=== PATIENT | female | born 1980 | race Caucasian/White ===

== ENCOUNTER → 2023-11-05 12:13 | Outpatient (REF) | payer OTHER, SELFPAY | LOC: HWRAD 12:13 | PROVIDERS: ATTENDING PHYSICIAN Nurse Practitioner Family; FAMILY PHYSICIAN Family Medicine | DX: M25.562 Pain in left knee (principal) | CPT/HCPCS: 73564 ==

== ENCOUNTER 2025-08-10 15:42 | Inpatient (IN) | payer OTHER, SELFPAY ==
[2025-08-10 13:16] VITALS: BP 129/80
[2025-08-10 13:26] VITALS: BMI 43.0
[2025-08-10 13:30] VITALS: BP 152/105
--- NOTE | 2025-08-10 13:34 | ED.GENMED ---
History of Present Illness
General
Chief Complaint: Chest Pain
Source: patient and family
Exam Limitations: none
Time Seen by Provider: 08/10/25 13:33
Nursing documentation reviewed up to this point in time: agreed with
History of Present Illness
History of Present Illness:
Note:
CHIEF COMPLAINT(S)
Chest pain.
HISTORY OF PRESENT ILLNESS
The patient is a 45-year-old female presenting with acute left-sided chest pain, which began approximately one hour prior to this evaluation. She reported that the pain began suddenly while she was taking care of her mother. Upon questioning, the
patient indicated that she has never experienced similar symptoms in the past. She currently smokes cigarettes, having recently started, and does not consume alcohol. The patient denies personal history of heart disease but mentions a family history
of cardiac problems. Upon examination and review of her symptoms, the patient was informed she is likely experiencing a myocardial infarction (heart attack). Immediate treatment in the emergency department included administration of aspirin,
heparin, and ticagrelor. Additional evaluation through cardiac catheterization is planned to assess for coronary artery blockages.
PAST MEDICAL AND SURIGICAL HISTORY
The patient has diabetes, hypertension, and hyperlipidemia.
CHRONIC MEDICAL CONDITIONS SIGNIFICANTLY AFFECTING CARE
Diabetes, hypertension, and hyperlipidemia are noted as chronic conditions.
SOCIAL HISTORY
The patient smokes cigarettes. No alcohol consumption is reported.
PHYSICAL EXAM
General: Alert, no acute distress.
Skin: Warm, dry.
Head: Normocephalic, atraumatic.
Neck: Supple, trachea midline.
Eye, Ears, Nose, Mouth, and Throat: Oral mucosa moist.
Cardiovascular: Normal peripheral perfusion, no edema. s1,s2, no murmurs
Respiratory: Respirations are non-labored. clear bilateral.
Gastrointestinal: Abdomen nondistended.
Back: Normal range of motion, normal alignment.
Musculoskeletal: Normal range of motion, normal strength.
Neurological: Alert and oriented to person, place, time, and situation, no focal neurological deficit observed.
Psychiatric: Cooperative, appropriate mood and affect.
PLAN
- Administered aspirin, heparin, and ticagrelor.
- Cardiac catheterization is planned to determine the presence of coronary artery blockages.
- Patient education on the procedure and potential findings.
DIFFERENTIAL DIAGNOSIS
The Differential Diagnosis includes, in no particular order and is not limited to:
1. Myocardial infarction
2. Angina pectoris
3. Pulmonary embolism
4. Aortic dissection
5. Pericarditis
6. Esophageal spasm
7. Gastroesophageal reflux disease
8. Panic attack
9. Costochondritis
10. Pneumothorax
EKG
My independent EKG interpretation is:
- Time of EKG: Not specified
- Rhythm: Normal sinus rhythm
- Heart Rate: 65 bpm
- [place] Interval: Not mentioned
- QRS Duration: Normal
- QT Interval: Not mentioned
- [place]: Normal
- Notable Abnormalities: ST elevation in inferior and lateral leads
- Additional Findings: ST depressions in concordant leads
Disposition:
SUMMARY OF ENCOUNTER
The patient, a 45-year-old female, presented to the emergency department with acute left-sided chest pain that began suddenly approximately one hour before evaluation. Given the presentation and risk factors, including smoking and family history of
cardiac issues, a myocardial infarction (heart attack) was suspected. Management in the emergency department included administration of aspirin and ticagrelor (Brilinta) along with ibuprofen. The patient was prepared for emergent cardiac
catheterization to assess for coronary artery blockages.
DISPOSITION
Admit to cardiac catheterization lab under Dr. Wang.
EMERGENCY TREATMENTS ADMINISTERED
Aspirin, ticagrelor (Brilinta), heparin.
MANAGEMENT OF THE PATIENTS CARE WAS DISCUSSED WITH
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 Wang.
PLAN
Emergent transfer to the cardiac catheterization lab for further evaluation and management in accordance with acute coronary syndrome protocols.
INDEPENDENT REVIEW OF LABS AND INTERPRETATION OF TESTS
My independent EKG interpretation: Normal sinus rhythm, heart rate 65 bpm, ST elevation in inferior and lateral leads, and ST depressions in concordant leads.
MEDICATION RECONCILIATION
Aspirin, ticagrelor (Brilinta), heparin administered.
MEDICAL DECISION MAKING
-Complexity of Data Reviewed: Chronic conditions affecting care include smoking. Differential diagnosis: Myocardial infarction, angina pectoris, pulmonary embolism, aortic dissection, pericarditis, esophageal spasm, gastroesophageal reflux disease,
panic attack, costochondritis, pneumothorax.
-Data:
Category 1
My independent interpretation of EKG: Normal sinus rhythm, heart rate 65 bpm, ST elevation in inferior and lateral leads, ST depressions in concordant leads.
Category 3
Discussion of management with Dr. Wang regarding emergent transfer to the cardiac catheterization lab.
DIAGNOSIS
1. Acute myocardial infarction (ME) - ICD-10: I21.9
Past History
Past History
ED Past Medical History: Other (had a 'torn achilles' same side )
ED Past Surgical History: Orthopedic
Social History
Alcohol: Occasional
Personal: Single
Living: with family
Employment: Employed
Phy Exam
Physical Exam
Physical Exam:
.
Scores
Heart Score for Chest Pain Patients
STEMI patient?: Yes
Course
Orders/Labs/Results
Orders:
Orders
08/10/25 13:15
EKG [Electrocardiogram (*1)] Urgent
Reason for Study: Chest Pain
EKG- Treatment ONCE
08/10/25 13:31
Heparin 1000 Units/500 ml [Heparin] 1,000 units in 500 ml .ROUTE .STK-MED
Heparin Sodium,Porcine/Ns/Pf [Heparin 2000 Units/1000 ml] 2,000 unit in 1,000 ml .ROUTE .STK-MED
Lidocaine HCl/Pf [Xylocaine-Mpf 1% Vial] 100 mg .ROUTE .STK-MED ONE
Nitroglycerin [Tridil] 1,500 mcg .ROUTE .STK-MED ONE
Verapamil Injectable [Isoptin/Verapamil Injection] 5 mg .ROUTE .STK-MED ONE
08/10/25 13:32
Fentanyl Citrate/Pf [Sublimaze] 100 mcg .ROUTE .STK-MED ONE
Heparin 10,000 units .ROUTE .STK-MED ONE
Midazolam HCl [Versed] 2 mg .ROUTE .STK-MED ONE
08/10/25 13:33
Cardiac Monitoring- Treatment ONCE
IV Insert/Care/Rem.- Treatment PRN
08/10/25 13:35
Complete Blood Count/With Diff Urgent
Comprehensive Metabolic Panel Urgent
PTT Urgent
Prothrombin Time Urgent
Troponin I Urgent
Vital Signs
Initial and Last Documented VS:
Initial Vital Signs
Temp Pulse Resp BP Pulse Ox
98.5 F 72 16 129/80 100
08/10/25 13:16 08/10/25 13:16 08/10/25 13:16 08/10/25 13:16 08/10/25 13:16
Last Documented Vital Signs
Temp Pulse Resp BP Pulse Ox
98.5 F 72 16 129/80 100
08/10/25 13:16 08/10/25 13:16 08/10/25 13:16 08/10/25 13:16 08/10/25 13:34
*Pulse Oximetry
SaO2: 100
Oxygen Mode of Delivery: Room air
Patient hypoxic: no
*Critical Care Note
Total Time (30-74mins, 75-104mins- exclusive of procedures): 10
comment:
critical care statement: A total of 10 minutes of critical care time was provided for this patient. This includes management of unstable vital signs, evaluation of the patient at bedside, reviewing the patient's pertinent medical records, discussion
with consultants, review of old EKGs and review of pertinent medical records. This time with separate from time utilized to perform the aforementioned documented procedures
ED Attending Note
-
Portions of this chart may have been created with voice recognition software.� Occasional wrong word or��sound alike� substitutions may have occurred due to the inherent limitations of voice recognition software.
Discharge Plan
Departure
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
Date of Disposition: 08/10/25
Time of Disposition: 13:34
Admit to: skill labor
Presentation/result/management discussed w/ accepting MD/DO: Felipe, cardiology
Patient with high blood pressure during this ER visit?: Yes
Condition: Fair
Discharge Problem:
ST elevation (STEMI) myocardial infarction
Prescriptions:
No Action
No Current Medications
0
Referrals:
[facility], [Other]
Deidre Arevalo PA-C [Family Provider, Family Practice]
Interventions
Interventions:
*Risk Screen - Suicide Last Done: 08/10/25 13:16
*Neglect/Abuse Screening Last Done: 08/10/25 13:16
Discharge Date and Time
Print Language: MOROCCAN
[2025-08-10 13:43] LABS: Hematocrit 41.8 % (37.0-47.0); Hemoglobin 14.0 g/dL (12.0-16.0); Mean Corp Hgb Conc. 33.5 g/dL (33.0-37.0); Mean Corpuscular Volume 87.4 fL (81.0-99.0); Nucleated Red Blood Cells % 0 %; Platelet Count 340 10^3/uL (130-400); Red Cell Dist. Width 12.5 % (11.5-14.5)
--- NOTE | 2025-08-10 13:43 | HPS.HSE ---
Addendum entered and electronically signed by MIRNA Aals 08/16/25 09:20:
Cardiogenic shock with acute hypotension requiring IV Levophed during the procedure
Original Note:
Family Physician
-
Family Physician: Deidre Arevalo PA-C
Chief Complaint
-
Chest pain
History of Present Illness
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 EKG on arrival with inferior MILLI. She was given Heparin, Brilinta, asa and brought urgently to [employer] [employer].
Medical History
Past Medical History
Past Medical History: Reports HTN and Hypothyroidism
Past Surgical History: Reports None
Social History
Tobacco: Smoker
Alcohol: None
Living: With Family
Family History
Family History: Not pertinent
Allergies / Home Medications
Allergies reflects when Allergies were last updated in [facility].
Home Medications with original date entered in [facility]
Allergy/Medication List:
Allergies
Allergy/AdvReac Type Severity Reaction Status Date / Time
No Known Allergies Allergy Verified 08/10/25 13:17
�Medication �Instructions �Recorded �Confirmed �Type
No Meds [No Current Medications] 08/10/25 08/10/25 History
Review of Systems
-
History Source: Patient
Cardiac: Reports Chest Pain
Physical Exam
Vital Signs
Vital Signs
Temp Pulse Resp BP Pulse Ox
98.5 F 72 16 129/80 100
08/10/25 13:16 08/10/25 13:16 08/10/25 13:16 08/10/25 13:16 08/10/25 13:34
Physical Exam
General: Pain (deferred as pt being prepped and draped for urgent procedure) and Morbidly Obese
Data Reviewed
-
Medical Tests (Nuc Med, Echo, EKG etc): Report Reviewed by me
Impression/Plan
-
PCP: Deidre Arevalo PA-C
IMPRESSION/PLAN:
#Chest pain/Acute inferior STEMI - urgent C, did receive heparin, asa, ticagrelor, on arrival to [employer] 12/05 chest pain
while getting access had VF arrest x 6 shocked and CHB, then asystole with CPR, Intubated and CT surgery at bedside to assist with ECMO as needed for support
Found to have occluded mid RCA, aspiration thrombectomy and successful PCI RCA x 1 JACQUE
She is in critical condition, and this diagnosis is a threat to life
Will admit to CVICU, serial troponin to peak, Check Echo today
DAPT ASA/Ticagrelor, CM to eval cost
Integrilin drip @18cc for 18hrs
consult Field Observer for ventilator management
Cardiac rehab c/s
#Elevated Blood pressure - was receiving pressor support during case, hold off on any BP treatment
#Elevated blood glucose - Check hbg A1c, will c/s DM if A1c elevated
#Morbid obesity - BMI 43, wt loss reinforced
Continue to monitor closely over then next 48 hours
[2025-08-10 13:52] LABS: INR 1.01; PT 13.9 Sec (11.4-14.6)
[2025-08-10 13:53] LABS: APTT 26.0 Sec (23.4-35.0)
[2025-08-10 13:56] LABS: ALT (SGPT) 14 U/L (0-35); AST (SGOT) 15 U/L (14-36); Albumin 4.2 g/dl (3.5-5.0); Alkaline Phosphatase 88 U/L (38-126); Blood Urea Nitrogen 11 mg/dl (7-17); Calcium 9.4 mg/dl (8.4-10.2); Carbon Dioxide 24 mmol/L (22-30); Chloride 102 mmol/L (98-107); Estimated Creatinine Clearance > 125 ml/min; Glucose 339 mg/dl (70-99); Potassium 4.3 mmol/L (3.5-5.1); Sodium 135 mmol/L (135-145); Total Protein 7.9 g/dl (6.3-8.2); eGFR > 60.00
[2025-08-10 14:08] LABS: Troponin I 0.018 ng/ml
[2025-08-10 14:12] LABS: Magnesium 1.8 mg/dl (1.6-2.3)
[2025-08-10 14:48] LABS: Hematocrit 35.7 % (37.0-47.0); Hemoglobin 12.2 g/dL (12.0-16.0); Mean Corp Hgb Conc. 34.2 g/dL (33.0-37.0); Mean Corpuscular Volume 85.6 fL (81.0-99.0); Platelet Count 321 10^3/uL (130-400); Red Cell Dist. Width 12.7 % (11.5-14.5)
[2025-08-10 14:52] LABS: INR 1.33; PT 17.0 Sec (11.4-14.6)
--- NOTE | 2025-08-10 15:03 | ITS.CL.ANGIO ---
Insurance Producer - Angioplasty
Angioplasty
Procedure Report:
CARDIAC CATHETERIZATION REPORT
Date of Procedure: 08/10/2025
Referring: Morgan Collins D.O.
INDICATION: Inferior ST elevation myocardial infarction.
PROCEDURE:
1. Left heart catheterization.
2. Coronary angiography.
3. ACLS with multiple points of access, multiple defibrillations and achievement of ROSC.
4. Endotracheal intubation.
5. Successful aspiration thrombectomy of the occluded mid RCA.
6. Successful PCI of the mid RCA lesion.
A total of 27 minutes of procedural/moderate sedation was utilized. An independent medical lead was present to assist with and help manage the patient's level of consciousness and physiologic status. After the patient's cardiac arrest,
anesthesia was called to the bedside and placed the patient in deep sedation with endotracheal intubation.
ACCESS:
1. 6 [place] right radial artery using a modified Seldinger technique under ultrasound guidance.
2. 6 [place]ian right common femoral vein using a modified Seldinger technique with a micropuncture kit under ultrasound guidance.
3. 6 [place] left common femoral artery using a modified Seldinger technique with a micropuncture kit under ultrasound guidance.
4. 6 [place] left common femoral vein using a modified Seldinger technique with a micropuncture kit under ultrasound guidance.
CATHETERS:
1. 5 [place] JR4.
2. 5 Gambian JL 3.5.
3. 6 [place]ian JR4 guiding catheter.
HEMODYNAMIC DATA
Weight (kg): 113.4
AO (s/d/x, mmHg): 136/86/108
LV (s/x mmHg): 136/30
AV gradient (x, mmHg): None.
LEFT VENTRICULOGRAPHY: Performed in an ROBERTS projection. Normal left ventricular size. There is akinesis of the basal to distal inferior wall with preservation of anterior, lateral and apical function. Left ventricular systolic function is
mildly reduced. LVEF estimated at 45-50%. There is no mitral valve regurgitation. There is no aortic valve insufficiency. The aortic root and visualized ascending aorta appear normal.
CORONARY ANGIOGRAPHY
Dominance: Right.
Left Main: Normal size, bifurcating vessel. There is no coronary artery disease.
LAD: Normal size vessel giving rise to 1 significant diagonal. There is an 80% lesion in the proximal LAD which is at least moderate to severely calcified. There is a 70% lesion in the mid LAD after the origin of the diagonal.
[place]: Congenitally absent.
Circumflex: Small size, nondominant vessel giving rise to 1 significant obtuse marginal. There is a 60% lesion in the midportion of the marginal.
RCA: Large size, dominant vessel with a large posterolateral arcade. The vessel is acutely occluded with a thrombotic, 100% lesion in the mid vessel.
INTERVENTION(S)
1. ACLS with multiple defibrillations.
2. Endotracheal intubation.
3. Establishment of right common femoral venous access.
4. Establishment of left common femoral venous and arterial access.
5. Successful aspiration thrombectomy of the right coronary artery, restoring ISSAC-3 flow.
6. Successful PCI of the mid RCA lesion (Xience Skypoint 3.0 x 28 JACQUE, postdilated with a 3.5 NC balloon) with reduction in stenosis to 0%, maintaining ISSAC-3 flow.
Narrative:
The decision was made to proceed with percutaneous coronary intervention. As we completed the diagnostic portion of the cardiac catheterization, the patient lapsed into ventricular fibrillation. She was defibrillated with religion of normal
sinus rhythm.
The diagnostic catheter was removed over a wire and a 6Fr JR4 guiding catheter was advanced to the aortic root and seated in the right coronary artery. Additional heparin was given and a Power Turn Flex wire was advanced into the distal RCA. Given
the high thrombus burden, the patient was started on eptifibatide with a double bolus and drip.
At this point, the patient went into ventricular fibrillation again. This ventricular fibrillation was much more refractory and required several defibrillation's as well as at least 4 minutes of high-quality CPR. The patient underwent ACLS per
protocol including initiation of amiodarone with bolus and drip. The patient was given a dose of magnesium and anesthesia was called for securing of the airway. Given the relative poor IV access, a right common femoral venous sheath was placed to
facilitate medication administration. After her fourth defibrillation, the patient was found to be in a normal sinus rhythm with complete heart block. Preparations were made for placement of a temporary pacemaker, though she ultimately regained AV
synchrony. Endotracheal intubation was performed and the patient was sedated with propofol and intermittent boluses of midazolam and fentanyl.
Given the hemodynamic instability, the CT surgery team was called to the Insurance Producer and preparation was made to place the patient on extracorporeal membranous oxygenation (ECMO). Access was established in the left common femoral artery and vein with
6 [place] sheaths. At this time, the patient had stabilized hemodynamically, though had required several more defibrillation's in the course of this preparation. The decision was made to proceed with coronary revascularization while we were making
the decision for mechanical circulatory support. Norepinephrine was started at 5 mcg/kg/min.
The decision was made to perform aspiration thrombectomy. An OSVALDO catheter was prepped and flushed on the back table then connected to a syringe which was pulled to negative. The catheter was advanced into the mid right coronary artery. The
stopcock was opened to the vacuum syringe and the catheter was passed through the thrombotic segment. The catheter was withdrawn from the guiding catheter, maintaining negative pressure. The contents were emptied into the filter basket. The
contents of the catheter included a 3 mm organized thrombus. Repeat angiography demonstrated an ulcerated lesion in the mid RCA with religion of ISSAC-3 flow.
The ulcerated, mid RCA lesion was predilated with a 2.0 x 12 semi-compliant balloon to 12 abran. The semi-compliant balloon was removed and a Xience Skypoint 3.0 x 28 drug-eluting stent was advanced. The stent was deployed at 12 atmospheres. The stent
balloon was removed. A 3.5 x 15 noncompliant balloon was advanced into the artery but would not pass into the stented segment, likely hitting the proximal stent edge. The noncompliant balloon was withdrawn and a GuideLiner was advanced over the 2.0
x 12 semicompliant balloon. The GuideLiner had difficulty crossing the stent edges well. The balloon was positioned at the proximal edge of the stent and inflated to 8 abran, biasing the GuideLiner away from the stent edge. The balloon was deflated
and the GuideLiner was advanced into sheathing motion. The semicompliant balloon was withdrawn, the 3.5 x 15 noncompliant balloon was readvanced into the stent and the stent was postdilated to 12 atmospheres in the distal margin and 15 abran in the
proximal margin. Angiography was performed in orthogonal views, confirming good stent expansion and an excellent angiographic result. The coronary wire was withdrawn and the guide was disengaged from the artery. The catheter was removed over a
standard J-wire. Norepinephrine was weaned off entirely.
Radial artery access was withdrawn and hemostasis was achieved with a radial band. The bilateral common venous access was secured and sutured in place. The left common femoral arterial access was sutured in place and connected to an arterial
monitor. The patient became progressively more restless and required increasing doses of sedative to maintain an adequate level of sedation without causing self-harm. The patient was transferred to the CVICU for further care.
Closure Device: Vascular band for the right radial artery. The right femoral venous sheath, left femoral venous sheath and left femoral arterial sheath were sutured in place for access and hemodynamic monitoring.
Radiation (mGy): 888.08
DAP (cm2.Gy): 59.6
Fluoroscopy time (minutes): 9.0
CONCLUSIONS
1. Right dominant circulation with an 80% lesion in the proximal LAD, 70% lesion in the mid LAD after the origin of the diagonal, a 60% lesion in the midportion of the obtuse marginal and a thrombotic, 100% mid RCA lesion status post successful
aspiration thrombectomy and PCI (Xience Skypoint 3.0 x 28 JACQUE, postdilated with a 3.5 NC balloon) with reduction in stenosis to 0%, restoring ISSAC-3 flow.
2. Severely elevated filling pressures (LVEDP = 30 mmHg at 113.4 kg).
3. Inferior hypokinesis with mild reduction in left ventricular systolic function (LVEF 45-50%).
4. Ventricular fibrillation arrest requiring endotracheal intubation, ACLS with multiple defibrillations.
RECOMMENDATIONS:
1. Expectant management after cardiac catheterization via right radial and femoral approach.
2. Limited weight bearing on the right wrist for one week.
3. Dual antiplatelet therapy with aspirin and ticagrelor for at least 12 months, followed by aspirin indefinitely.
4. Aggressive secondary prevention with high-dose, high potency statin.
5. OMT/GDMT as hemodynamics will tolerate.
6. Wean vent to extubate.
7. Echocardiogram pending.
8. Discussion with CT surgery regarding optimal revascularization strategy of proximal LAD including possible plaque modification and PCI versus MIDCAB.
9. Referral to cardiac rehab after complete revascularization.
Copy to: Chadwick Walker D.O.
Librado Wang DO, FACC, FACP
--- NOTE | 2025-08-10 15:06 | W.PN.ANESINT ---
Anesthesia Intubation Note
- Intubation Note
Intubation Note:
Diagnosis: VF arrest, acute respiratory failure
Blade: mac 4
Tube Size: 8.0
Depth: 22
Side Taped: right
Drugs Used: propofol 80mg, succ 100mg, phenylephrine 100mcg for intubation, followed by rocuronium 40mg and propofol 50mg
Grade View: 1
EtCO2 Present: yes
Atraumatic: yes (blood present around ora cavity prior to intubation)
Attempts: 1
Start and Stop Time: 9559-3558
SaO2 Pre: 96
SaO2 Post: 99
Glidescope Used: yes
Other Airway Adjustments:
Pre-Oxygenated: yes
Portable Chest X-Ray: pending
RSI: yes
Suctioned: no
Bilateral Breath Sounds Confirmed: yes
Vent Settings:
Settings per Attending Physician
[2025-08-10 15:17] LABS: APTT > 200 Sec (23.4-35.0)
[2025-08-10 15:18] LABS: ALT (SGPT) 53 U/L (0-35); AST (SGOT) 73 U/L (14-36); Albumin 3.4 g/dl (3.5-5.0); Alkaline Phosphatase 83 U/L (38-126); Blood Urea Nitrogen 11 mg/dl (7-17); Calcium 7.8 mg/dl (8.4-10.2); Carbon Dioxide 15 mmol/L (22-30); Chloride 105 mmol/L (98-107); Estimated Creatinine Clearance > 125 ml/min; Glucose 427 mg/dl (70-99); Potassium 3.0 mmol/L (3.5-5.1); Sodium 134 mmol/L (135-145); Total Protein 6.7 g/dl (6.3-8.2); eGFR > 60.00
[2025-08-10 15:22] LABS: Troponin I 0.490 ng/ml
[2025-08-10 15:36] LABS: Nucleated Red Blood Cells % 0 %
[2025-08-10] MEDS: SUBLIMAZE 100 MCG IV ×2 (15:46→16:39)
[2025-08-10] MEDS: SUBLIMAZE 100 IV (15:48)
--- NOTE | 2025-08-10 15:50 | ECGCV ---
Dr. Wang notified of ECG critical value identified by electronic interpretation on ECG completed on 08/10/2025, at 1540.
[2025-08-10] MEDS: NSS 1000 IV (15:52)
[2025-08-10] MEDS: INTEGRILIN 100 IV (15:53)
--- NOTE | 2025-08-10 16:00 | CON.INTV ---
Consultation
Consultation Request
Date/Time Consultation Requested: 08/10/20251458
Date/Time Consultation Performed: 08/10/2025 - 1509
Requesting Provider: MIRNA Ocampo
Performing Provider: Dr. Chacon
Reason for Consultation: Cardiac arrest
Medical History
-
Chief Complaint: Chest pain
History of Present Illness:
45-year-old morbidly obese female active tobacco smoker with a past medical history of hypertension and hypothyroidism who presents with left-sided chest pain that started within the hour prior to arrival while she was caring for her mother. She
was diaphoretic when her symptoms started so she came here to the hospital. Initial EKG showed ST elevation in the inferolateral leads with reciprocal ST depression in the zora-lateral leads. Initial pulse rate 91 + respiratory rate 20. Initial
labs showed leukocytosis to 14.1, Hb 14, glucose 239, and initial troponin 0.018 which increased about 45 minutes later to 0.49. Cardiology consulted and she was emergently brought to the [facility]. Coronary angiography showed an LAD 80% lesion
which was moderate�severely calcified as well as a 70% lesion in the mid LAD after the origin of the diagonal, with an acutely occluded, thrombotic 100 send lesion in the mid RCA. After the diagnostic portion she went into V-fib and was
defibrillated with evangelical of NSR. Patient has started on eptifibatide and then patient went into VF again which was refractory with multiple defibrillation attempts needed in addition to ACLS/CPR. Amiodarone also given during this time.
After the fourth defibrillation, patient obtained ROSC and was found to be in normal sinus rhythm with complete heart block. Preparations were being made for a temporary pacemaker but then she regained AV synchrony so TVP attempts was canceled.
Patient was then intubated and sedated by anesthesia. CT surgery team was called to consider ECMO given her hemodynamic instability. Left common femoral artery access was obtained in the event that ECMO was needed. She was started on Levophed at
5 mcg/min. Patient then underwent aspiration thrombectomy of the RCA and then a JACQUE x1 was placed. Procedure ended and then patient transferred to the CVICU for further care with performance instructor service consulted for additional
management/recommendations.
When I saw the patient, she was restless, trying to sit up out of bed, moving all 4 extremities and agitated. Intubated on AC/CMV currently at 12/550/60%/5 with PIP: 32 cmH2O, VTe 602 cc and breathing at 12 breaths/min. Currently on amiodarone 1
mg/min. Heart rate 92 and BP via A-line 160/66.
PMHx: Hypertension, hypothyroidism, tobacco use disorder
PSHx: Noncontributory
Past Medical History
Past Medical History: Other (Above as per HPI)
Past Surgical History: Other (Above as per HPI)
Social History
Tobacco: Smoker
Alcohol: None
Drug: Other (Unable to obtain given patient's acute clinical status)
Family History
Family History: Unable to Obtain (Given patient's acute clinical status)
Allergies / Home Medications
Allergies
Allergy/AdvReac Type Severity Reaction Status Date / Time
No Known Allergies Allergy Verified 08/10/25 13:17
Home Medications
�Medication �Instructions �Recorded �Confirmed �Last Taken �Type
No Meds [No Current Medications] 08/10/25 08/10/25 Unknown History
Review of Systems
-
Unable to Obtain full review of systems at this time due to: Acuity and Patient Intubation
Vitals / Labs / Diagnostic Testing
Vital Signs
Temp Pulse Resp BP Pulse Ox
98.5 F 82 20 152/105 100
08/10/25 13:16 08/10/25 16:55 08/10/25 16:55 08/10/25 13:30 08/10/25 16:15
Lab Data
08/10/25 14:15
Laboratory Results
08/10/25 08/10/25 08/10/25
13:35 14:15 15:57
PT 13.9 17.0 H
INR 1.01 1.33
APTT 26.0 > 200 H*
pH 7.26 L
pCO2 41 H
pO2 229 H
HCO3 18.4 L
O2 Delivery Level
Diagnostic Testing:
Physical Exam
-
HEENT: Normocephalic, Anicteric and Other (ETT in place)
Cardiovascular: S1/S2 and Peripheral Edema (Trace LE edema bilaterally)
Respiratory: Wheeze (negative), Rales (Bilateral), Rhonchi (negative), Non-Labored Respirations and Other (Mechanical breath sounds heard bilaterally)
GI: Soft, Non Distended, Non Tender and Normal Bowel Sounds
Neurology: Tremors (negative) and Other (Sedated although having paroxysms of agitation, moving all 4 extremities and trying to sit up)
Skin: Warm and Dry
General: Respiratory Distress (negative), Fever (negative) and Chills (negative)
Assessment
-
Assessment: 45-year-old morbidly obese female active tobacco smoker with a past medical history of hypertension and hypothyroidism who presents with left-sided chest pain that started within the hour prior to arrival while she was caring for her
mother. She was diaphoretic when her symptoms started so she came here to the hospital. Initial EKG showed ST elevation in the inferolateral leads with reciprocal ST depression in the zora-lateral leads. Initial pulse rate 91 + respiratory rate
20. Initial labs showed leukocytosis to 14.1, Hb 14, glucose 239, and initial troponin 0.018 which increased about 45 minutes later to 0.49. Cardiology consulted and she was emergently brought to the [facility]. Coronary angiography showed an LAD
80% lesion which was moderate�severely calcified as well as a 70% lesion in the mid LAD after the origin of the diagonal, with an acutely occluded, thrombotic 100 send lesion in the mid RCA. After the diagnostic portion she went into V-fib and was
defibrillated with evangelical of NSR. Patient has started on eptifibatide and then patient went into VF again which was refractory with multiple defibrillation attempts needed in addition to ACLS/CPR. Amiodarone also given during this time.
After the fourth defibrillation, patient obtained ROSC and was found to be in normal sinus rhythm with complete heart block. Preparations were being made for a temporary pacemaker but then she regained AV synchrony so TVP attempts was canceled.
Patient was then intubated and sedated by anesthesia. CT surgery team was called to consider ECMO given her hemodynamic instability. Left common femoral artery access was obtained in the event that ECMO was needed. She was started on Levophed at
5 mcg/min. Patient then underwent aspiration thrombectomy of the RCA and then a JACQUE x1 was placed. Procedure ended and then patient transferred to the CVICU for further care with performance instructor service consulted for additional
management/recommendations.
Chronic conditions GHOST WRITER: Hypertension, hypothyroidism, tobacco use disorder
Impression:
#Inferior ST elevation OK s/p LHC with suction aspiration thrombectomy of RCA + PCI of mid RCA lesion with JACQUE x 1 placed
#In-hospital cardiac arrest (VF arrest occurred during cardiac catheterization at the end of diagnostic portion and recurrent VF arrest during therapeutic portion)
#Ischemic cardiomyopathy/acute HFmrEF (EF: 45-50% on left ventriculography during LHC on 08/10/2025)
#Leukocytosis
#Hypokalemia
#Metabolic acidosis with borderline increased anion gap
#Hyperglycemia
#Transaminitis likely due to ischemia during cardiac arrest
#Elevated troponin in the setting of STEMI with troponin rising to 56.9 in setting of s/p LHC
#Tobacco use disorder
#Hypertension
#History of hypothyroidism
Plan:
- Patient is critically ill on mechanical ventilation and amiodarone drip after suffering recurrent V-fib arrest during coronary angiography
- Low suspicion for anoxic brain injury since patient lost pulse while in the [facility] with calderon initiation of ACLS/CPR and defibrillation when indicated
- Given patient's cardiac arrest, would maintain lowest level of effective sedation needed so that we can assess mental status and assess for anoxic brain injury
- Recommend that she obtain a CT head tomorrow to evaluate brain parenchyma
- Avoid fever
- Maintain MAP >65
- She will need an ICD for secondary prevention prior to discharge, depending on her recovery during her hospitalization - defer this decision to EP
- Continue amiodarone while trending LFTs
- Replete K>4, Mg>2
- Continue with mechanical ventilation with daily SAT/SBT if clinically appropriate
- Maintain plateau pressure <30 and titrate FiO2 + PEEP to keep SpO2 >90-94%
- Continue aspiration precautions; keep HOB >30-45�
- prn nebulized bronchodilators - not currently bronchospastic
- Oropharyngeal + deep ETT suctioning with subglottic as needed
- Daily CXR + blood gas
- Daily vent adjustments as needed based on blood gas and SaO2
- Low level of sedation with goal RASS as 0 to -2
- Patient has leukocytosis and CXR shows a left perihilar patchy parenchymal opacity � given her cardiac arrest, she likely aspirated. I will start her on Unasyn
- Check sputum culture if we can obtain a decent sample from ETT
- Check urine antigens for Legionella + strep pneumonia
- Trend WBC and monitor temperature curve
- Given her acute STEMI, would try to avoid a nicotine patch
- Continue DAPT with ASA + ticagrelor
- Check echo (already completed � follow-up official report)
- Cardiology on board and recommendations appreciated
- High intensity statin
- Check A1c + lipid panel
- Start beta-fely if remaining hemodynamically stable
- Continue to trend serum bicarbonate level; adjust ventilator based on blood gas and if serum bicarbonate level continues to decrease below <14 then would start bicarb drip (with sterile water)
- Maintain euglycemia with goal BG 140-180; A1C is pending; start ISS q6hr for now; may need insulin gtt
- Trend H/H and transfuse if needed to keep Hb>8g/dL; keep plt>50k (given her s/p LHC status now on DAPT)
- Start stress ulcer ppx with PPI
- DVT ppx: LMWH
Continue CVICU level of care for this critically ill patient. Needle Grinder service will continue to follow along.
Critical care statement: A total of 42 minutes of critical care time was provided for this patient today. This includes management of unstable vital signs, evaluation of the patient at bedside, reviewing the patient's pertinent medical records
including radiographs, microbiology, laboratory evaluations, and discussion with primary team, consultants, pharmacy, nutrition, physical therapy, case management, charge nurse, critical care nursing, and respiratory therapy.
[2025-08-10 16:05] LABS: B.E. -8.3 mmol/L; HCO3 18.4 mmol/L (21-28); O2 Saturation % 100.0 % (94-98); PCO2 41 mmHg (32-35); PO2 229 mmHg (83-108); Potassium 3.6 mMOL/L (3.5-5.1); Sodium 133 mMOL/L (136-145)
[2025-08-10] MEDS: VERSED 1 MG IV (16:10)
[2025-08-10 16:19] LABS: Triglycerides 83 mg/dl (10-149)
[2025-08-10] MEDS: VERSED IV (16:20)
[2025-08-10 16:31] LABS: Troponin I 56.900 ng/ml
[2025-08-10] MEDS: VERSED 2 MG IV (16:33)
[2025-08-10] MEDS: SODIUM BICARBONATE 100 MEQ IV (16:33)
[2025-08-10] MEDS: STERILE WATER FOR INJECTION 2.1 ML IM (16:37)
[2025-08-10] MEDS: ZYPREXA 10 MG IM (16:37)
[2025-08-10] MEDS: KCL 160 MEQ IV (16:40)
--- NOTE | 2025-08-10 16:59 | PTCARENOTE ---
Received pt from trestle mainternance laborer at 1540; pt intubated/agitated and sedated; NSR 1st AVB on monitor and VSS; PIV x2, LFV, LFA, and RFV all lines leveled and zeroed; Propofol, Eptifibatide, Amiodarone infusing; Fentanyl bolus and drip, see flow sheet for
details; Lungs diminished; ETT 8 22 @ lip; vent settings A/C 60%/5/550/20; suction bloody secretions; hypoactive bowel sounds; OGT 80 at lip; Noel catheter placed by RN and draining clear yellow urine; Doppler lower extremity pulses present; see
nursing documentation for further details.
See MAR for Fentanyl, Versed boluses and Zyprexa IM.
[2025-08-10 17:22] LABS: Urine Character Clear (Clear)
[2025-08-10] MEDS: DIPRIVAN 100 IV ×3 (17:22→23:09)
[2025-08-10 17:30] LABS: Urine Squamous Cell 0-2 /LPF (Few)
[2025-08-10 17:31] LABS: Urine Red Blood Cell 21-25 /HPF (0-2); Urine White Cell 0-2 /HPF (0-5)
[2025-08-10 17:48] LABS: B.E. -3.4 mmol/L; HCO3 19.7 mmol/L (21-28); O2 Saturation % 99.5 % (94-98); PCO2 29 mmHg (32-35); PO2 198 mmHg (83-108)
[2025-08-10 18:13] LABS: Glucose - Point of Care 426 mg/dl (70-99)
[2025-08-10] MEDS: PROTONIX IV 40 MG IV (18:13)
[2025-08-10] MEDS: CRESTOR 40 MG PO (18:13)
[2025-08-10] MEDS: NSS (PRESERVATIVE FREE) 10 ML IV (18:13)
[2025-08-10 18:43] LABS: Blood Urea Nitrogen 11 mg/dl (7-17); Calcium 8.2 mg/dl (8.4-10.2); Carbon Dioxide 21 mmol/L (22-30); Chloride 106 mmol/L (98-107); Estimated Creatinine Clearance > 125 ml/min; Glucose 371 mg/dl (70-99); Potassium 4.2 mmol/L (3.5-5.1); Sodium 132 mmol/L (135-145); eGFR > 60.00
[2025-08-10] MEDS: NOVOLIN R INSULIN INFUSION 100 IV (18:58)
[2025-08-10] MEDS: NOVOLIN R 8 UNITS IV (18:58)
--- NOTE | 2025-08-10 19:00 | PTCARENOTE ---
bedside report received from previous RN. pt flat in bed, intubated via ETT. sedated on Propofol gtt @ 50mcg and Fentanyl gtt @ 100mcg. vent set to AC 20/550/5/40%. POX 100%. bilateral breath sounds present. SR w 1st degree AVB on monitor, HR
60s-70s. B/L radial pulses palpable. B/L DP pulses present by doppler. RFV sheath intact and patent. LFV sheath intact and patent. LFA sheath intact w good waveform. SBP 90s-100s. heart tones clear. no edema noted. fang catheter in place, draining
CYU. hypoactive bowel sounds present. OGT in place to R lip @ 80cm. ABG drawn and sent per orders. see worklist for full assessment, VS, and interventions.
[2025-08-10] MEDS: NSS VEN SHEATH (19:18)
[2025-08-10 19:24] LABS: B.E. -4.0 mmol/L; HCO3 19.2 mmol/L (21-28); O2 Saturation % 99.4 % (94-98); PCO2 29 mmHg (32-35); PO2 153 mmHg (83-108); Potassium 3.7 mMOL/L (3.5-5.1)
[2025-08-10] MEDS: BRILINTA 90 MG PO (19:50)
[2025-08-10] MEDS: SODIUM BICARBONATE 50 MEQ IV (19:56)
[2025-08-10] MEDS: CALCIUM GLUCONATE 100 IV ×2 (19:57→22:37)
[2025-08-10] MEDS: KCL 50 IV (19:57)
[2025-08-10] MEDS: NSS 500 VEN SHEATH (20:00)
[2025-08-10 20:16] LABS: Glucose - Point of Care 279 mg/dl (70-99)
[2025-08-10 20:35] LABS: Magnesium 1.8 mg/dl (1.6-2.3)
[2025-08-10 20:58] LABS: Glucose - Point of Care 230 mg/dl (70-99)
[2025-08-10 21:04] LABS: B.E. -1.8 mmol/L; HCO3 21.7 mmol/L (21-28); O2 Saturation % 99.8 % (94-98); PCO2 32 mmHg (32-35); PO2 156 mmHg (83-108)
[2025-08-10 21:30] VITALS: BP_SYST 85
[2025-08-10] MEDS: UNASYN IV (21:41)
[2025-08-10 21:51] LABS: Hematocrit 32.9 % (37.0-47.0); Hemoglobin 11.3 g/dL (12.0-16.0); Platelet Count 286 10^3/uL (130-400)
[2025-08-10 22:01] LABS: Glucose - Point of Care 178 mg/dl (70-99)
[2025-08-10] MEDS: MAGNESIUM SULFATE 50 IV (22:04)
[2025-08-10 22:11] VITALS: BP_SYST 115
[2025-08-10] MEDS: CORDARONE 259 MG IV (22:39)
--- NOTE | 2025-08-10 23:00 | PTCARENOTE ---
pt remains intubated, vent set to AC 18/500/5/40%. PXO 100%. Propofol gtt @ 50mcg, Fentanyl gtt @ 100mcg. SR w 1st degree AVB, HR 60s-70s. B/L groin sites stable. pt now on Levo gtt @ 2mcg. SBP 90s-100s. UO WNL. OGT remains in place to LIS.
[2025-08-10 23:06] LABS: Glucose - Point of Care 167 mg/dl (70-99)
[2025-08-10 23:56] LABS: Glucose - Point of Care 175 mg/dl (70-99)
[2025-08-11] VITALS (29 sets, daily range): BP systolic 95–152; BP diastolic 69–102; BMI 43.6
[2025-08-11 00:02] LABS: B.E. -0.6 mmol/L; HCO3 23.1 mmol/L (21-28); O2 Saturation % 99.7 % (94-98); PCO2 34 mmHg (32-35); PO2 167 mmHg (83-108); Potassium 3.6 mMOL/L (3.5-5.1)
[2025-08-11] MEDS: KCL 100 IV (00:24)
[2025-08-11 00:26] LABS: Magnesium 2.3 mg/dl (1.6-2.3)
[2025-08-11] MEDS: SUBLIMAZE 100 IV ×2 (00:54→08:55)
[2025-08-11] MEDS: INTEGRILIN 100 IV ×2 (00:55→07:23)
[2025-08-11 01:00] LABS: Troponin I 93.000 ng/ml
[2025-08-11 01:55] LABS: Glucose - Point of Care 163 mg/dl (70-99)
[2025-08-11] MEDS: UNASYN IV ×3 (02:42→15:52)
[2025-08-11] MEDS: DIPRIVAN 100 IV ×2 (02:42→08:34)
--- NOTE | 2025-08-11 03:00 | PTCARENOTE ---
pt remains intubated, vent set to AC 18/500/5/40%. POX 100%. Propofol gtt @ 45mcg, Fentanyl gtt @ 100mcg. SR w 1st degree AVB, HR 60s. B/L groin sites stable. Levo gtt @ 2mcg. SBP 90s-110s. Amio gtt maintained @ 1mg. Integrilin gtt maintained @
2mcg/kg/min. CT PA aware of UO. OGT remains in place to LIS. Insulin gtt maintained per glycemic protocol.
[2025-08-11] MEDS: VERSED 2 MG IV (03:29)
--- NOTE | 2025-08-11 03:30 | PTCARENOTE ---
pt became extremely agitated and restless, biting down on ETT, hypertensive w SBP 150s; pt did not follow any commands. 2mg PRN Versed given.
[2025-08-11] MEDS: SUBLIMAZE 100 MCG IV (03:50)
[2025-08-11 04:10] LABS: Glucose - Point of Care 156 mg/dl (70-99)
--- NOTE | 2025-08-11 04:45 | ECGCV ---
Erik Rizzo PA-c notified of ECG critical value identified by electronic interpretation on ECG completed on 08/11/2025, at 0444.
[2025-08-11 05:52] LABS: B.E. -2.5 mmol/L; HCO3 22.5 mmol/L (21-28); O2 Saturation % 99.3 % (94-98); PCO2 39 mmHg (32-35); PO2 102 mmHg (83-108)
[2025-08-11 05:54] LABS: Hematocrit 33.5 % (37.0-47.0); Hemoglobin 11.3 g/dL (12.0-16.0); Mean Corp Hgb Conc. 33.7 g/dL (33.0-37.0); Mean Corpuscular Volume 86.1 fL (81.0-99.0); Nucleated Red Blood Cells % 0 %; Platelet Count 260 10^3/uL (130-400); Red Cell Dist. Width 13.1 % (11.5-14.5)
[2025-08-11 06:26] LABS: Glucose - Point of Care 174 mg/dl (70-99)
[2025-08-11 06:26] LABS: ALT (SGPT) 81 U/L (0-35); AST (SGOT) 347 U/L (14-36); Albumin 3.1 g/dl (3.5-5.0); Alkaline Phosphatase 73 U/L (38-126); Blood Urea Nitrogen 11 mg/dl (7-17); Calcium 8.6 mg/dl (8.4-10.2); Carbon Dioxide 25 mmol/L (22-30); Chloride 109 mmol/L (98-107); Estimated Creatinine Clearance > 125 ml/min; Glucose 164 mg/dl (70-99); HDL Cholesterol 29 mg/dl; LDL Cholesterol, Calculated 103 mg/dl; Magnesium 2.1 mg/dl (1.6-2.3); Potassium 4.2 mmol/L (3.5-5.1); Sodium 135 mmol/L (135-145); Total Protein 6.5 g/dl (6.3-8.2); Very Low Density Lipoprotein 30 mg/dl (0-30); eGFR > 60.00
[2025-08-11 07:21] LABS: Troponin I 75.400 ng/ml
--- NOTE | 2025-08-11 07:34 | PN.DE.MGMTRT ---
Insulin Management
- -
08/11/2025: Diabetes Management Consult
45 year old woman with PMH: HTN, HLD, hypothyroidism, Tobacco use T2DM and Morbid Obesity, presenting with left-sided chest pain that started within the hour prior to arrival while she was caring for her mother. She was noted for acute inferior
STEMI s/p PCI with JACQUE to RCA.
Patient had multiple VF arrests during the case requiring intubation.
This morning remains intubated, sedated and on pressors. unable to interview and no family at bedside. All information obtained from chart review
Was taking not taking any diabetes medications per chart review. A1C is 10.7%, Cr 0.4, eGFR >60
Glucose on admission was 239. Patient was initiated on Critical care glycemic protocol. Glucose range of 156 to 174, receiving 1.7 to 2 units of insulin/hr
Will continue glycemic protocol for now. Reassess in AM readiness to transition off insulin infusion to SQ insulin
Pt will need Basal bolus insulin at transition and at discharge for new Dx T2DM.
Will ask Diabetes Nurse Educator to see pt on Thursday for monitor and insulin instructions.
Diabetes History
- -
Type of Diabetes: 2 requiring insulin
Pre-Admission Diabetes Regimen
08/10/25 08/10/25 08/10/25
13:35 14:15 17:39
Creatinine 0.5 L 0.5 L 0.4 L
08/11/25
05:02
Creatinine 0.4 L
Insulin Pump Settings
IP Diabetes Regimen
08/10/25 08/10/25 08/10/25
13:35 14:15 17:39
Glucose 339 H 427 H 371 H
POC Glucose
08/10/25 08/10/25 08/10/25
18:11 20:15 20:57
Glucose
POC Glucose 426 H 279 H 230 H
08/10/25 08/10/25 08/10/25
21:59 23:05 23:55
Glucose
POC Glucose 178 H 167 H 175 H
08/11/25 08/11/25 08/11/25
01:54 04:09 05:02
Glucose 164 H
POC Glucose 163 H 156 H
08/11/25
06:25
Glucose
POC Glucose 174 H
Patient Education
--- NOTE | 2025-08-11 08:18 | W.PN.INTV ---
Today's Communication / Plan
Recommendations
Transferred from CVICU to ICU
Mechanical ventilation with SBT/SAT this morning
Once extubated, nursing to check bedside swallow evaluation
If extubated, can start diabetic diet if she can safely swallow; otherwise she will need an LOCAL AREA NETWORK SYSTEMS ADMINSTRATOR evaluation
Antibiotics for bibasilar pneumonia (aspiration)
Continue DAPT
Statin on hold for now given worsening transaminitis; trend LFTs
Stop amiodarone given no recurrence of VT or NSVT since patient was revascularized yesterday
Bowel regimen
Patient remains critically ill; continue with ICU level of care
Assessment
-
Assessment: 45-year-old morbidly obese female active tobacco smoker with a past medical history of hypertension and hypothyroidism who presents with left-sided chest pain that started within the hour prior to arrival while she was caring for her
mother. She was diaphoretic when her symptoms started so she came here to the hospital. Initial EKG showed ST elevation in the inferolateral leads with reciprocal ST depression in the zora-lateral leads. Initial pulse rate 91 + respiratory rate
20. Initial labs showed leukocytosis to 14.1, Hb 14, glucose 239, and initial troponin 0.018 which increased about 45 minutes later to 0.49. Cardiology consulted and she was emergently brought to the [facility]. Coronary angiography showed an LAD
80% lesion which was moderate�severely calcified as well as a 70% lesion in the mid LAD after the origin of the diagonal, with an acutely occluded, thrombotic 100 send lesion in the mid RCA. After the diagnostic portion she went into V-fib and was
defibrillated with scientology of NSR. Patient has started on eptifibatide and then patient went into VF again which was refractory with multiple defibrillation attempts needed in addition to ACLS/CPR. Amiodarone also given during this time.
After the fourth defibrillation, patient obtained ROSC and was found to be in normal sinus rhythm with complete heart block. Preparations were being made for a temporary pacemaker but then she regained AV synchrony so TVP attempts was canceled.
Patient was then intubated and sedated by anesthesia. CT surgery team was called to consider ECMO given her hemodynamic instability. Left common femoral artery access was obtained in the event that ECMO was needed. She was started on Levophed at
5 mcg/min. Patient then underwent aspiration thrombectomy of the RCA and then a JACQUE x1 was placed. Procedure ended and then patient transferred to the CVICU for further care with jack prizer service consulted for additional
management/recommendations.
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
Impression:
#Inferior ST elevation WA s/p LHC with suction aspiration thrombectomy of RCA + PCI of mid RCA lesion with JACQUE x 1 placed
#In-hospital cardiac arrest (VF arrest occurred during cardiac catheterization at the end of diagnostic portion and recurrent VF arrest during therapeutic portion)
#Ischemic cardiomyopathy/acute HFmrEF (EF: 45-50% on left ventriculography during LHC on 08/10/2025)
#Leukocytosis
#Multifocal pneumonia (CAP) likely due to aspiration during her cardiac arrest on 08/10/2025
#Hypokalemia
#Metabolic acidosis with borderline increased anion gap
#DM type II c/b hyperglycemia requiring insulin gtt
#Transaminitis likely due to ischemia during cardiac arrest
#Elevated troponin in the setting of STEMI with troponin rising to 56.9 in setting of s/p LHC
#Tobacco use disorder
#Hypertension
#History of hypothyroidism
Plan:
- Patient remains critically ill on mechanical ventilation and s/p amiodarone drip after suffering recurrent V-fib arrest during coronary angiography
- Since patient was revascularized on 08/10, she has had no recurrence of her V-fib or NSVT. Per cardiology, amiodarone stopped. Monitor on telemetry
- Replete K>4, Mg>2
- Low suspicion for anoxic brain injury since patient lost pulse while in the [facility] with calderon initiation of ACLS/CPR and defibrillation when indicated
- CT head checked this morning showing no acute intracranial O'Afsaneh. There was mild acute sinusitis
- Avoid fever
- Maintain MAP >65
- She will need an ICD for secondary prevention prior to discharge, depending on her recovery during her hospitalization - defer this decision to EP
- Continue with mechanical ventilation with daily SAT/SBT if clinically appropriate - -> plan to extubate today as long as she does well on PST on PEEP of 0
In the meantime:
- Maintain plateau pressure <30 and titrate FiO2 + PEEP to keep SpO2 >90-94%
- Continue aspiration precautions; keep HOB >30-45�
- prn nebulized bronchodilators - not currently bronchospastic
- Oropharyngeal + deep ETT suctioning with subglottic as needed
- Daily CXR + blood gas
- Daily vent adjustments as needed based on blood gas and SaO2
- Low level of sedation with goal RASS as 0 to -2
- Patient has leukocytosis and CXR shows a left perihilar patchy parenchymal opacity � given her cardiac arrest, she likely aspirated, which was confirmed on CT chest that showed bibasilar consolidative opacities (L>R) with small bilateral pleural
effusions
- Continue Unasyn
- Follow up sputum Cx (collected 08/10/2025 and shows NGTD)
- Urine antigens for Legionella + strep pneumonia both negative
- Trend WBC and monitor temperature curve
- Given her acute STEMI, would try to avoid a nicotine patch
- Continue DAPT with ASA + ticagrelor
- Echo performed on 08/10 shows mildly reduced LVEF at 45-50% with hypokinesis of the basal to apical inferior/inferoseptal valles with no significant valvular disease
- Cardiology on board and recommendations appreciated
- High intensity statin on hold given her transaminitis
- A1c: 10.7; LDL: 103
- Start beta-fely if remains hemodynamically stable
- Maintain euglycemia with goal BG 140-180; A1C 10.7; continue insulin gtt and if extubated today then will wean off insulin gtt and start lantus with ISS
- Trend H/H and transfuse if needed to keep Hb>8g/dL; keep plt>50k (given her s/p LHC status now on DAPT)
- Start stress ulcer ppx with PPI
- DVT ppx: LMWH
I updated the father, Nolberto, at bedside and answered all of his questions.
Continue ICU level of care for this critically ill patient.
Critical care statement: A total of 38 minutes of critical care time was provided for this patient today. This includes management of unstable vital signs, evaluation of the patient at bedside, reviewing the patient's pertinent medical records
including radiographs, microbiology, laboratory evaluations, and discussion with primary team, consultants, pharmacy, nutrition, physical therapy, case management, charge nurse, critical care nursing, and respiratory therapy.
Subjective Dataa
Subjective Data
Date of Service:
Date of Service: August 11, 2025
Chief Complaint: Piercing Specialist Follow Up
Subjective:
Patient seen and evaluated this AM. Current heart rate 77, SpO2 98% and she remains intubated on 18/500/40%/5, with PIP: 16 cmH2O, VTe 531 cc and breathing at 21 breaths/min. Currently on insulin drip at 1.7 units/hr and Levophed at 3 mcg/min.
Patient's father, Nolberto, is present at bedside and all questions were answered. Patient is currently sedated on propofol at 50 mcg/kg/min and fentanyl drip at 125 mcg/hr. When sedation is lowered, she is arousable and following commands and is calm.
Of note, patient was transferred from the CVICU to the ICU this morning.
Review of Systems
General: Unobtainable - Sedation (+ Intubated)
Objective Data
Data Reviewed
Vital Signs / I&O / Oxygen:
Vital Signs
Temp Pulse Resp BP Pulse Ox
99.1 F 66 18 152/105 99
08/11/25 09:00 08/11/25 09:00 08/11/25 09:00 08/10/25 13:30 08/11/25 10:13
Intake and Output
08/10/25 08/11/25 08/12/25
06:59 06:59 06:59
Intake Total 2165.7 / 2165.7 168.0 / 168.0
Output Total 1580 / 1580 60 / 60
Balance 585.7 / 585.7 108.0 / 108.0
SaO2 [A/C] 100
SaO2 99
Physical Exam
General: Respiratory Distress (negative), Chills (negative) and Sweats (negative)
HEENT: Normocephalic, Anicteric, Other (ETT in place) and Other (Thick neck)
Cardiovascular: S1-S2 and Peripheral Edema (Trace lower extremity pitting edema bilaterally)
Respiratory: Wheeze (negative), Crackles (Bibasilar), Rhonchi (negative) and Stridor (negative)
GI: Soft, Distended (Abdominal obesity), Non Tender and Normal Bowel Sounds
Neurology: Tremors (negative) and Other (Sedated although following commands when sedation decreased)
Skin: Warm, Dry, Cyanosis (negative) and Jaundice (negative)
Labs/Micro/Reports
Lab Data
08/11/25 05:02
08/11/25 05:02
Laboratory Results
08/10/25 08/10/25 08/10/25
13:35 14:15 15:57
PT 13.9 17.0 H
INR 1.01 1.33
APTT 26.0 > 200 H*
pH 7.26 L
pCO2 41 H
pO2 229 H
HCO3 18.4 L
O2 Delivery Level
08/10/25 08/10/25 08/10/25
17:39 19:16 20:53
PT
INR
APTT
pH 7.44 7.43 7.44
pCO2 29 L 29 L 32
pO2 198 H 153 H 156 H
HCO3 19.7 L 19.2 L 21.7
O2 Delivery Level
08/10/25 08/11/25
23:51 05:02
PT
INR
APTT
pH 7.44 7.37
pCO2 34 39 H
pO2 167 H 102
HCO3 23.1 22.5
O2 Delivery Level Ac 18/500/5/40%
Microbiology
08/10/25 18:31 Endotracheal Gram Stain - Preliminary
08/10/25 17:11 Urine Legionella Urinary Antigen - Final
Negative for Legionella pneumophila Serogroup 1 antigen.
A negative result does not rule out the possiblity of
Legionella infection due to other serogroups or species of
Legionella. Clinical correlation is recommended.
08/10/25 17:11 Urine Streptococcus pneumoniae Antigen (M - Final
Negative for Streptococcus pneumoniae antigen.
A negative result does not exclude infection with
Streptococcus pneumoniae. Clinical correlation is
recommended.
[2025-08-11 08:20] LABS: Glucose - Point of Care 206 mg/dl (70-99)
[2025-08-11] MEDS: NSS (PRESERVATIVE FREE) 10 ML IV (08:32)
[2025-08-11] MEDS: PROTONIX IV 40 MG IV (08:32)
[2025-08-11] MEDS: MIRALAX 17 GRAMS TUBE (08:32)
[2025-08-11] MEDS: BRILINTA 90 MG PO ×2 (08:32→20:12)
[2025-08-11] MEDS: LOW STRENGTH ASPIRIN 81 MG PO (08:32)
[2025-08-11] MEDS: NSS 500 VEN SHEATH (08:33)
--- NOTE | 2025-08-11 08:37 | W.PN.CD ---
Today's Communication / Plan
-
wean pressors and vent
CT scan
transfer to ICU
Impression / Plan
-
PCP: Deidre Arevalo PA-C
45 year old woman with hypertension, hyperlipidemia, hyperglycemia, obesity, presenting with acute inferior STEMI s/p PCI with JACQUE to RCA.
ASA/ticag loaded. Multiple VF arrests during the case and intubated. RCA was thrombotic but successfully recanalized with aspiration and stenting. Residual prox LAD disease.
This morning remains intubated and sedated on low dose norepi.
Sinus on tele, warm and well perfused.
Plan:
# inferior STEMI
- cont. DAPT, stop integrillin now
- statin + additional agents for LDL goal <55
- wean pressors for goal CI>2
- start metop once off pressors >12 hours
- echo, additional GDMT as indicated
- Discuss complete revasc of LAD once extubated and out of shock. Has both prox LAD disease as well as disease after the large diagonal. PCIx2 may offer more complete initial revascularization than BOWERS given the mid-distal lesion (hard to see on
cath films obtained but likely a ostial LAD landing zone), though given young age and (likely) diabetes would still favor BOWERS (possibly robotic assisted) pending heart team discussion and patient preference.
# VFib
- none since revasc
- stop amio and monitor tele
# Respiratory failure
- transfer to ICU for vent management
- component of agitation preventing vent wean
- CT head and chest pending
# HTN
- currently on pressors
# Elevated glucose
# Obesity
- A1c pending
- favor GLP1ra as part of roasterman DM regimen
Physical Exam
Vital Signs/Labs
Vital Signs
Temp Pulse Resp BP Pulse Ox
37.4 C 80 14 152/105 99
08/11/25 06:00 08/11/25 06:00 08/11/25 06:00 08/10/25 13:30 08/11/25 06:00
08/10/25 08/11/25 08/12/25
06:59 06:59 06:59
Actual Weight 115 kg
08/11/25 05:02
08/11/25 05:02
PT 17.0 Sec (11.4-14.6) H 08/10/25 14:15
INR 1.33 08/10/25 14:15
APTT > 200 Sec (23.4-35.0) H* 08/10/25 14:15
Magnesium 2.1 mg/dl (1.6-2.3) 08/11/25 05:02
Triglycerides 151 mg/dl (10-149) H 08/11/25 05:02
LDL Cholesterol, Calc 103 mg/dl 08/11/25 05:02
VLDL Cholesterol, Calc 30 mg/dl (0-30) 08/11/25 05:02
HDL Cholesterol 29 mg/dl 08/11/25 05:02
08/10/25
15:57
Kdy-C-Mndhkunglqs Pept 28.3
LAB Results
08/10/25 08/10/25 08/10/25
13:35 14:15 15:57
Troponin I 0.018 0.490 H* D 56.900 H* D
08/10/25 08/11/25
23:51 06:21
Troponin I 93.000 H* D 75.400 H*
Physical Exam
Constitutional: Other (intubated and sedated)
Cardiovascular: Rhythm & rate is regular
warm and well perfused, cath site cdi
Data Reviewed
-
Date of Service: August 11, 2025
Medical Decision Making: Reviewed Test Results
EKG: Tracing Personally Visualized and interpreted
Medical Tests (PFT, Pathology etc): Image Personally Visualized and interpreted
Labs: Labs Reviewed by me
[2025-08-11 09:20] LABS: Glycohemoglobin (HgbA1c) 10.7 % (4.0-5.9)
--- NOTE | 2025-08-11 10:17 | PTCARENOTE ---
assumed care of pt from previous shift RN, sinus rhythm on tele, VSS, + doppler peripheral pulses, +1 edema to bilateral lower extremities. Left femoral isaias leveled and zeroed, bp 90/60's. Lungs diminished, #8 ETT/35cm at left lip, VENT SETTINGS:
A/C 35/500/18/+5, pox 100%. Hypoactive BS, OBT draining brown color. Noel draining concentrated appearing, yellow urine. Right femoral and left femoral venous sheaths maintained, PIV x2 flush easily. Dr. Little at bedside, placed order for pt to
move to medical ICU. Integrilin discontinued as ordered. PO meds administered via OGT. CT head and chest completed. Bedside report given to MEDICAL RECORD CLERKKeila.
[2025-08-11 10:39] LABS: Glucose - Point of Care 204 mg/dl (70-99)
--- NOTE | 2025-08-11 10:46 | CM ---
Reviewed chart. Telephone call to her insurance to check on co-pay for Brilinta, Generic Ticagrelor, Farxiga and Entresto. Brilinta co-pay would be $138.80 a month, the Ticagrelor (generic Brilinta is $50.00 for 90 days and $25.00 a month at [facility]. Farxiga co-pay is $204.55 for 30 days at [facility] and $182.81 at [facility]. Entresto co-pay is $593.03 a month.
--- NOTE | 2025-08-11 11:00 | PTCARENOTE ---
Rec'd pt from CVICU s/p CT of the Head and Chest. Rec'd pt via bed sedated on Diprivan at 45 mcg and Fentanyl at 125 mcg. Both infusing via RAC IV site. RASS is a -[address] Chacon is to wean Propophol and currently dose decreased
to 35 mcg. On arrival pt not opening eyes to verbal or tactile stimuli but did raise her arm up toward ETT. Pupils are sluggish at 2 mm. SALAS. + cough and gag. Skin is pale wm and dry. Respirs are intact on the vent. #8 ETT at the 25 cm karen L side
of the mouth. Pt with an oral airway in place as per report from CVICU pt had been biting on ETT. Vent settings AC 18, tv 500, peep 5. Fio2 40%. Currently not adding rate or volume. BS are sl decreased throughout. Suctioned for small amt of tannish
secretions. Monitor SR. + pulses. PT and DP pulses with the doppler. +1 LE edema. VS as documented. Rec'd pt on Levophed at 2 mcg via R fem venous sheath. Increased to 3 mcg as Bp's were running in the 80'/50s and barely MAP of 65. Will titrate as
needed per protocol. Pt had been on IV AMiodarone but dc'd on arrival to ICU per MD order- was infusing via L femoral venous sheath- IV KVO NSS now infusing at 30 ml/hr. Pt also with L femoral Arterial sheath. Zeroed and recalibrated. Waveform as
documented. Currently congruent with cuff BP. Sites wnl. Abd is round/obese with hypoactive BS. Orogastric salem in place at the 70 cm karen. Clamped as meds recently given via tube. Thermistor fang intact for cloudy yellow bloody tinged urine. Pt
on the Glycemic protocol - Insulin gtt infusing via RAC IV site. Pt turned and repositioned. Complete CHG bath given. Oral care given. Does have bloody secretions orally. Pts father in and updated. Bilat soft wrist restraints in place for pt safety.
[2025-08-11 11:43] LABS: Glucose - Point of Care 151 mg/dl (70-99)
--- NOTE | 2025-08-11 11:52 | PTCARENOTE ---
Propophol currently at 25 mcg. Pt opening eyes to verbal and tactile stimuli but just moving restlessly not following commands currently but SALAS. Levophed decreased to 2 mcg as MAP is 90. No other changes
[2025-08-11 12:42] LABS: Glucose - Point of Care 182 mg/dl (70-99)
[2025-08-11] MEDS: LASIX 20 MG IV (13:00)
--- NOTE | 2025-08-11 13:00 | PTCARENOTE ---
Placed on CPAP 5/PS 5 wean at 1250 and so far tolerating well. Drowsy but easily arousable and nodding and gesturing appropriately. Denies feeling short of breath. RR 18-20 amd TV 400-500. Sats 99%. Currently Propophol off since 1250 and Fentanyl at
75 mcg. Levophed at 1 mcg. Turned and repositioned at noon. NG clamped for now
--- NOTE | 2025-08-11 13:05 | PTCARENOTE ---
Lasix 20 mg IV given as ordered
[2025-08-11 13:50] LABS: Glucose - Point of Care 192 mg/dl (70-99)
--- NOTE | 2025-08-11 13:50 | PTCARENOTE ---
Fentanyl turned off as weaning continues. Dr. Chacon in and adjusted Vent settings at 1330 to Fio2 40%, PSV 5 cm on those settings sats are 98%. RR 18-20 TV 400's. ABG sent per protocol via L fem arterial sheath. Pt is wakeful and nodding and
gesturing appropriately.
[2025-08-11 14:00] LABS: B.E. -2.6 mmol/L; HCO3 21.7 mmol/L (21-28); O2 Saturation % 99.1 % (94-98); PCO2 35 mmHg (32-35); PO2 93 mmHg (83-108)
--- NOTE | 2025-08-11 14:20 | PTCARENOTE ---
Pt extubated to 6L nc-sats 92%. OG tube removed with extubation. Pt able to speak and is oriented and cooperative.
--- NOTE | 2025-08-11 14:28 | W.PN.UPDATE ---
Update Note
Progress Note Update
Patient doing well since morning rounds, tolerating SAT and now on a PST on CPAP 5/5. I then placed PEEP to 0 given concern for mild acute pulmonary edema with small pleural effusions seen. She still did well with VBTe in 650-700cc range, and
breathing at 14-18 range. Blood gas looks good with no e/o hypercapnia. Pt remains awake, alert, able to lift head off pillow and is in NAD. Decision made to extubate to nasal cannula, which happened successfully without incident. Nursing to do
bedside swallow, and if any issues then will consult TANKAGE GRINDER. Will also remove her bilateral femoral venous sheaths and left femoral arterial catheter. Continue ICU level of care.
[2025-08-11 14:58] LABS: Glucose - Point of Care 173 mg/dl (70-99)
--- NOTE | 2025-08-11 15:15 | PTCARENOTE ---
O2 at 4L nc with sats of 95%. Dr. Palacios updated and oK given to remove all femoral sheaths. Field Representative notified. No other changes. Pt states she is comfortable
[2025-08-11 16:02] LABS: Glucose - Point of Care 193 mg/dl (70-99)
[2025-08-11 16:13] LABS: ACT-LR - POC 110 Seconds (116-155)
[2025-08-11] MEDS: LANTUS 0.2 UNITS SC (16:41)
--- NOTE | 2025-08-11 16:46 | PTCARENOTE ---
16:30femoral lines RT and Left removed by wetlands conservation laborer nursing staff at 16:30. Patient should remain flat x 4 hours ; from 16:30 to 20:30
--- NOTE | 2025-08-11 16:50 | PTCARENOTE ---
Called to pull arterial and venous sheaths. ACT 110. RFV sheath pulled without difficulty. LFA & LFV sheath pulled without difficulty. Innoseal homeostasis pad used on LFA. Pressure held per protocol. Site WNL. Pt with positive doppler signal
B/L DP. See sheath removal intervention. B/L groin sites checked with pt's RN and doppler pulses confirmed prior to departure.
[2025-08-11 17:06] LABS: Glucose - Point of Care 201 mg/dl (70-99)
--- NOTE | 2025-08-11 17:11 | PTCARENOTE ---
- 15:00 assumed care. patient off Amiodarone, off Levophed; Extubated, currently on 5L of oxygen via nasal canula. Currently on Insulin drip per critical hyperglycemic protocol. 16:35 Lantus 20 unit administered. pt will remain on Insulin drip x 2
hours. AT 18:35 Will turn Insulin qtt off.
-Patient Awake and oriented x 3 . Pupils reactive to light, center. able to move b/l UE and LE
-Normal Sinus Rhythm 73 . BP: 114/74 MAP 87 via Right Forearm; Femoral A-line removed; pt off Amiodarone; off Levophed; pt denies chest pain
-SpO2 5L via nasal canula. lung diminished through. Denies SOB
-Abdomen soft non-tender; normal bowel sounds present x 4 quadrants
-Indwelling Noel draining cloudy yellow urine Monitoring I and O
-Peripheral Lines : RT and Left; Femoral lines RT and Left removed (see note); Areas covered by 4 x4 with Tegaderm. No sigh of bleeding, areas soft to touch
-pt remains call pelayo within reach
[2025-08-11] MEDS: LOVENOX 40 MG SC (17:30)
[2025-08-11] MEDS: TYLENOL 650 MG PO (17:34)
--- NOTE | 2025-08-11 17:46 | PTCARENOTE ---
Addendum entered by Luz Villatoro RN 08/11/25 18:48:
Insulin qtt off at 18:45
Original Note:
insulin qtt off
[2025-08-11 18:10] LABS: Glucose - Point of Care 160 mg/dl (70-99)
[2025-08-11] MEDS: NOVOLOG FLEXPEN-MODERATE RESISTANCE 1 UNITS SC (18:47)
[2025-08-11 18:54] LABS: Glucose - Point of Care 152 mg/dl (70-99)
[2025-08-11] MEDS: AUGMENTIN 875 MG/125 MG 1 TABLET PO (20:12)
--- NOTE | 2025-08-11 20:41 | PTCARENOTE ---
Handoff report received from off going RN. Dual RN bilateral pulse check completed. Pt's feet are cool to the touch. Palpable DP to the left leg and doppler pulse is present to the right DP. Patient is AAOx3 and able to make her needs known. Denies
CP, sob at this time. Plan of care for the shift reviewed with the patient.Sinus tachy on the monitor with HR 103. SpO2 at 96% on 3L/O2 nc. Temp 101.2 via temp sensing fang. Ice packs provided. ENTRY ENGINEER made aware. Plan for Ofirmev when Tylenol is due
again. Last PO Tylenol administered at 17:34. Room temperature adjusted. Diminished breath sounds. + BS. Abdomen is obese. Fang catheter is draining claire urine with sediments. PIV. Pt encouraged to lay flat until 2029. All needs are met at this
time. Call pelayo is within reach.
[2025-08-11] MEDS: OFIRMEV 100 IV (22:06)
[2025-08-11] MEDS: NOVOLOG FLEXPEN-MODERATE RESISTANCE 3 UNITS SC (23:34)
[2025-08-11 23:46] LABS: Glucose - Point of Care 228 mg/dl (70-99)
[2025-08-12] VITALS (26 sets, daily range): BP systolic 102–140; BP diastolic 62–98; BMI 43.9
--- NOTE | 2025-08-12 01:20 | PTCARENOTE ---
Patient reassessed. No verbalization of pain. Cooling blanket off. Pt's temp is now 99.9 F. Sinus tach. All needs remain within reach.
[2025-08-12 04:03] LABS: Hematocrit 36.8 % (37.0-47.0); Hemoglobin 11.7 g/dL (12.0-16.0); Mean Corp Hgb Conc. 31.8 g/dL (33.0-37.0); Mean Corpuscular Volume 89.5 fL (81.0-99.0); Nucleated Red Blood Cells % 0 %; Platelet Count 248 10^3/uL (130-400); Red Cell Dist. Width 13.1 % (11.5-14.5)
[2025-08-12] MEDS: NSS VEN SHEATH ×2 (04:11→09:38)
--- NOTE | 2025-08-12 04:12 | PTCARENOTE ---
Patient reassessed. VSS. NO changes from the previous assessment. Labs drawn and sent.
[2025-08-12 04:27] LABS: ALT (SGPT) 71 U/L (0-35); AST (SGOT) 176 U/L (14-36); Albumin 3.3 g/dl (3.5-5.0); Alkaline Phosphatase 85 U/L (38-126); Blood Urea Nitrogen 9 mg/dl (7-17); Calcium 8.4 mg/dl (8.4-10.2); Carbon Dioxide 24 mmol/L (22-30); Chloride 108 mmol/L (98-107); Estimated Creatinine Clearance > 125 ml/min; Glucose 174 mg/dl (70-99); Magnesium 2.0 mg/dl (1.6-2.3); Potassium 3.9 mmol/L (3.5-5.1); Sodium 137 mmol/L (135-145); Total Protein 6.7 g/dl (6.3-8.2); eGFR > 60.00
[2025-08-12] MEDS: NOVOLOG FLEXPEN-MODERATE RESISTANCE 3 UNITS SC ×2 (06:02→13:04)
[2025-08-12 06:15] LABS: Glucose - Point of Care 203 mg/dl (70-99)
--- NOTE | 2025-08-12 08:05 | W.PN.INTV ---
Today's Communication / Plan
Recommendations
Extubated yesterday and is breathing comfortably on room air
Keep SpO2 >94%
Diabetic diet
Antibiotics for bibasilar pneumonia (aspiration) x 5 days assuming she continues to clinically improve and remains afebrile for 48 hours prior to stopping antibiotics
Continue DAPT
Statin on hold for now given worsening transaminitis; trend LFTs
Amiodarone stopped given no recurrence of VT or NSVT since patient was revascularized
Bowel regimen
GDMT per cardiology
Patient is stable for downgrade out of ICU to IVU. This was discussed with Mandarin Speaking Nanny, Dr. Campos and Charge Preparation Technician, Dr. Wang, and both in agreement. No additional recommendations at this time. Quality Officer/Pulmonary service
will now sign off. Please reconsult if there are any additional questions/concerns, or if patient's respiratory status deteriorates.
Assessment
-
Assessment: 45-year-old morbidly obese female active tobacco smoker with a past medical history of hypertension and hypothyroidism who presents with left-sided chest pain that started within the hour prior to arrival while she was caring for her
mother. She was diaphoretic when her symptoms started so she came here to the hospital. Initial EKG showed ST elevation in the inferolateral leads with reciprocal ST depression in the zora-lateral leads. Initial pulse rate 91 + respiratory rate
20. Initial labs showed leukocytosis to 14.1, Hb 14, glucose 239, and initial troponin 0.018 which increased about 45 minutes later to 0.49. Cardiology consulted and she was emergently brought to the [facility]. Coronary angiography showed an LAD
80% lesion which was moderate�severely calcified as well as a 70% lesion in the mid LAD after the origin of the diagonal, with an acutely occluded, thrombotic 100 send lesion in the mid RCA. After the diagnostic portion she went into V-fib and was
defibrillated with methodist of NSR. Patient has started on eptifibatide and then patient went into VF again which was refractory with multiple defibrillation attempts needed in addition to ACLS/CPR. Amiodarone also given during this time.
After the fourth defibrillation, patient obtained ROSC and was found to be in normal sinus rhythm with complete heart block. Preparations were being made for a temporary pacemaker but then she regained AV synchrony so TVP attempts was canceled.
Patient was then intubated and sedated by anesthesia. CT surgery team was called to consider ECMO given her hemodynamic instability. Left common femoral artery access was obtained in the event that ECMO was needed. She was started on Levophed at
5 mcg/min. Patient then underwent aspiration thrombectomy of the RCA and then a JACQUE x1 was placed. Procedure ended and then patient transferred to the CVICU for further care with horse wrangler service consulted for additional
management/recommendations.
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
Impression:
#Inferior ST elevation [place] s/p LHC with suction aspiration thrombectomy of RCA + PCI of mid RCA lesion with JACQUE x 1 placed
#In-hospital cardiac arrest (VF arrest occurred during cardiac catheterization at the end of diagnostic portion and recurrent VF arrest during therapeutic portion)
#Ischemic cardiomyopathy/acute HFmrEF (EF: 45-50% on left ventriculography during LHC on 08/10/2025)
#Leukocytosis
#Multifocal pneumonia (CAP) likely due to aspiration during her cardiac arrest on 08/10/2025
#Hypokalemia - [K] levels now normalized
#Metabolic acidosis with borderline increased anion gap - acidosis now resolved
#DM type II c/b hyperglycemia requiring insulin gtt
#Transaminitis likely due to ischemia during cardiac arrest - LFTs improving
#Elevated troponin in the setting of STEMI with troponin rising to 56.9 in setting of s/p LHC
#Tobacco use disorder (carries an approximate 88-yijz-kywn history, currently smoking 2 PPD; started smoking as a teenager with average use of 1 PPD; quit for 9 years at one point)
#Hypertension
#History of hypothyroidism
Plan:
- Patient was extubated yesterday and has been breathing comfortably on room air, currently saturating 94% and denies SOB or chest pain
- She is s/p amiodarone drip after suffering recurrent V-fib arrest during coronary angiography
- Since patient was revascularized on 08/10, she has had no recurrence of her V-fib or NSVT. Per cardiology, amiodarone stopped. Monitor on telemetry
- Replete K>4, Mg>2
- Patient has no evidence for anoxic brain injury
- CT head checked yesterday morning which showed no acute intracranial abnormality. There was mild acute sinusitis
- Avoid fever, treating with tylenol as needed
- Maintain MAP >65
- She will need an ICD for secondary prevention prior to discharge, depending on her recovery during her hospitalization - defer this decision to EP
- Keep SpO2 >94%, using supplemental O2 as needed
- Continue aspiration precautions; keep HOB >30-45�
- prn nebulized bronchodilators - not currently bronchospastic
- Patient has leukocytosis and CXR shows a left perihilar patchy parenchymal opacity � given her cardiac arrest, she likely aspirated, which was confirmed on CT chest that showed bibasilar consolidative opacities (L>R) with small bilateral pleural
effusions
- Continue Unasyn for total of 5 days, assuming she continues to clinically improve and remains afebrile for 48 hours prior to stopping antibiotics
- Follow up sputum Cx (collected 08/10/2025 and shows NGTD)
- Urine antigens for Legionella + strep pneumonia both negative
- Trend WBC and monitor temperature curve
- Given her acute STEMI, would try to avoid a nicotine patch
- Continue DAPT with ASA + ticagrelor
- Echo performed on 08/10 shows mildly reduced LVEF at 45-50% with hypokinesis of the basal to apical inferior/inferoseptal valles with no significant valvular disease
- Cardiology on board and recommendations appreciated
- High intensity statin on hold given her transaminitis
- A1c: 10.7; LDL: 103
- Patient now started on Toprol-XL + Aldactone per cardiology
- Maintain euglycemia with goal BG 140-180; A1C 10.7; now weaned off insulin gtt as of yesterday; continue basal-bolus SQ insulin with lantus with ISS
- Trend H/H and transfuse if needed to keep Hb>8g/dL; keep plt>50k (given her s/p LHC status now on DAPT)
- No longer need stress ulcer ppx given she was extubated
- DVT ppx: LMWH
I updated the father, Nolberto, at bedside and answered all of his questions.
Patient is stable for downgrade out of ICU to IVU. This was discussed with Mandarin Speaking Nanny, Dr. Campos and Charge Preparation Technician, Dr. Wang, and both in agreement. No additional recommendations at this time. Quality Officer/Pulmonary service
will now sign off. Thank you for allowing us to be involved in the care of this patient. Please reconsult if there are any additional questions/concerns, or if patient's respiratory status deteriorates.
Total time spent today was 58 minutes for this encounter. Time includes reviewing laboratory test/imaging results, reviewing pertinent medical records, obtaining and reviewing medical history, performing an appropriate exam, ordering medications,
tests and procedures. Time also includes documentation of this encounter, coordinating patient care and communicating with other healthcare professionals. Total time does not include separately billed tests performed on this date of service.
Subjective Dataa
Subjective Data
Date of Service:
Date of Service: August 12, 2025
Chief Complaint: Quality Officer Follow Up
Subjective:
Patient was seen this morning. Extubated yesterday and is now on room air breathing comfortably. She was resting in chair no acute distress. Heart rate currently 103, BP 120/91 and she is saturating 94% on room air. She feels well, denies
shortness of breath with laying flat, denying chest pain and denies fevers or chills. She was febrile overnight with a Tmax of 101.2 �F.
Review of Systems
General: Other (Negative unless mentioned above)
Objective Data
Data Reviewed
Vital Signs / I&O / Oxygen:
Vital Signs
Temp Pulse Resp BP Pulse Ox
98.5 F 92 21 131/88 97
08/12/25 07:37 08/12/25 10:30 08/12/25 10:30 08/12/25 10:00 08/12/25 10:30
Intake and Output
08/11/25 08/12/25 08/13/25
06:59 06:59 06:59
Intake Total 2165.7 / 2165.7 1116.1 / 1116.1 240 / 240
Output Total 1580 / 1580 1140 / 1140 240 / 240
Balance 585.7 / 585.7 -23.9 / -23.9 0 / 0
SaO2 [CPAP/PSV] 98
SaO2 [A/C] 99
SaO2 97
Nasal Cannula flow liters per 2
minute
Physical Exam
General: Respiratory Distress (negative), Comfortable, Chills (negative) and Sweats (negative)
HEENT: Normocephalic, Anicteric and Other (Thick neck)
Cardiovascular: S1-S2 and Peripheral Edema (Trace lower extremity pitting edema bilaterally)
Respiratory: Wheeze (negative), Crackles (Bibasilar), Rhonchi (negative), Non-Labored Respirations and Stridor (negative)
GI: Soft, Distended (Abdominal obesity), Non Tender and Normal Bowel Sounds
Neurology: Awake, Alert, Oriented and Tremors (negative)
Skin: Warm, Dry, Cyanosis (negative) and Jaundice (negative)
Labs/Micro/Reports
Lab Data
08/12/25 03:51
08/12/25 03:51
Laboratory Results
08/11/25
13:48
pH 7.40
pCO2 35
pO2 93
HCO3 21.7
O2 Delivery Level
Microbiology
08/10/25 18:31 Endotracheal Respiratory Culture - Preliminary
Usual Respiratory Pauly
08/10/25 18:31 Endotracheal Gram Stain - Preliminary
08/10/25 17:11 Urine Legionella Urinary Antigen - Final
Negative for Legionella pneumophila Serogroup 1 antigen.
A negative result does not rule out the possiblity of
Legionella infection due to other serogroups or species of
Legionella. Clinical correlation is recommended.
08/10/25 17:11 Urine Streptococcus pneumoniae Antigen (M - Final
Negative for Streptococcus pneumoniae antigen.
A negative result does not exclude infection with
Streptococcus pneumoniae. Clinical correlation is
recommended.
[2025-08-12] MEDS: BRILINTA 90 MG PO ×2 (09:37→19:26)
[2025-08-12] MEDS: LOW STRENGTH ASPIRIN 81 MG PO (09:37)
[2025-08-12] MEDS: AUGMENTIN 875 MG/125 MG 1 TABLET PO ×2 (09:37→19:26)
[2025-08-12] MEDS: LANTUS 0.1 UNITS SC (09:37)
[2025-08-12] MEDS: MIRALAX TUBE (09:38)
[2025-08-12] MEDS: NOVOLOG FLEXPEN-MODERATE RESISTANCE 1 UNITS SC ×2 (09:39→17:56)
[2025-08-12 09:51] LABS: Glucose - Point of Care 174 mg/dl (70-99)
--- NOTE | 2025-08-12 10:04 | PTCARENOTE ---
.> [id number] assumed care; pt in bed . 2L via nasal cannula; denies chest pain, SOB
> Accu check before breakfast 172: Lantus 20 units and 1 Unit Novolog per moderate Sliding scale
> Transfer to chair with supervision
> OOB chair, call pelaoy within reach
--- NOTE | 2025-08-12 11:46 | W.PN.CD ---
Today's Communication / Plan
-
Continue DAPT and statin
Start GDMT
Impression / Plan
-
PCP: Deidre Arevalo PA-C
45 year old woman with hypertension, hyperlipidemia, hyperglycemia, obesity, presenting with acute inferior STEMI s/p PCI with JACQUE to RCA.
ASA/ticag loaded. Multiple VF arrests during the case and intubated. RCA was thrombotic but successfully recanalized with aspiration and stenting. Residual prox LAD disease. Now successfully extubated and off pressors.
Plan:
Inferior STEMI
- [place] 08/10/2025: 80% proximal LAD, 70% mid LAD, 60% mid OM, 100% mid RCA s/p PCI with JACQUE
- cont. DAPT with aspirin and ticagrelor
- statin + additional agents for LDL goal <55
- start metoprolol succinate 50 mg daily
- CTS/interventional cardiology to decide on PCI versus CABG for residual LAD disease
Ischemic cardiomyopathy
- TTE 08/10/2025: LVEF 45-50%, hypokinesis of the inferior/inferoseptal valles, no VHD
- GDMT:
- BB: Start metoprolol succinate 50 mg daily as above
- PAUL/ARB/ARNI: Case management to sanchez Entresto
- SGLT2 inhibitor: Case management to sanchez
- MRA: Start spironolactone 25 mg daily tomorrow if she tolerates metoprolol
- Appears euvolemic. No role for diuresis.
# VFib
- none since revasc
- Continue to hold amio and monitor tele
# Respiratory failure, resolved
- Extubated to nasal cannula on 08/11/2025
- ICU team following. Appreciate recommendations.
# HTN
- Start GDMT as above
# Diabetes
- A1c 10.7 on admission
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
- Diabetic team following. Appreciate recommendations.
Subjective: No chest pain, shortness of breath, or orthopnea.
Physical Exam
Vital Signs/Labs
Vital Signs
Temp Pulse Resp BP Pulse Ox
98.8 F 92 21 131/88 97
08/12/25 11:22 08/12/25 10:30 08/12/25 10:30 08/12/25 10:00 08/12/25 10:30
08/11/25 08/12/25 08/13/25
06:59 06:59 06:59
Actual Weight 253 lb 8.505 oz 255 lb 11.779 oz
08/12/25 03:51
08/12/25 03:51
PT 17.0 Sec (11.4-14.6) H 08/10/25 14:15
INR 1.33 08/10/25 14:15
APTT > 200 Sec (23.4-35.0) H* 08/10/25 14:15
Magnesium 2.0 mg/dl (1.6-2.3) 08/12/25 03:51
Triglycerides 151 mg/dl (10-149) H 08/11/25 05:02
LDL Cholesterol, Calc 103 mg/dl 08/11/25 05:02
VLDL Cholesterol, Calc 30 mg/dl (0-30) 08/11/25 05:02
HDL Cholesterol 29 mg/dl 08/11/25 05:02
08/10/25
15:57
Ymn-L-Fdesyuylojx Pept 28.3
LAB Results
08/10/25 08/10/25 08/10/25
13:35 14:15 15:57
Troponin I 0.018 0.490 H* D 56.900 H* D
08/10/25 08/11/25
23:51 06:21
Troponin I 93.000 H* D 75.400 H*
Physical Exam
Constitutional: No acute distress and Comfortable
Cardiovascular: Rhythm & rate is regular and Pedal edema present (Trace, bilateral)
Respiratory: Respiratory effort normal and Crackles Present (bilateral bases)
Neuro/Psych: AO x 3
Other: Cath Site (Cath site soft without erythema or induration)
Data Reviewed
-
Date of Service: August 12, 2025
Medical Decision Making: Reviewed Test Results, Test Interpretation and Review of Case with other Provider
EKG: Tracing Personally Visualized and interpreted
Echo: Report Reviewed by me
X-Ray/CT/US/MRI/NUC/PET: Image Personally Visualized and interpreted
Labs: Labs Reviewed by me
[2025-08-12 12:39] LABS: Glucose - Point of Care 231 mg/dl (70-99)
[2025-08-12] MEDS: TOPROL XL 50 MG PO (13:08)
[2025-08-12 14:10] LABS: Glycohemoglobin (HgbA1c) 10.6 % (4.0-5.9)
--- NOTE | 2025-08-12 16:29 | CONSULT.CT ---
Consultation
-
Date/Time Consultation Requested: 08/12/25 1600
Date/Time Consultation Performed: 08/12/25 1700
Requesting Provider: Dr. Carlton Campos
Performing Provider: MIRNA Borges for Dr. Celestine Park
Reason for Consultation: CABG Evaluation
Patient History
Physicians
Family Physician: Deidre Arevalo PA-C
Outpatient Informaticist: None
Inpatient Informaticist: [facility]
History of Present Illness
Ms. Afshan Del Cid is a 45-year-old female with a known PMHx of hypertension, hypothyroidism, and tobacco misuse who presented to [facility] on 08/10/25 with complaints of left-sided chest pain for 1 hour and diaphoresis. At the time onset of symptoms, she
reported she was caring for her mother by providing wound care and assisting with ADLs. Upon arrival she ruled in with an acute inferior STEMI with ST elevation in inferior lateral leads with reciprocal ST depression in the anterior lateral leads.
Cardiology was consulted and she was taken for emergent left heart cath. Left heart cath revealed 80% proximal LAD, 70% mid LAD, 60% mid OM, and 100% mid RCA disease status post PCI with JACQUE. During initial diagnostics, patient had a V-fib arrest
and was defibrillated with ROSC. She was administered Integrilin and then went into V-fib which was refractory to multiple defibrillation attempts needing further ACLS/CPR. Following fourth defibrillation she obtained ROSC and was found to be in
sinus rhythm with complete heart block. A transvenous pacemaker was considered until she regained consistent intrinsic rhythm. She was intubated and sedated at that time. Cardiothoracic surgery was present for considerations of ECMO due to
hemodynamic instability but was unwarranted.
Patient has been medically managed within the intensive care unit. On 08/12/2025, patient was extubated and initiated on antibiotics for concern of bibasilar aspiration pneumonia. She was initiated on DAPT (Brillinta & ASA) for her JACQUE to RCA and
further GDMT per the cardiology team. Most recent TTE on 08/10/2025 reported LVEF of 45 to 50%, hypokinesis of inferior/inferior septal valles with no valvular heart disease leading to new diagnosis of ICM. Diabetic nurse practitioner was consulted
for recommendations due to new diagnoses of diabetes with hemoglobin A1c of 10.7% on admission.
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 She denies any prior cardiopulmonary symptoms while she was exerting herself. She reports
a family history significant of CAD in which her father has had multiple cardiac stents since the age of 40, he is still living. She is completely independent with her ADLs and does have a primary care provider that she sees but is retiring soon.
She reports of history of tobacco misuse starting as a teenager. She refrained from smoking for 5 years but has been smoking 2 packs/day over the last 2 years.
Past Medical History
Past Medical History: HTN
Past Surgical History
Past Surgical History: Other
L knee Arthroscopy
Family History
Mother: Still Living
Father: Still Living
Family Medical History: Early CAD
Social History
Alcohol: None
Drug: None
Tobacco: Smoker
Living: With Family
Employment: Employed
Allergies
Allergy/AdvReac Type Severity Reaction Status Date / Time
No Known Allergies Allergy Verified 08/10/25 13:17
Home Medications
�Medication �Instructions �Recorded �Confirmed �Type
No Meds [No Current Medications] 08/10/25 08/10/25 History
Review of Systems
-
History Source: Patient
General: Reports No Symptoms
HEENT: Reports No Symptoms
Respiratory: Reports Cough
Cardiac: Reports Edema
Abdomen/GI: Reports No Symptoms
: Reports No Symptoms
Musculoskeletal: Reports Joint Pain (L shoulder pain)
Skin: Reports No Symptoms
Neurological: Reports No Symptoms
Physical Exam
Vital Signs
Temp 98.9 F 08/12/25 15:37
Temp route: Oral 08/12/25 15:37
Pulse 104 08/12/25 13:08
Rhythm: Atrial fibrillation 08/12/25 08:00
With- First Degree Heart Block 08/11/25 04:00
Resp Rate 21 08/12/25 10:30
Blood pressure 138/97 08/12/25 13:08
Blood pressure extremity used: Right forearm 08/11/25 12:00
Position: Lying 08/11/25 15:54
MAP (cuff-Kerry Monitor) 101 08/12/25 10:00
SaO2 97 08/12/25 10:30
Nasal Cannula flow liters per minute 2 08/12/25 08:00
Oxygen Mode of Delivery Ventilator 08/11/25 12:00
Other oxygen comment AC 18, tv 500, peep 5 08/11/25 10:30
% Oxygen delivered 40 08/11/25 12:00
Can the patient verbally communicate their pain? Yes 08/12/25 08:00
Pain scale ratin 08/12/25 08:00
Arterial Systolic Pressure 135 08/11/25 16:12
Arterial Diastolic Pressure 68 08/11/25 16:12
MAP (L-Lgir-Vboanwt Monitor) 91 08/11/25 16:12
Actual Weight 116 kg 08/12/25 06:00
Body Mass Index (BMI) 43.9 08/12/25 06:00
etC02 value 30 08/11/25 08:45
Labs
08/12/25 03:51
08/12/25 03:51
PT 17.0 Sec (11.4-14.6) H 08/10/25 14:15
APTT > 200 Sec (23.4-35.0) H* 08/10/25 14:15
Hemoglobin A1c 10.6 % (4.0-5.9) H 08/12/25 03:51
Troponin I 75.400 ng/ml H* 08/11/25 06:21
Uno-D-Khftkrhnwpm Pept 28.3 pg/ml 08/10/25 15:57
Arterial Blood Gases
pH 7.40 (7.35-7.45) 08/11/25 13:48
pCO2 35 mmHg (32-35) 08/11/25 13:48
pO2 93 mmHg (83-108) 08/11/25 13:48
HCO3 21.7 mmol/L (21-28) 08/11/25 13:48
Base Excess -2.6 mmol/L 08/11/25 13:48
ABG O2 Sat (Measured) 99.1 % (94-98) H 08/11/25 13:48
Sodium 133 mMOL/L (136-145) L 08/10/25 15:57
Potassium 3.6 mMOL/L (3.5-5.1) 08/10/25 23:51
O2 Delivery Level 08/11/25 13:48
Urinalysis
Urine Color Yellow 08/10/25 17:11
Urine Clarity Clear (Clear) 08/10/25 17:11
Urine pH 6.0 (5.0-9.0) 08/10/25 17:11
Ur Specific [place] 1.010 (<1.030) 08/10/25 17:11
Urine Ketones 3+ (Negative) A 08/10/25 17:11
Ur Occult Blood Reflex 4+ (Negative) A 08/10/25 17:11
Urine Bilirubin Negative (Negative) 08/10/25 17:11
Leukocyte Esterase Rfl Negative (Negative) 08/10/25 17:11
Urine RBC 21-25 /HPF (0-2) A 08/10/25 17:11
Urine WBC (Reflex) 0-2 /HPF (0-5) 08/10/25 17:11
Ur Squamous Epith Cells 0-2 /LPF (Few) 08/10/25 17:11
Urine Bacteria (Reflex) Few (Negative) A 08/10/25 17:11
Urine Glucose 4+ (Negative) A 08/10/25 17:11
Urine Albumin (Reflex) 2+ (Neg - Trace) A 08/10/25 17:11
Exam
General: No Apparent Distress
HEENT: Normocephalic, Moist Mucous Membranes, PERRLA and EOMI
Respiratory: Clear
Cardiac: S1/S2 and Regular Rhythm
GI: Soft, Non Tender, Non Distended and Normal Bowel Sounds
Skin: Warm and Dry
Neuro: AO x 3 and No Motor Deficits
Extremities: Pulses (+1 DP/Radial B/L)
Psych: Calm
Assessment / Plan
-
#Coronary Artery Disease with STEMI
#Ischemic Cardiomyopathy
#Cardiac Arrest
- LHC (08/10/25) 80% proximal LAD, 70% mid LAD, 60% mid OM, and 100% mid RCA disease status post PCI with JACQUE
- on DAPT (Brillinta/ASA)
- Trop peak to 93 on 08/10/25.
- TTE (08/10/25) LVEF 45-50%, hypokinesis of inferior/inferoseptal valles, no VHD
- con't GDMT per Cardiology
- VF arrest (08/20/25), no further VF since revascularization
- Amiodarone on hold secondary to transaminitis
- Patient's case will be discussed with the attending physician. Further details regarding surgical intervention will be determined after attending physicians full examination.
- Routine preoperative cardiothoracic surgery will be initiated, including:
- Cerebrovascular ultrasound
- CT chest
- Bedside PFTs with spirometry
- B/L vein mapping
- STS risk stratification score will be calculated after preoperative testing is complete.
- Continue management as directed by primary team.
- If surgical intervention determined within current admission, would need to hold the following current medications:
- Platelet Inhibitors (Brilinta)
#Type 2 DM
- New diagnosis, Hgb A1C 10.6%
- Diabetic DIRECTOR MACHINE consulted
- On Insulin gtt
Data Reviewed
-
EKG: Report Reviewed by me
Purler: Report Reviewed by me
Echo: Report Reviewed by me
[2025-08-12 17:47] LABS: Glucose - Point of Care 168 mg/dl (70-99)
[2025-08-12] MEDS: LOVENOX 40 MG SC (17:56)
[2025-08-12] MEDS: TYLENOL 650 MG PO (19:29)
--- NOTE | 2025-08-12 21:05 | PTCARENOTE ---
Patient received in bed. AAOx3 and able to make her needs known. Plan of care for the shift reviewed with the patient. NSR to sinus tachy on the monitor with activity. Patient sat at the side of the bed, and we ambulated to the bathroom. Gait was
steady. Denies CP or sob with activity. CHG wipes provided. Tylenol administered for Temp of 100.9. Call pelayo and personal belongings are within reach.
[2025-08-12] MEDS: LANTUS 0.2 UNITS SC (21:33)
[2025-08-12 21:46] LABS: Glucose - Point of Care 205 mg/dl (70-99)
[2025-08-13] VITALS (11 sets, daily range): BP systolic 98–145; BP diastolic 77–92; BMI 43.1
[2025-08-13 04:46] LABS: Hematocrit 35.6 % (37.0-47.0); Hemoglobin 11.4 g/dL (12.0-16.0); Mean Corp Hgb Conc. 32.0 g/dL (33.0-37.0); Mean Corpuscular Volume 91.8 fL (81.0-99.0); Nucleated Red Blood Cells % 0 %; Platelet Count 253 10^3/uL (130-400); Red Cell Dist. Width 12.8 % (11.5-14.5)
[2025-08-13 05:00] LABS: ALT (SGPT) 51 U/L (0-35); AST (SGOT) 77 U/L (14-36); Albumin 3.5 g/dl (3.5-5.0); Alkaline Phosphatase 84 U/L (38-126); Blood Urea Nitrogen 6 mg/dl (7-17); Calcium 8.5 mg/dl (8.4-10.2); Carbon Dioxide 26 mmol/L (22-30); Chloride 105 mmol/L (98-107); Estimated Creatinine Clearance > 125 ml/min; Glucose 159 mg/dl (70-99); Magnesium 1.9 mg/dl (1.6-2.3); Potassium 3.8 mmol/L (3.5-5.1); Sodium 134 mmol/L (135-145); Total Protein 7.1 g/dl (6.3-8.2); eGFR > 60.00
[2025-08-13] MEDS: NOVOLOG FLEXPEN-MODERATE RESISTANCE 1 UNITS SC ×2 (07:53→16:21)
[2025-08-13] MEDS: LOW STRENGTH ASPIRIN 81 MG PO (07:55)
[2025-08-13] MEDS: AUGMENTIN 875 MG/125 MG 1 TABLET PO ×2 (07:55→20:47)
[2025-08-13] MEDS: TOPROL XL 50 MG PO (07:55)
[2025-08-13] MEDS: BRILINTA 90 MG PO ×2 (07:55→20:47)
[2025-08-13] MEDS: ALDACTONE 25 MG PO (07:55)
[2025-08-13] MEDS: MIRALAX 17 GRAMS TUBE (07:56)
[2025-08-13 08:03] LABS: Glucose - Point of Care 167 mg/dl (70-99)
--- NOTE | 2025-08-13 09:38 | PTCARENOTE ---
Received pt awake and alert.Speech is appropriate.Denies pain.+SALAS.ST noted.Denies chest discomfort.Decreased breath sounds with bibasilar crackles noted.POX 95% on RA.Appetite fair.No BM.Noel draining yellow urine.BL groin sites intact with
dressing.No drainage noted.Plan of care discussed.
[2025-08-13] MEDS: DIOVAN 80 MG PO (12:03)
[2025-08-13] MEDS: NOVOLOG FLEXPEN-MODERATE RESISTANCE 3 UNITS SC (12:11)
--- NOTE | 2025-08-13 12:15 | PTCARENOTE ---
Pt assessed.No change in assessment noted.CT chest completed.Noel discontinued as ordered.Pt ambulating in room.Gait steady.
[2025-08-13 12:19] LABS: Glucose - Point of Care 205 mg/dl (70-99)
--- NOTE | 2025-08-13 16:26 | PTCARENOTE ---
Pt assessed.No change in assessment noted.
[2025-08-13 16:30] LABS: Glucose - Point of Care 195 mg/dl (70-99)
--- NOTE | 2025-08-13 16:36 | W.PN.CD ---
Today's Communication / Plan
-
Uptitrate GDMT. Keep an eye on dizziness.
Plan for discharge tomorrow with cardiology and CT surgery follow-up
Impression / Plan
-
PCP: Deidre Arevalo PA-C
45 year old woman with hypertension, hyperlipidemia, hyperglycemia, obesity, presenting with acute inferior STEMI s/p PCI with JACQUE to RCA. ASA/ticag loaded. Multiple VF arrests during the case and intubated. RCA was thrombotic but successfully
recanalized with aspiration and stenting. Residual prox LAD disease. Now successfully extubated and off pressors.
Inferior STEMI
- [facility] 08/10/2025: 80% proximal LAD, 70% mid LAD, 60% mid OM, 100% mid RCA s/p PCI with JACQUE
- cont. DAPT with aspirin and ticagrelor
- statin + additional agents for LDL goal <55
- continue metoprolol succinate 50 mg daily (started 08/12)
- Will see CTS outpatient to discuss LAD revasc
Ischemic cardiomyopathy
- [facility] 08/10/2025: LVEF 45-50%, hypokinesis of the inferior/inferoseptal valles, no VHD
- GDMT:
- BB: metoprolol succinate 50 mg daily as above
- PAUL/ARB/ARNI: Entresto cost prohibitive. Continue valsartan 80 mg daily (started 08/13)
- SGLT2 inhibitor: Cost prohibitive
- MRA: Continue spironolactone 25 mg daily (started 08/13)
- Appears euvolemic. No role for diuresis.
# VFib
- none since revasc
- Continue to hold amio and monitor tele
# Respiratory failure, resolved
- Extubated to nasal cannula on 08/11/2025
- ICU team following. Appreciate recommendations.
# HTN
- GDMT as above
# Diabetes
- A1c 10.7 on admission
- favor GLP1ra as part of correction DM regimen
- Diabetic team following. Appreciate recommendations.
Subjective: No chest pain, shortness of breath, or orthopnea. Some dizziness with ambulation to the bathroom.
Physical Exam
Vital Signs/Labs
Vital Signs
Temp Pulse Resp BP Pulse Ox
99.3 F 90 32 112/77 95
08/13/25 08:00 08/13/25 16:21 08/13/25 10:30 08/13/25 16:21 08/13/25 08:00
08/12/25 08/13/25 08/14/25
06:59 06:59 06:59
Actual Weight 255 lb 11.779 oz 250 lb 10.649 oz
08/13/25 04:37
08/13/25 04:37
PT 17.0 Sec (11.4-14.6) H 08/10/25 14:15
INR 1.33 08/10/25 14:15
APTT > 200 Sec (23.4-35.0) H* 08/10/25 14:15
Magnesium 1.9 mg/dl (1.6-2.3) 08/13/25 04:37
Triglycerides 151 mg/dl (10-149) H 08/11/25 05:02
LDL Cholesterol, Calc 103 mg/dl 08/11/25 05:02
VLDL Cholesterol, Calc 30 mg/dl (0-30) 08/11/25 05:02
HDL Cholesterol 29 mg/dl 08/11/25 05:02
08/10/25
15:57
Hka-Q-Msdwmtvqqpw Pept 28.3
LAB Results
08/10/25 08/11/25
23:51 06:21
Troponin I 93.000 H* D 75.400 H*
Physical Exam
Constitutional: No acute distress and Comfortable
Cardiovascular: Rhythm & rate is regular, Pedal edema is absent, S1S2 is normal and Murmur/rub/gallop absent
Respiratory: Respiratory effort normal and Lungs clear to auscul.
Neuro/Psych: AO x 3
Data Reviewed
-
Date of Service: August 13, 2025
Medical Decision Making: Reviewed Test Results, Test Interpretation and Review of Case with other Provider
EKG: Tracing Personally Visualized and interpreted
Echo: Report Reviewed by me
Labs: Labs Reviewed by me
[2025-08-13] MEDS: LOVENOX 40 MG SC (17:51)
--- NOTE | 2025-08-13 21:00 | PTCARENOTE ---
Report received from previous shift RN [id number]. Pt in bed, AAO3, no complaints offered. Oc moist productive cough reported by pt, denies SOB/ESPINO, lung sounds are decreased throughout, pox 95-98% on room air. Telemetry rhythm reveals SR, HR 80-90's,
trace lower extr edema noted, palpable peripheral pulses present. +BS, abdomen soft obese nontender, pt denies nausea, reports fair appetite. Pt states she has not had a bm this admission, + flatus, denies discomfort. OOB self in room, voiding in
bathroom with no reported issue. Skin intact. Int's flushed and patent, capped. Call pelayo within reach, safe environment maintained. IVU orders noted. Will monitor closely.
[2025-08-13 22:16] LABS: Glucose - Point of Care 169 mg/dl (70-99)
[2025-08-13] MEDS: LANTUS 0.2 UNITS SC (22:20)
--- NOTE | 2025-08-14 00:18 | PTCARENOTE ---
No change in pt assessment. Pt awake in room, states she never sleeps for long periods of time throughout the nights. OOB to void ad brina. No complaints offered. Will monitor.
[2025-08-14 04:01] VITALS: BP 154/97
[2025-08-14 05:51] VITALS: BMI 42.9
[2025-08-14 07:47] VITALS: BP 114/83
[2025-08-14 07:50] LABS: Glucose - Point of Care 149 mg/dl (70-99)
--- NOTE | 2025-08-14 07:56 | W.PN.CD ---
Today's Communication / Plan
-
stable for discharge on current regimen with CT surgery and cardiology follow up
Impression / Plan
-
PCP: Deidre Arevalo PA-C
45 year old woman with hypertension, hyperlipidemia, hyperglycemia, obesity, presenting with acute inferior STEMI s/p PCI with JACQUE to RCA. ASA/ticag loaded. Multiple VF arrests during the case and intubated. RCA was thrombotic but successfully
recanalized with aspiration and stenting. Residual prox LAD disease. Now stable on GDMT pending discharge with plan for outpatient surgical complete revascularization.
Inferior STEMI
- [facility] 08/10/2025: 80% proximal LAD, 70% mid LAD, 60% mid OM, 100% mid RCA s/p PCI with JACQUE
- cont. DAPT with aspirin and ticagrelor
- statin + additional agents for LDL goal <55
- continue metoprolol succinate 50 mg daily (started 08/12)
- Will see CTS outpatient to discuss LAD revasc, plan for mid-CAB vs. traditional CABG
Ischemic cardiomyopathy
- [facility] 08/10/2025: LVEF 45-50%, hypokinesis of the inferior/inferoseptal valles, no VHD
- GDMT:
- BB: metoprolol succinate 50 mg daily as above
- PAUL/ARB/ARNI: Entresto cost prohibitive. Continue valsartan 80 mg daily (started 08/13)
- SGLT2 inhibitor: Cost prohibitive
- MRA: Continue spironolactone 25 mg daily (started 08/13)
- Appears euvolemic. No role for diuresis.
# VFib
- none since revasc
- Continue to hold amio and monitor tele
# Respiratory failure, resolved
- Extubated to nasal cannula on 08/11/2025
# HTN
- GDMT as above
# Diabetes
- A1c 10.7 on admission
- favor GLP1ra as part of usp DM regimen
- Diabetic team following. Appreciate recommendations.
Subjective: No chest pain, shortness of breath, or orthopnea. Some dizziness with ambulation to the bathroom. Tele with sinus rhythm, PVCs.
Physical Exam
Vital Signs/Labs
Vital Signs
Temp Pulse Resp BP Pulse Ox
36.6 C 86 32 154/97 98
08/14/25 04:00 08/14/25 04:01 08/13/25 10:30 08/14/25 04:01 08/13/25 20:00
08/13/25 08/14/25 08/15/25
06:59 06:59 06:59
Actual Weight 113.7 kg 113.4 kg
08/13/25 04:37
08/13/25 04:37
PT 17.0 Sec (11.4-14.6) H 08/10/25 14:15
INR 1.33 08/10/25 14:15
APTT > 200 Sec (23.4-35.0) H* 08/10/25 14:15
Magnesium 1.9 mg/dl (1.6-2.3) 08/13/25 04:37
Triglycerides 151 mg/dl (10-149) H 08/11/25 05:02
LDL Cholesterol, Calc 103 mg/dl 08/11/25 05:02
VLDL Cholesterol, Calc 30 mg/dl (0-30) 08/11/25 05:02
HDL Cholesterol 29 mg/dl 08/11/25 05:02
08/10/25
15:57
Jyh-Q-Msekekovfnv Pept 28.3
Physical Exam
Constitutional: Comfortable
Cardiovascular: Rhythm & rate is regular
Respiratory: Respiratory effort normal
Neuro/Psych: AO x 3
Data Reviewed
-
Date of Service: August 14, 2025
Medical Decision Making: Reviewed Test Results
EKG: Tracing Personally Visualized and interpreted
Echo: Tracing Personally Visualized and interpreted
Medical Tests (PFT, Pathology etc): Image Personally Visualized and interpreted
Labs: Labs Reviewed by me
--- NOTE | 2025-08-14 08:00 | PTCARENOTE ---
Assumed care of patient. Pt rec'd A&Ox3...pleasant...chest pain free. Assessment completed. Took po meds w/o issue. Breakfast ordered. VS completed. For carotid ultrasound this am. Possible d/c home today w/ tentative CABG in 3 weeks. Call
pelayo within reach.
[2025-08-14] MEDS: NOVOLOG FLEXPEN-MODERATE RESISTANCE SC (08:07)
--- NOTE | 2025-08-14 08:13 | PN.DE.MGMTRT ---
Insulin Management
- -
08/14/2025: Diabetes Management Follow up
45 year old woman with PMH: HTN, HLD, hypothyroidism, Tobacco use T2DM and Morbid Obesity, presenting with left-sided chest pain that started within the hour prior to arrival while she was caring for her mother. She was noted for acute inferior
STEMI s/p PCI with JACQUE to RCA.
Patient had multiple VF arrests during the case requiring intubation.
Was not taking any diabetes medications prior to admission. A1C is 10.7%, Cr 0.4, eGFR >60
Glucose on admission was 239. Patient was initiated on Critical care glycemic protocol, transitioned off on 08/11 to SQ insulin
Pt awake, alert, oriented, sitting up in chair, offers no complaints, able to discuss diabetes care plan
08/13 Glucose range was 167 to 205, received 1-3 units of corrective insulin.
Will start AC NovoLog 5 units and Metformin 500mg BID. Change corrective to low coverage with meals.
Receiving Lantus 20 units @ HS, fasting glucose 149, will cont current dose 20 units.
Pt will be seen today by Diabetes Nurse Educator for monitor and insulin instructions.
Meds at discharge: Lantus 20 units @ HS, NovoLog 5 units and Metformin 500mg BID.
Discussed with Nurse, will cont to follow
Diabetes History
- -
Type of Diabetes: 2 requiring insulin
Pre-Admission Diabetes Regimen
Lab Results
Hemoglobin A1c 10.6 % (4.0-5.9) H 08/12/25 03:51
Insulin Pump Settings
IP Diabetes Regimen
08/13/25 08/13/25 08/13/25
12:08 16:19 22:05
POC Glucose 205 H 195 H 169 H
08/14/25
07:39
POC Glucose 149 H
Patient Education
[2025-08-14] MEDS: MIRALAX 17 GRAMS TUBE (08:14)
[2025-08-14] MEDS: DIOVAN 80 MG PO (08:15)
[2025-08-14] MEDS: TOPROL XL 50 MG PO (08:15)
[2025-08-14] MEDS: BRILINTA 90 MG PO (08:15)
[2025-08-14] MEDS: AUGMENTIN 875 MG/125 MG 1 TABLET PO (08:15)
[2025-08-14] MEDS: ALDACTONE 25 MG PO (08:16)
[2025-08-14] MEDS: LOW STRENGTH ASPIRIN 81 MG PO (08:16)
--- NOTE | 2025-08-14 08:21 | W.PN.UPDATE ---
Update Note
Progress Note Update
Patient will follow up with Dr. Hoover (CT Surgery) in clinic to discuss CABG on 09/13/25 @ 11:30am. Appointment listed in discharge document.
[2025-08-14] MEDS: GLUCOPHAGE 500 MG PO (10:26)
[2025-08-14] MEDS: NOVOLOG FLEXPEN 5 UNITS SC ×2 (10:26→11:39)
--- NOTE | 2025-08-14 10:45 | PTCARENOTE ---
Carotid u/s and bedside PFT's completed. operations and maintenance manager at bedside. Dietary consult placed per cook chef.
[2025-08-14 11:38] VITALS: BP 120/74
[2025-08-14] MEDS: NOVOLOG FLEXPEN-LOW RESISTANCE 2 UNITS SC (11:40)
[2025-08-14 11:41] LABS: Glucose - Point of Care 228 mg/dl (70-99)
--- NOTE | 2025-08-14 12:59 | PTCARENOTE ---
Addendum entered by Penny Soliz RN 08/14/25 13:04:
Patient is scheduled for CABG on 09/13/2025, discussed the importance of lowering BS #'s prior to surgery to reduce rishk of complications. She verbalized understanding.
Original Note:
08/14/2025 DIABETES EDUCATION CONSULT
I met with patient to review diabetes management. She is newly diagnosed with Type 2 diabetes with an HbA1c of 10.7% She states multiple family members also have Type 2 DM.
I educated on physiology of T2D, organ damage, managing with medications, monitoring BG, nutrition, activity, sleep and managing stress. I reinforced signs of hyperglycemia, hypoglycemia and hypoglycemia protocol; BS parameters and recommended HbA1c
goals, glucometer and CGM instructions, glucose tracker, medic alert bracelet and outpatient DSME program. Written material provided.
I provided patient with a Switchfly glucometer sample kit. She declined demonstration stating that she is familiar with monitoring with finger stick as she has assisted her father with this.
I educated and demonstrated on insulin injection technique, timing, and storage. Discussed long and short acting insulin; onset/peak/duration, and encouraged her to administer self injections with RN supervision while admitted. Discussed normal
target glucose ranges and a monitoring schedule 15 minutes before each meal when prescribed Novolog, and before bedtime.
She states she eats breakfast, then picks at food throughout the remainder of the day. 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
Encouraged patient to follow up with PCP for post d/c appointment and to monitor medication and blood glucose levels. She sees providers at [facility], her current provider (Dr. Francis) will retire soon and if he is not available
she will see another provider at that practice. Provided list of endocrinologists if desired, to contact insurance company to verify in network status. Requested a prescription for blood sugar testing supplies to be sent to his pharmacy on record.
Patient verbalized understanding.
--- NOTE | 2025-08-14 13:22 | W.DS.TRANS ---
DC Summary - Mental Health Program Manager
-
Discharge Instructions:
Discharge Diagnosis/Procedures STEMI
Thrombectomy and angioplasty with stent to RCA x
1
Ischemic cardiomyopathy
Type 2 diabetes, new diagnosis
Diet Low Cholesterol,Diabetic, Carb Controlled,2 Gram
Sodium
Activity No strenuous activity
Additional Activity See attached instructions.
Driving Restrictions As prior to admission
Bathing Restrictions None
Blood Work Fasting CMP in one week. See attached lab slip.
Other Services Cardiac Rehab
Specialty Instructions Weigh Daily
Instructions:
Stand-Alone Forms: DC Instructions- Cath/EP Lab
Changes to Home Medications: Yes
Discharge Medications:
DC Medications w/original date entered in [facility]
acetaminophen 325 mg tablet 650 mg (2 x 325 mg) PO Q4HPRN PRN mild pain #30 tabs 08/14/25
amoxicillin 875 mg-potassium clavulanate 125 mg tablet 1 tab PO Q12 #2 tabs 08/14/25
aspirin 81 mg chewable tablet 81 mg PO DAILY #30 tabs 08/14/25
blood sugar diagnostic (Contour Next Test Strips) #100 ea 08/14/25
insulin aspart U-100 100 unit/mL (3 mL) subcutaneous pen (Novolog FlexPen U-100 Insulin aspart) 5 unit (0.05 mL) SC AC Diabetes #5 ea 08/14/25
insulin glargine 100 unit/mL (3 mL) subcutaneous pen (Lantus Solostar U-100 Insulin) 20 unit (0.2 mL) SC HS Diabetes #5 ea 08/14/25
lancets (Microlet Lancet) #100 ea 08/14/25
metformin 500 mg tablet 500 mg PO BID@0800,1700 Diabetes #60 tabs 08/14/25
metoprolol succinate 50 mg tablet,extended release 24 hr 50 mg PO DAILY #30 tabs 08/14/25
pen needle, diabetic 32 gauge x 5/32' (Matilde 2nd Gen Pen Needle) #200 ea 08/14/25
rosuvastatin 20 mg tablet 40 mg (2 x 20 mg) PO QPM #30 tabs 08/14/25
spironolactone 25 mg tablet 25 mg PO DAILY #30 tabs 08/14/25
ticagrelor 90 mg tablet 90 mg PO BID #60 tabs 08/14/25
valsartan 80 mg tablet 80 mg PO DAILY #30 tabs 08/14/25
Home Medication Changes
All medications are new
Pending Results: No
--- NOTE | 2025-08-14 14:33 | PN.CDI ---
CDI
- -
CDI:
Physician Documentation Request
Admit Date: 08/10/25 15:42
Dear Doctor/RETAIL GENERAL MANAGER,
Please review the following and provide your response in the progress notes.
Current documentation includes a diagnosis of hypotension.
Clinical Indicators:
Pt admitted with STEMI
Documented per H&P, ' #Elevated Blood pressure - was receiving pressor support during case, hold off on any BP treatment...'
Cardiology note 08/11, ' - wean pressors for goal CI> start metop once off pressors >12 hours...- currently on pressors..'
Pt care note 08/11 @ 1100,' pt on Levophed at 2 mcg ...'
Please clarify which of the following is the most likely etiology of the above symptoms and treatment rendered/IV Pressors:
Cardiogenic shock
Hypotension only
Other ( please specify)
Use of terms such as suspected, likely, concern for, or probable (associated with a specific diagnosis that is being evaluated, monitored, or treated as if it exists) are acceptable and can be coded in the inpatient setting, when documented at the
time of discharge.
Thank you,
Malinda Doran RN
CDI Specialist
[place] [employer]
Please use your independent medical judgment in providing your response.
--- NOTE | 2025-08-14 14:35 | PTCARENOTE ---
All discharge paperwork reviewed w/ patient...all questions answered. rfid systems engineer and INT's removed. Pt's father to drive pt home. All belongings collected from room.
--- NOTE | 2025-08-14 16:31 | CM ---
Initial assessment completed with patient who lives with her mother, grandmother and cousin in a 2 story home with basement, B/B on 2nd, 1/2 bath on , ramp to enter. 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
Patient does not use any DME. In the house for mother and grandmother is a RW, SPC, hospital bed, benjamin lift and commode. Patient does assist in care. No in-home services. No HC-POA. No VA benefits. No psychiatric hospitalizations. PCP is
Chadwick Walker. Pharmacy is [facility] @ [address] [place] [address] in [place]. DIscharge POC: Anticipate home with no needs. To follow-up as outpatient.
--- NOTE | 2025-08-14 16:40 | CM ---
Patient has been medically cleared for discharge to home with no additional skilled services. Patient has arranged for transport home.
[2025-08-17 10:17] LABS: ACT-LR - POC 265 Seconds (116-155)
[2025-08-17 10:17] LABS: ACT-LR - POC 253 Seconds (116-155)
== END 2025-08-14 15:15 | disposition home or self-care (01) | DRG 359 ==
LOC: ICU 15:42
PROVIDERS: Nurse Practitioner; Nurse Practitioner Adult Health; Physician Assistant Medical; Radiology Diagnostic Radiology; ADMITTING PHYSICIAN Internal Medicine Cardiovascular Disease; CONSULT PHYSICIAN Internal Medicine Critical Care Medicine; CONSULT PHYSICIAN Thoracic Surgery (Cardiothoracic Vascular Surgery); EMERGENCY PHYSICIAN Emergency Medicine; FAMILY PHYSICIAN Physician Assistant Medical
PROC: 5A2204Z Restoration of Cardiac Rhythm, Single (ICD-10-PCS; 2025-08-10)
PROC: 027034Z Dilation of Coronary Artery, One Artery with Drug-eluting Intraluminal Device, Percutaneous Approach (ICD-10-PCS; 2025-08-10)
PROC: B2111ZZ Fluoroscopy of Multiple Coronary Arteries using Low Osmolar Contrast (ICD-10-PCS; 2025-08-10)
PROC: 0DH67UZ Insertion of Feeding Device into Stomach, Via Natural or Artificial Opening (ICD-10-PCS; 2025-08-10)
PROC: 5A12012 Performance of Cardiac Output, Single, Manual (ICD-10-PCS; 2025-08-10)
PROC: 4A023N7 Measurement of Cardiac Sampling and Pressure, Left Heart, Percutaneous Approach (ICD-10-PCS; 2025-08-10)
PROC: 0BH17EZ Insertion of Endotracheal Airway into Trachea, Via Natural or Artificial Opening (ICD-10-PCS; 2025-08-10)
PROC: 5A1935Z Respiratory Ventilation, Less than 24 Consecutive Hours (ICD-10-PCS; 2025-08-10)
PROC: 02C03ZZ Extirpation of Matter from Coronary Artery, One Artery, Percutaneous Approach (ICD-10-PCS; 2025-08-10)
DX: I21.19 ST elevation (STEMI) myocardial infarction involving other coronary artery of inferior wall (principal); I46.2 Cardiac arrest due to underlying cardiac condition; I49.01 Ventricular fibrillation; J69.0 Pneumonitis due to inhalation of food and vomit; J96.00 Acute respiratory failure, unspecified whether with hypoxia or hypercapnia; R57.0 Cardiogenic shock; I50.22 Chronic systolic (congestive) heart failure; Z68.41 Body mass index [BMI] 40.0-44.9, adult; E87.20 Acidosis, unspecified; I44.2 Atrioventricular block, complete; F17.210 Nicotine dependence, cigarettes, uncomplicated; I11.0 Hypertensive heart disease with heart failure; E78.5 Hyperlipidemia, unspecified; E11.65 Type 2 diabetes mellitus with hyperglycemia; I25.10 Atherosclerotic heart disease of native coronary artery without angina pectoris; I25.5 Ischemic cardiomyopathy; E03.9 Hypothyroidism, unspecified; E66.01 Morbid (severe) obesity due to excess calories; D72.829 Elevated white blood cell count, unspecified; E87.6 Hypokalemia; R74.01 Elevation of levels of liver transaminase levels; Z82.49 Family history of ischemic heart disease and other diseases of the circulatory system
CPT/HCPCS: 36620; 70450; 71045; 71250; 80048; 80053; 80061; 80306; 81003; 81015; 82248; 82330; 82805; 82962; 83036; 83605; 83735; 83880; 84100; 84132; 84302; 84478; 84484; 85014; 85018; 85025; 85049; 85347; 85610; 85730; 86850; 86900; 86901; 87070; 87205; 87449; 87899; 92950; 93005; 93306; 93458; 93880; 94002; 94003; 94060; 99152; 99153; 99285; C1725; C1874; C1894; C9606; J0282; J1327; J2358; Q9967

== ENCOUNTER 2025-08-29 04:44 | Inpatient (IN) | payer OTHER, SELFPAY ==
[2025-08-28 22:54] VITALS: BP 139/87
[2025-08-28 23:11] VITALS: BMI 42.7
[2025-08-28 23:13] VITALS: BP 128/78
[2025-08-28 23:25] LABS: Hematocrit 37.0 % (37.0-47.0); Hemoglobin 12.3 g/dL (12.0-16.0); Mean Corp Hgb Conc. 33.2 g/dL (33.0-37.0); Mean Corpuscular Volume 85.3 fL (81.0-99.0); Nucleated Red Blood Cells % 0 %; Platelet Count 369 10^3/uL (130-400); Red Cell Dist. Width 12.7 % (11.5-14.5)
[2025-08-28 23:58] LABS: ALT (SGPT) 20 U/L (0-35); AST (SGOT) 18 U/L (14-36); Albumin 4.2 g/dl (3.5-5.0); Alkaline Phosphatase 70 U/L (38-126); Blood Urea Nitrogen 12 mg/dl (7-17); Calcium 9.9 mg/dl (8.4-10.2); Carbon Dioxide 26 mmol/L (22-30); Chloride 103 mmol/L (98-107); Estimated Creatinine Clearance > 125 ml/min; Glucose 117 mg/dl (70-99); Potassium 4.4 mmol/L (3.5-5.1); Sodium 134 mmol/L (135-145); Total Protein 8.2 g/dl (6.3-8.2); eGFR > 60.00
[2025-08-29] VITALS (10 sets, daily range): BP systolic 101–128; BP diastolic 70–81; BMI 41.8
--- NOTE | 2025-08-29 00:06 | ED.GENMED ---
History of Present Illness
<Graciela Morales PA-C - Last Filed: 08/29/25 03:17>
General
Chief Complaint: Chest Pain
Source: patient
Exam Limitations: none
Time Seen by Provider: 08/28/25 23:41
Nursing documentation reviewed up to this point in time: agreed with
History of Present Illness
History of Present Illness:
Note:
CHIEF COMPLAINT(S)
Chest pain.
HISTORY OF PRESENT ILLNESS
The patient is a 45-year-old female with pmh of CHF, presenting with chest pain that began earlier today while she was talking on the phone with a friend. The pain initially manifested in the left shoulder and arm, then radiated towards the thoracic
region. She described the sensation as soreness, noting it was similar to previous episodes that prompted medical evaluation and she was found to have STEMI. The patient denies any recent heavy lifting or specific chest injuries, though she
mentioned picking up a bag of laundry. She does not recall any unusual activity that could have triggered this pain.
The patient is uncertain about her current rules examiner for follow-up post previous discussions about potential surgical interventions like bypass surgery. She has a history of ventricular fibrillation, as reported in past medical records, though
she is not currently aware of having an implanted defibrillator. The patient is on aspirin and Ticagrelor (Burlinta), and she maintains her medication schedule as prescribed. She takes her medications daily at 8 AM and again at 8 PM. No recent
dosage changes have been made. The pain was not significantly aggravated by deep breathing, and there was no reported upper abdominal pain or burning van to gastroesophageal reflux disease. No leg swelling, significant travel, or recent
immobilization has been reported.
PAST MEDICAL AND SURGICAL HISTORY
Patient is a follow-up appointment with cardiology later this week
She has appointment with CT surgery next week to consider possible bypass surgery
MEDICATIONS
- Aspirin (daily)
- Ticagrelor (Burlinta), taken at 8 AM and 8 PM daily.
- Other medications mentioned include metformin.
PHYSICAL EXAM
General: Alert, no acute distress.
Skin: Warm, dry.
Head: Normocephalic, atraumatic.
Neck: Supple, trachea midline.
Eyes, Ears, Nose, and Throat: Oral mucosa moist.
Cardiovascular: Regular rate and rhythm, no murmurs. Normal peripheral perfusion, no edema.
Respiratory: Respirations are non-labored. No wheezes, rales, or rhonchi. No reproducible tenderness.
Gastrointestinal: Abdomen nondistended. No tenderness to palpation.
Musculoskeletal: Normal range of motion, normal strength.
Neurological: CN II-XII intact. Alert and oriented to person, place, time, and situation, no focal neurological deficit observed.
Psychiatric: Cooperative, appropriate mood & affect.
PLAN
- Administer full-strength aspirin and nitroglycerin to evaluate improvements in pain
- Conduct further diagnostic testing including chest X-ray to rule out pneumothorax or pulmonary injury.
- Monitor troponin enzyme levels for evidence of myocardial infarction, as previous levels were elevated indicating cardiac injury.
- Re-evaluate after administration of aspirin and nitroglycerin and review diagnostics, including any imminent changes in the ECG (electrocardiogram) and EKG (electrocardiograph).
DIFFERENTIAL DIAGNOSIS
The Differential Diagnosis includes, in no particular order and is not limited to:
1. Myocardial infarction
2. Angina pectoris
3. Musculoskeletal pain
4. Gastroesophageal reflux disease
5. Costochondritis
6. Pericarditis
7. Pulmonary embolism
8. Pneumothorax
9. Aortic dissection
10. Anxiety or panic attack
CHART REVIEW
Reviewed discharge summary. Patient seen for inferior STEMI with ischemic cardiomyopathy
Cardiac catheterization complicated by multiple ventricular fibrillation arrest requiring intubation, she did have successful PCI of her mid right CA lesion, she does have proximal LAD disease and the plans for possible mid CAB versus traditional
CABG
Trans thoracic echocardiogram showed LVEF of 40 to 45% with hypokinesis of the inferior/inferior septal valles without valvular heart disease
IMAGING
Chest x-ray without acute cardiothoracic abnormality
CT angiogram of the chest shows no evidence of PE, no evidence of pericardial effusion
ECG
ECG today shows no new changes
Normal sinus rhythm with rate of 83 with left axis deviation
MDM/DISPOSITION
The patient is a 45-year-old female with pmh of CHF, presenting with chest pain that began earlier today while she was talking on the phone with a friend. The pain initially manifested in the left shoulder and arm, then radiated towards the thoracic
region. Patient is currently chest pain-free. On physical exam, she is well-appearing in no acute distress. Vitals are stable. Troponin today 0.058, significantly trended down from previous hospitalization. Concern for recurrent ACS versus
pericarditis/Talat syndrome. PE less likely. Considering patient's history as well as episode of pain similar to STEMI episode along with disease present in the LAD, will initiate heparin. Case reviewed with cardiology, Dr. Campos aware of
plan and consulted, is in agreement with plan for admission to medicine. ED attending aware.
Past History
<Graciela Morales PA-C - Last Filed: 08/29/25 03:17>
Past History
ED Past Medical History: Other (had a 'torn achilles' same side )
ED Past Surgical History: Orthopedic
Social History
Alcohol: Occasional
Personal: Single
Living: with family
Employment: Employed
Review of Systems
<Graciela Morales PA-C - Last Filed: 08/29/25 03:17>
Review of Systems
All Other Systems: ROS reviewed and negative except as documented in HPI and ROS
Phy Exam
<Graciela Morales PA-C - Last Filed: 08/29/25 03:17>
Physical Exam
Physical Exam:
see hpi
Scores
<Graciela Morales PA-C - Last Filed: 08/29/25 03:17>
Heart Score for Chest Pain Patients
STEMI patient?: No
History: Moderately Suspicious
ECG: Nonspecific Repolarization
Age: >45 - <65 years
Risk Factors: >/= 3 Risk Factors or History of CAD
Troponin: >1 - <3 x Normal Limit
Heart Score for Chest Pain Patients: 6
Heart Score Risk: 20.3% MACE over next 6 weeks
Course
<Graciela Morales PA-C - Last Filed: 08/29/25 03:17>
Orders/Labs/Results
Orders:
Orders
08/28/25 22:51
Electrocardiogram (*1) Urgent
Reason for Study: Chest Pain
EKG- Treatment ONCE
08/28/25 23:18
Complete Blood Count/With Diff Urgent
Comprehensive Metabolic Panel Urgent
HCG, Serum Qualitative Screen Urgent
Troponin I Urgent
08/29/25 00:00
CR Chest - 2 Views Urgent
Comment:
Reason For Exam: chest pain
08/29/25 00:07
Aspirin 325 mg PO NOW STA
08/29/25 00:12
D-Dimer Urgent
08/29/25 00:46
Nitroglycerin Ointment [Nitro-Bid] 1 inch TOPICAL NOW STA
08/29/25 00:54
Heparin 4,000 units IV NOW STA
Nursing to Place Non Medication Order As Directed
Physician Order: PTT 6 hours after initial start of Heparin infusion
Above order entered?: Yes
08/29/25 00:55
Electrocardiogram (*1) Urgent
Reason for Study: Chest Pain
08/29/25 01:00
Heparin 64286 Units/250 ml 25,000 units in 250 ml IV PER PROTOCOL
Weight to be used for heparin protocol in kilograms (kg):: 112.7
Protocol:: Cardiac Tx/Acute Coronary
PTT Goal Range to be used:: PTT 73 to 111 seconds
Order type:: Initial
INITIAL Infusion Dose (UNITS/KG/hr) & then follow protocol:: 15 units/kg/hr
Infusion Dose in UNITS/hr & then follow protocol (UNITS/hr):: 1,500
INFUSION RATE in mL/hr & then follow protocol (mL/hr):: 15
PTT less than or equal to 64 seconds:: Increase rate by 200 units/hr (+ 2 mL/hr)
PTT 64.1 to 72.9 seconds:: Increase rate by 100 units/hr (+ 1 mL/hr)
PTT 73 to 111 seconds:: Target Range. No change in rate.
PTT 111.1 to 130.9 seconds:: Decrease rate by 100 units/hr (- 1 mL/hr)
PTT 131 to 199.9 seconds:: HOLD for 1 hr. Then decrease rate by 200 units/hr (- 2 mL/hr)
PTT greater than or equal to 200 seconds:: HOLD for 2 hrs & Notify Provider. Then decrease by 200 units/hr (-
2 mL/hr)
Lab follow-up:: Each change, PTT q6h until 2 consecutive are therapeutic. Then PTT
daily.
08/29/25 01:04
PTT Urgent
Comment: Obtain baseline before beginning heparin infusion if not already collected
Troponin I Urgent
08/29/25 01:18
CT Chest PE Study Urgent
Comment:
Reason For Exam: left shoulder pain, chest pain, d dimer
08/29/25 01:21
Add On- LAB Urgent
Tests Added?: beta hcg qual
08/29/25 07:00
PTT Routine
Abnormal Lab Results
08/28/25 08/29/25 08/29/25
23:18 00:12 01:04
WBC 16.1 H 10^3/uL
(4.8-10.8)
Abs Immat Gran (auto) 0.1 H 10^3/uL
(0-0.05)
Absolute Neuts (auto) 11.6 H 10^3/uL
(1.4-6.5)
Absolute Monos (auto) 1.1 H 10^3/uL
(0.1-0.6)
Lymphocytes % 19.1 L %
(20.5-51.1)
D-Dimer 1.93 H ug/mlFEU
(0.00-0.50)
Sodium 134 L mmol/L
(135-145)
Glucose 117 H mg/dl
(70-99)
Troponin I 0.058 H* ng/ml 0.057 H* ng/ml
08/28/25 23:18
08/28/25 23:18
Vital Signs
Initial and Last Documented VS:
Initial Vital Signs
Temp Pulse Resp BP Pulse Ox
98.0 F 87 16 139/87 99
08/28/25 22:54 08/28/25 22:54 08/28/25 22:54 08/28/25 22:54 08/28/25 22:54
Last Documented Vital Signs
Temp Pulse Resp BP Pulse Ox
98.0 F 79 25 121/72 98
08/28/25 22:54 08/29/25 02:00 08/29/25 02:00 08/29/25 02:00 08/29/25 02:00
<Genoveva Perea, DO - Last Filed: 08/29/25 01:12>
Orders/Labs/Results
Orders:
Orders
08/28/25 22:51
Electrocardiogram (*1) Urgent
Reason for Study: Chest Pain
EKG- Treatment ONCE
08/28/25 23:18
Complete Blood Count/With Diff Urgent
Comprehensive Metabolic Panel Urgent
HCG, Serum Qualitative Screen Urgent
Troponin I Urgent
08/29/25 00:00
CR Chest - 2 Views Urgent
Comment:
Reason For Exam: chest pain
08/29/25 00:07
Aspirin 325 mg PO NOW STA
08/29/25 00:12
D-Dimer Urgent
08/29/25 00:46
Nitroglycerin Ointment [Nitro-Bid] 1 inch TOPICAL NOW STA
08/29/25 00:54
Heparin 4,000 units IV NOW STA
Nursing to Place Non Medication Order As Directed
Physician Order: PTT 6 hours after initial start of Heparin infusion
Above order entered?: Yes
08/29/25 00:55
Electrocardiogram (*1) Urgent
Reason for Study: Chest Pain
08/29/25 01:00
Heparin 50039 Units/250 ml 25,000 units in 250 ml IV PER PROTOCOL
Weight to be used for heparin protocol in kilograms (kg):: 112.7
Protocol:: Cardiac Tx/Acute Coronary
PTT Goal Range to be used:: PTT 73 to 111 seconds
Order type:: Initial
INITIAL Infusion Dose (UNITS/KG/hr) & then follow protocol:: 15 units/kg/hr
Infusion Dose in UNITS/hr & then follow protocol (UNITS/hr):: 1,500
INFUSION RATE in mL/hr & then follow protocol (mL/hr):: 15
PTT less than or equal to 64 seconds:: Increase rate by 200 units/hr (+ 2 mL/hr)
PTT 64.1 to 72.9 seconds:: Increase rate by 100 units/hr (+ 1 mL/hr)
PTT 73 to 111 seconds:: Target Range. No change in rate.
PTT 111.1 to 130.9 seconds:: Decrease rate by 100 units/hr (- 1 mL/hr)
PTT 131 to 199.9 seconds:: HOLD for 1 hr. Then decrease rate by 200 units/hr (- 2 mL/hr)
PTT greater than or equal to 200 seconds:: HOLD for 2 hrs & Notify Provider. Then decrease by 200 units/hr (-
2 mL/hr)
Lab follow-up:: Each change, PTT q6h until 2 consecutive are therapeutic. Then PTT
daily.
08/29/25 01:04
PTT Urgent
Comment: Obtain baseline before beginning heparin infusion if not already collected
Troponin I Urgent
08/29/25 01:18
CT Chest PE Study Urgent
Comment:
Reason For Exam: left shoulder pain, chest pain, d dimer
08/29/25 01:21
Add On- LAB Urgent
Tests Added?: beta hcg qual
08/29/25 07:00
PTT Routine
Abnormal Lab Results
08/28/25 08/29/25 08/29/25
23:18 00:12 01:04
WBC 16.1 H 10^3/uL
(4.8-10.8)
Abs Immat Gran (auto) 0.1 H 10^3/uL
(0-0.05)
Absolute Neuts (auto) 11.6 H 10^3/uL
(1.4-6.5)
Absolute Monos (auto) 1.1 H 10^3/uL
(0.1-0.6)
Lymphocytes % 19.1 L %
(20.5-51.1)
D-Dimer 1.93 H ug/mlFEU
(0.00-0.50)
Sodium 134 L mmol/L
(135-145)
Glucose 117 H mg/dl
(70-99)
Troponin I 0.058 H* ng/ml 0.057 H* ng/ml
08/28/25 23:18
08/28/25 23:18
Vital Signs
Initial and Last Documented VS:
Initial Vital Signs
Temp Pulse Resp BP Pulse Ox
98.0 F 87 16 139/87 99
08/28/25 22:54 08/28/25 22:54 08/28/25 22:54 08/28/25 22:54 08/28/25 22:54
Last Documented Vital Signs
Temp Pulse Resp BP Pulse Ox
98.0 F 79 25 121/72 98
08/28/25 22:54 08/29/25 02:00 08/29/25 02:00 08/29/25 02:00 08/29/25 02:00
<Graciela Morales PA-C - Last Filed: 08/29/25 03:17>
*Pulse Oximetry
SaO2: 100
Oxygen Mode of Delivery: Room air
Patient hypoxic: no
*Critical Care Note
Total Time (30-74mins, 75-104mins- exclusive of procedures): Not Applicable
ED Attending Note
<Graciela Morales PA-C - Last Filed: 08/29/25 03:17>
-
Portions of this chart may have been created with voice recognition software.� Occasional wrong word or��sound alike� substitutions may have occurred due to the inherent limitations of voice recognition software.
<Genoveva Perea DO - Last Filed: 08/29/25 01:12>
ED Attending Note
Patient seen and examined by attending physician: Yes
I performed a history and physical exam of patient and discussed management with resident, I reviewed resident's note and agree with documented findings and plan of care.: Yes
ED Attending Note:
This is a 45-year-old woman recently hospitalized 1 month ago with STEMI, undergoing urgent RCA thrombectomy and stent. Cardiac catheterization complicated by V-fib arrest requiring multiple defibrillations, ACLS procedure.
Cardiac catheterization also noted 80% stenosis of the proximal LAD, 70% lesion of the mid LAD and 60% lesion of the midportion of the obtuse marginal. She has been compliant with medications and feeling well until tonight when she developed
left-sided chest pain with numbness in left arm. Similar to chest pain she experienced with SC 1 month ago.
Initial EKG shows deep T wave inversions inferiorly as well as very minimal ST elevation in lead III and aVF, overall similar and unchanged from previous EKG August 12.
She is currently chest pain-free.
45-year-old woman appears somewhat older than stated age. Bright and alert, pleasant, appears in no acute distress.
Heart is regular rate and rhythm.
Lungs are clear to auscultation.
Initial troponin 0.058 which has trended down significantly from August 11 at 75. Troponin peaked last month at 93.
Concern for recurrent ACS, non-STEMI, other consideration is pericarditis/Talat's syndrome. She has had no shortness of breath, no cough, nothing to suggest pneumonia, PE, CHF.
Currently pain-free after 324 mg chewable aspirin.
Will initiate IV heparin, Nitropaste and will discuss case with cardiology.
Will continue to trend troponin.
Discharge Plan
Departure
Patient Disposition: Admit
Date of Disposition: 08/29/25
Time of Disposition: 03:08
Admit to: Med/Surg
Presentation/result/management discussed w/ accepting MD/DO: Hospitalist
Condition: Fair
Discharge Problem:
Chest pain
Prescriptions:
No Action
spironolactone 25 mg Tablet
25 mg PO DAILY Qty: 30 2RF
aspirin 81 mg Tablet,Chewable
81 mg PO DAILY Qty: 30 11RF
acetaminophen 325 mg Tablet
650 mg PO Q4HPRN PRN (Reason: mild pain) Qty: 30 0RF
metoprolol succinate 50 mg Tablet Extended Release 24 Hr
50 mg PO DAILY Qty: 30 3RF
ticagrelor 90 mg Tablet
90 mg PO BID Qty: 60 11RF
valsartan 80 mg Tablet
80 mg PO DAILY Qty: 30 3RF
rosuvastatin 20 mg Tablet
40 mg PO QPM Qty: 30 3RF
amoxicillin-pot clavulanate 875-125 mg Tablet
1 tab PO Q12 Qty: 2 0RF
(DME) Contour Next Test Strips Strip
Qty: 100 0RF
Rx Instructions:
Pt Testing 4 times a day
(DME) lancets [Microlet Lancet] Misc
Qty: 100 0RF
Rx Instructions:
Pt testing 4 times a day
(DME) pen needle, diabetic [Matilde 2nd Gen Pen Needle] 32 gauge x 5/32' Needle
Qty: 200 0RF
Rx Instructions:
Pt testing 4 times a day
metformin 500 mg Tablet
500 mg PO BID@0800,1700 Qty: 60 0RF
Rx Instructions:
Pt testing 4 times a day
insulin aspart U-100 [Novolog FlexPen U-100 Insulin] 100 unit/mL (3 mL) Insulin Pen
5 unit SC AC Qty: 5 0RF
Rx Instructions:
PT TAKING INSULIN 4 TIMES A DAY
insulin glargine [Lantus Solostar U-100 Insulin] 100 unit/mL (3 mL) Insulin Pen
20 unit SC HS Qty: 5 0RF
Rx Instructions:
PT TAKING INSULIN 4 TIMES A DAY
Referrals:
Yazan Bautista MD [Family Provider, Family Practice]
Interventions
Interventions:
*Risk Screen - Suicide Last Done: 08/28/25 22:54
*General Assessment Last Done: 08/28/25 22:54
*Neglect/Abuse Screening Last Done: 08/28/25 22:54
*ED COVID-19 Vaccine History Last Done: 08/28/25 23:11
*ED Influenza Vaccine History Last Done: 08/28/25 23:11
[facility] Fall Risk Assessment Tool Last Done: 08/28/25 23:11
ED- Cardiac Assessment Last Done: 08/28/25 23:11
Discharge Date and Time
Print Language: SRI LANKAN
[2025-08-29 00:21] LABS: Troponin I 0.058 ng/ml
[2025-08-29] MEDS: ASPIRIN 325 MG PO (00:24)
[2025-08-29] MEDS: NITRO-BID 1 INCH TOPICAL (00:50)
[2025-08-29 01:01] LABS: D-Dimer 1.93 ug/mlFEU (0.00-0.50)
[2025-08-29] MEDS: HEPARIN 4000 UNITS IV (01:11)
[2025-08-29] MEDS: HEPARIN 25000 UNITS/250 ML IV (01:12)
[2025-08-29 01:35] LABS: APTT 32.1 Sec (23.4-35.0)
[2025-08-29 01:42] LABS: Troponin I 0.057 ng/ml
[2025-08-29 01:56] LABS: HCG, Serum Qualitative Screen Negative
--- NOTE | 2025-08-29 04:32 | HPS.HSE ---
Family Physician
-
Family Physician: Yazan Bautista
Chief Complaint
-
Shoulder Pain
History of Present Illness
Patient is a 45y F with PMH significant for hypertension, hypothyroidism and recent admission for STEMI who presents to ED complaining of left shoulder pain and LUE numbness and tingling. Patient states that she developed L shoulder pain and arm
numbness around 6:30 this evening. She presented to the ED for further evaluation. She denies any associated SOB, nausea or diaphoresis. Patient notes that she had shoulder pain with her prior presentation as well - but it was much more severe.
Patient was recently hospitalized from 08/10 - 08/14 for inferior STEMI. She underwent PCI to the RCA with stent placement.
She was also noted to have proximal and mid LAD stenoses and plan is to follow-up with CT Surgery for discussion re: possible CAB / CABG
Her stay was complicated by multiple V-Fib arrests during her coronary intervention - none post revascularization.
She had a suspected aspiration during arrest and was treated with a course of abx for aspiration pneumonia.
She was also newly diagnosed with DM-II and was started on insulin.
Medical History
Past Medical History
Past Medical History: Reports Other
Additional Past Medical History:
ASCVD
Hypertension
DM-II
Obesity
Past Surgical History: Reports Other
Additional Past Surgical History:
PTCA with Stent (08/10/25)
Left Knee Arthroscopy
Social History
Tobacco: Former Smoker (Quit smoking last month. Approx 20 pack years total use.)
Alcohol: Occasional
Drug: None
Family History
Family History: Other (Father: CAD, DM Mother: DM)
Allergies / Home Medications
Allergies reflects when Allergies were last updated in [employer].
Home Medications with original date entered in [employer]
Allergy/Medication List:
Allergies
Allergy/AdvReac Type Severity Reaction Status Date / Time
No Known Allergies Allergy Verified 08/28/25 22:51
Home Medications
acetaminophen 325 mg tablet 650 mg (2 x 325 mg) PO Q4HPRN PRN mild pain #30 tabs 08/14/25
aspirin 81 mg chewable tablet 81 mg PO DAILY #30 tabs 08/14/25
blood sugar diagnostic (Contour Next Test Strips) #100 ea 08/14/25
insulin aspart U-100 100 unit/mL (3 mL) subcutaneous pen (Novolog FlexPen U-100 Insulin aspart) 5 unit (0.05 mL) SC AC Diabetes #5 ea 08/14/25
lancets (Microlet Lancet) #100 ea 08/14/25
metformin 500 mg tablet 500 mg PO BID@0800,1700 Diabetes #60 tabs 08/14/25
metoprolol succinate 50 mg tablet,extended release 24 hr 50 mg PO DAILY #30 tabs 08/14/25
pen needle, diabetic 32 gauge x 5/32' (Matilde 2nd Gen Pen Needle) #200 ea 08/14/25
rosuvastatin 20 mg tablet 40 mg (2 x 20 mg) PO QPM #30 tabs 08/14/25
spironolactone 25 mg tablet 25 mg PO DAILY #30 tabs 08/14/25
ticagrelor 90 mg tablet 90 mg PO BID #60 tabs 08/14/25
valsartan 80 mg tablet 80 mg PO DAILY #30 tabs 08/14/25
insulin glargine 100 unit/mL (3 mL) subcutaneous pen (Lantus Solostar U-100 Insulin) 2 unit SC HS Diabetes 08/29/25
Review of Systems
-
History Source: Patient
A 12 point ROS was completed and negative except as noted: Yes
Constitutional: Denies Fever or Chills
Respiratory: Denies Cough or Trouble Breathing
Cardiac: Denies Chest Pain or Palpitations
Abdomen/GI: Denies Abdominal Pain, Nausea, Vomiting or Diarrhea
: Denies Dysuria or Frequency
Musculoskeletal: Reports Joint Pain
Neurological: Reports Numbness; Denies Dizzy, Headache or Weakness
Psych: Denies Depression or Anxiety
Physical Exam
Vital Signs
Vital Signs
Temp Pulse Resp BP Pulse Ox
98.0 F 90 16 121/72 99
08/28/25 22:54 08/29/25 04:07 08/29/25 04:07 08/29/25 02:00 08/29/25 04:07
Physical Exam
General: Other (45y F in no acute distress.)
HEENT: Moist mucous membranes and PERRLA
Respiratory: Clear; No Wheezes, Rales or Rhonchi
Cardiac: S1/S2 and Regular Rhythm; No Murmur
GI: Soft, Non Tender, Non Distended and Normal Bowel Sounds
Musculoskeletal: No Clubbing, No Cyanosis and No Edema
Neuro: AO x 3
Laboratory Results
-
08/28/25 23:18
08/28/25 23:18
Laboratory Results
APTT 32.1 Sec (23.4-35.0) 08/29/25 01:04
Total Bilirubin 1.0 mg/dl (0.2-1.3) 08/28/25 23:18
AST 18 U/L (14-36) 08/28/25 23:18
ALT 20 U/L (0-35) 08/28/25 23:18
Alkaline Phosphatase 70 U/L (38-126) 08/28/25 23:18
Troponin I 0.057 ng/ml H* 08/29/25 01:04
Impression/Plan
-
A/P: Patient is a 45y F with PMH significant for HTN, DM-II and recent STEMI who presents to ED complaining of L shoulder pain and LUE numbness.
ASCVD / ACS
Recent Inferior STEMI s/p PCI / Stent
- Admit for further evaluation and treatment.
- Patient states that symptoms are much improved at present. No chest pain, dyspnea, diaphoresis, etc.
- EKG shows improvement in prior inferior ST changes.
- Troponin is 0.058 (repeat 0.057) which is decreased from D/C value of 75.4 and peak last admission of 93.
- Cath last admission with RCA lesion (stented) and prox LAD (80%), mid LAD (70%) and OM (60%).
- Continue IV heparin.
- Continue DAPT, beta-fely, statin, etc.
- Follow troponin and symptoms for any changes.
- Cardiology evaluation for additional recommendations.
Benign Hypertension
- Continue current med regimen.
DM-II
- Lantus 20 units daily on discharge and now down to 2 units per patient.
- Will hold entirely for now. Hold metformin.
- Follow glucose and cover with SSI as needed.
- A1C last month was 10.7%.
Leukocytosis
Aspiration Pneumonia
- No dyspnea, cough, etc. CXR shows improvement in basilar opacities.
- Has completed previous course of abx.
- Monitor off of additional abx for now. Follow temp curve and monitor for any new symptoms.
Hypothyroidism
- Listed in medical history but not on any T4 supplementation and no recent TFTs.
- Check TFTs and begin T4 replacement if needed.
Morbid Obesity due to excess calories
- Affects all aspects of care.
- Encourage healthy diet / efforts at weight loss.
DVT Prophylaxis: On IV heparin at present.
Code Status: Full
--- NOTE | 2025-08-29 07:47 | CON.CAR ---
Addendum entered and electronically signed by Will Campos MD 08/29/25 11:46:
I reviewed and agree with the note by MIRNA and it accurately reflects our care.
I saw and evaluated the patient, and I provided the substantive portion of the medical decision making. My assessment and plan is below:
45-year-old female with recent inferior STEMI (08/10/2025) and residual obstructive LAD disease who presents with 1 hour of chest pain. She reports that yesterday she was talking on the phone to her friend when she developed left shoulder pain that
radiated to her chest. Pain lasted about 1.5 hours and then resolved on its own. She had no associated nausea, dizziness, diaphoresis, or palpitations.
Physical exam: RRR, no murmurs, no lower extremity edema, clear lungs
Labs notable for troponin 0.058 -> 0.057 -> 0.062. Last troponin prior to discharge on 08/11/2025 was 75.4.
ECG: NSR, L axis deviation, old inferior infarct (unchanged from prior)
Atypical chest pain: Unclear if this was angina. She had very low level, flat troponins after 90 minutes of chest pain and ECG is unchanged. I certainly do not think it represents ACS. We will add isosorbide to her regimen. Plan is for follow-up
in our office on Thursday and with CT surgery next week.
Coronary artery disease: S/p inferior STEMI 2 weeks ago with JACQUE to RCA. Has residual LAD disease and is seeing CT surgery in consultation next week. Add isosorbide as above. Continue aspirin, ticagrelor, statin, and beta-fely.
HFrEF: Examines euvolemic. Continue BB, ARB, and MRA.
Original Note:
Consultation
Consultation Request
Date/Time Consultation Requested: 08/29/2025 06:20
Date/Time Consultation Performed: 08/29/2025 07:45
Requesting Provider: Dr. Ng
Performing Provider: MIRNA Lee for Dr. Campos
Reason for Consultation: Chest pain, CAD
Medical History
-
Chief Complaint: Chest pain
History of Present Illness:
Afshan Del Cid is a 45-year-old female (will be following with Dr. Wang), with recent STEMI 08/10/2025 status post JACQUE with residual disease being evaluated by CT surgery as an outpatient, ischemic cardiomyopathy (LVEF 40-45%), hypertension,
hypercholesterolemia, ventricular fibrillation prior to revascularization, and uncontrolled type 2 diabetes mellitus (HgbA1c 10.7%), and obesity who presented with chest pain. It originally started in the left shoulder and arm and then radiated
into her midsternal anterior chest. It lasted greater than 1 hour. She was on the phone when it started. She also endorses left hand numbness. She is not having any chest pain at the time of this consultation.
Past Medical History
Past Medical History: CAD, CHF (ICM), HTN, Hypercholesterolemia, IDDM and GA (STEMI 07/2025)
Past Surgical History: Orthopedic
Social History
Tobacco: Former Smoker (Quit after STEMI)
Alcohol: Occasional
Drug: None
Family History
Family History: Reviewed & Not Pertinent
Allergies / Home Medications
Allergy/AdvReac Type Severity Reaction Status Date / Time
No Known Allergies Allergy Verified 08/28/25 22:51
�Medication �Instructions �Recorded �Confirmed �Type
acetaminophen 325 mg tablet 650 mg (2 x 325 mg) PO Q4HPRN PRN 08/14/25 08/29/25 Rx
mild pain #30 tabs
aspirin 81 mg chewable tablet 81 mg PO DAILY #30 tabs 08/14/25 08/29/25 Rx
blood sugar diagnostic (Contour #100 ea 08/14/25 08/29/25 Rx
Next Test Strips)
insulin aspart U-100 100 unit/mL 5 unit (0.05 mL) SC AC Diabetes #5 08/14/25 08/29/25 Rx
(3 mL) subcutaneous pen (Novolog ea
FlexPen U-100 Insulin aspart)
lancets (Microlet Lancet) #100 ea 08/14/25 08/29/25 Rx
metformin 500 mg tablet 500 mg PO BID@0800,1700 Diabetes 08/14/25 08/29/25 Rx
#60 tabs
metoprolol succinate 50 mg 50 mg PO DAILY #30 tabs 08/14/25 08/29/25 Rx
tablet,extended release 24 hr
pen needle, diabetic 32 gauge x #200 ea 08/14/25 08/29/25 Rx
' (Matilde 2nd Gen Pen Needle)
rosuvastatin 20 mg tablet 40 mg (2 x 20 mg) PO QPM #30 tabs 08/14/25 08/29/25 Rx
spironolactone 25 mg tablet 25 mg PO DAILY #30 tabs 08/14/25 08/29/25 Rx
ticagrelor 90 mg tablet 90 mg PO BID #60 tabs 08/14/25 08/29/25 Rx
valsartan 80 mg tablet 80 mg PO DAILY #30 tabs 08/14/25 08/29/25 Rx
insulin glargine 100 unit/mL (3 2 unit SC HS Diabetes 08/29/25 08/29/25 History
mL) subcutaneous pen (Lantus
Solostar U-100 Insulin)
Review of Systems
-
History Source: Patient
All other systems: Negative unless noted
Constitutional: Fatigue
EENT: No Symptoms
Respiratory: No Symptoms
Cardiac: No Symptoms
Abdomen/GI: No Symptoms
: No Symptoms
Musculoskeletal: No Symptoms
Skin: No Symptoms
Neurological: No Symptoms
Endocrine: No Symptoms
Hematologic/Lymphatic: No Symptoms
Physical Exam
Vital Signs
Temp Pulse Resp BP Pulse Ox
98.2 F 81 18 116/71 100
08/29/25 06:30 08/29/25 06:15 08/29/25 06:30 08/29/25 06:00 08/29/25 06:30
Lab Results
08/28/25 23:18
08/28/25 23:18
Troponin I 0.057 ng/ml H* 08/29/25 01:04
Physical Exam
General: Well Developed, Well Nourished, No Apparent Distress and Comfortable
HEENT: Normocephalic, Anicteric and Moist Mucous Membranes
Respiratory: Clear and Non Labored Respirations
Cardiac: S1/S2 and Regular Rhythm
Breast: Deferred by me
GI: Soft, Non Tender, Non Distended and Normal Bowel Sounds
Rectal: Deferred by Provider
Genito-urinary: No Costovertebral Tender
Musculoskeletal: No Clubbing, No Cyanosis and No Edema
Skin: Warm and Dry
Neuro: AO x 3
Hematologic/Lymphatic: No Lymphadenopathy
Psych: Calm
Impression / Plan
-
I/P: 45F with recent STEMI 08/10/2025 status post JACQUE with residual disease being evaluated by CT surgery as an outpatient, ischemic cardiomyopathy (LVEF 40-45%), hypertension, hypercholesterolemia, ventricular fibrillation prior to
revascularization, and uncontrolled type 2 diabetes mellitus (HgbA1c 10.7%), and obesity who presented with chest pain.
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
Angina, atypical
- She had more than 1 hour of midsternal anterior chest pain without EKG changes and flat troponin
- Stop heparin drip, she is on ASA and ticagrelor
- Start Imdur
Left arm numbness, CTA ordered by primary
Abnormal troponin, nonischemic, trending down from prior GA
CAD, s/p Inferior STEMI
- [facility] 08/10/2025: 80% proximal LAD, 70% mid LAD, 60% mid OM, 100% mid RCA s/p PCI with JACQUE, peak troponin 93.000
- Cont. DAPT with aspirin and ticagrelor
- Statin + additional agents for LDL goal <55 (pre statin LDL 103)
- continue metoprolol succinate 50 mg daily
- Will see CTS outpatient to discuss LAD revasc, plan for mid-CAB vs. traditional CABG (09/13/25)
Ischemic cardiomyopathy (LVEF 45-50%), chronic
- Weight down, appears euvolemic
- GDMT:
- BB: metoprolol succinate 50 mg daily
- PAUL/ARB/ARNI: Entresto cost prohibitive. Continue valsartan 80 mg daily
- SGLT2 inhibitor: Cost prohibitive
- MRA: Continue spironolactone 25 mg daily
- Diuretic: Appears euvolemic. No role for diuresis.
- HF education
Leukocytosis, afebrile, likely reactive
Elevated D-dimer, CT without PE
Essential HTN, on GDMT as above
Type II Diabetes, 10.7% last admission
Obesity, BMI 41, she would benefit from weight loss, consider GLP1
Data Reviewed
-
EKG: Report Reviewed by me
Radiology: Report Reviewed by me
Medical Tests (Nuc Med, Echo etc): Report Reviewed by me
Labs: Labs Reviewed by me
Old Records: Reviewed
--- NOTE | 2025-08-29 08:00 | PTCARENOTE ---
Assumed care of pt from prev nsg shift; Pt AAOX3 w/no c/o Cp or SOB. Pt's VSS w/HR in the 80's & BP 124/76. Pt is SR on telemetry monitoring. Pt has IV Heparin drip infusing as ordered through patent IV line. Pt is NPO at this time until seen by
Cardiology. Pt w/call pelayo within reach & plan of care ongoing.
[2025-08-29 08:10] LABS: Glucose - Point of Care 136 mg/dl (70-99)
--- NOTE | 2025-08-29 08:17 | W.PN.HOSP.TC ---
Today's Communication/Plan
-
see PN
Assessment / Plan
Assessment / Plan
45yo M with PMHx of DM, HTN, STEMI on 08/10/25 with PCI and stent to RCA came with 2 hours of chest pain associated with LUE numbness. Admitted for chest pain w/u cannot exclude NSTEMI
A/P:
#Chest dyscomfort
ASA, Brilinta, statin
patient reports that he did not miss any doses of meds
serial troponin
EKG without ST elevations
Cardiology consult
Telemetry
#Elevated ddimer
#Leukocytosis
most likey reactive
No urinary, GI or respiratory symptoms
CT chest w/o acute pneumonia or pulmonary embolism
monitor CBC
#LUE numbness
transient
will make sence to do CTA head and neck as discussed and advised over the tigertext with neurologist
already on antiplatelets and statin
#DM type 1
insulin SS, continue basal/bolus
Accuchecks and DM diet
#2cm R adrenal gland nodule
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
#Essential HTN
#HFmrEF
cont home meds
DVT ppx on heparin drip
Full code
I have spent at least 59min reviewing chart, test results, communication with consultants and providing direct patient care
Anticipated Discharge: 24 - 48 hours
Subjective/Interval History
-
Date of Service: August 29, 2025
Objective Data
-
Labs:
Laboratory Results
08/28/25 08/29/25 08/29/25
23:18 01:04 08:10
WBC 16.1 H
Hgb 12.3
Hct 37.0
Plt Count 369
APTT 32.1 Pending
Sodium 134 L
Potassium 4.4
Chloride 103
Carbon Dioxide 26
BUN 12
Creatinine 0.6
Glucose 117 H
Calcium 9.9
Total Bilirubin 1.0
AST 18
ALT 20
Alkaline Phosphatase 70
Vital Signs:
Vital Signs
Temp Pulse Resp BP Pulse Ox
98.2 F 81 18 116/71 100
08/29/25 06:30 08/29/25 06:15 08/29/25 06:30 08/29/25 06:00 08/29/25 06:30
Review of Systems
-
History Source: Patient
All other systems: Reviewed and negative
Physical Exam
-
General: No Apparent Distress
HEENT: Normocephalic
Respiratory: Clear to Auscultation
GI: Soft, Nontender and Nondistended
Musculoskeletal: No Clubbing, No Cyanosis and No Edema
Neuro: Awake, Alert, Oriented and AO x 3
Psych: Calm
[2025-08-29 08:32] LABS: APTT 59.4 Sec (23.4-35.0)
[2025-08-29 08:59] LABS: Troponin I 0.062 ng/ml
[2025-08-29] MEDS: TOPROL XL 50 MG PO (09:45)
[2025-08-29] MEDS: DIOVAN 80 MG PO (09:45)
[2025-08-29] MEDS: ALDACTONE 25 MG PO (09:45)
[2025-08-29] MEDS: BRILINTA 90 MG PO (09:46)
[2025-08-29] MEDS: LOW STRENGTH ASPIRIN 81 MG PO (09:46)
[2025-08-29 11:49] LABS: Glucose - Point of Care 125 mg/dl (70-99)
--- NOTE | 2025-08-29 12:03 | W.DCSUMMARY ---
Discharge Summary
Discharge Data
Date of Admission: 08/29/25
Date of Discharge: 08/29/25
-
Pending Results: No
Hospital Course
45yo M with PMHx of DM, HTN, STEMI on 08/10/25 with PCI and stent to RCA came with 2 hours of chest pain associated with LUE numbness. Admitted for chest pain w/u and initial concern for NSTEMI. SHe has Hx of residual LAD disease and scheduled to
meet with CTS as outpatient. Possibly stable angina. As per cardiology - medically stable to d/c on additional isosorbyte. CTA head and neck as discussed and advised over the tigertext with neurologist. Radiolog could not schedule study for same
day and as cardio discharged patent and since symptoms resolved (its highly unlikely to have critical stenosis with minor and transient paresthesia) safe to provide Rx for outpatient study. Patient is in agreement and verbalized understanding.
already on antiplatelets and statin. Medcially stable for d/c home
I have spent at least 59min reviewing chart, test results, communication with consultants and providing direct patient care
Patient was managed for:
#Chest discomfort
#Elevated ddimer
#Leukocytosis
#LUE numbness
#DM type 1
#2cm R adrenal gland nodule
#Essential HTN
#HFmrEF
Discharge Plan
-
Patient Disposition: Home (Routine Discharge)
Discharge Diagnosis/Procedures: atypical chest pain
Diet: Diabetic, Carb Controlled
Activity: As tolerated
Others Tests: CTA head/neck
Referrals:
Jeannie Claire MD [Consulting Staff, Endocrinology] - in two to three weeks
Referral Note: adrenal nodule on CT
Yazan Bautista MD [Family Provider, Family Practice]
Prescriptions:
New
isosorbide mononitrate 30 mg Tablet Extended Release 24 Hr
30 mg PO DAILY Qty: 30 0RF
Continued
spironolactone 25 mg Tablet
25 mg PO DAILY Qty: 30 2RF
aspirin 81 mg Tablet,Chewable
81 mg PO DAILY Qty: 30 11RF
acetaminophen 325 mg Tablet
650 mg PO Q4HPRN PRN (Reason: mild pain) Qty: 30 0RF
metoprolol succinate 50 mg Tablet Extended Release 24 Hr
50 mg PO DAILY Qty: 30 3RF
ticagrelor 90 mg Tablet
90 mg PO BID Qty: 60 11RF
valsartan 80 mg Tablet
80 mg PO DAILY Qty: 30 3RF
rosuvastatin 20 mg Tablet
40 mg PO QPM Qty: 30 3RF
(DME) Contour Next Test Strips Strip
Qty: 100 0RF
Rx Instructions:
Pt Testing 4 times a day
(DME) lancets [Microlet Lancet] Misc
Qty: 100 0RF
Rx Instructions:
Pt testing 4 times a day
(DME) pen needle, diabetic [Matilde 2nd Gen Pen Needle] 32 gauge x 5/32' Needle
Qty: 200 0RF
Rx Instructions:
Pt testing 4 times a day
metformin 500 mg Tablet
500 mg PO BID@0800,1700 Qty: 60 0RF
Rx Instructions:
Pt testing 4 times a day
insulin aspart U-100 [Novolog FlexPen U-100 Insulin] 100 unit/mL (3 mL) Insulin Pen
5 unit SC AC Qty: 5 0RF
Rx Instructions:
PT TAKING INSULIN 4 TIMES A DAY
insulin glargine [Lantus Solostar U-100 Insulin] 100 unit/mL (3 mL) insulin pen
2 unit SC HS
Rx Instructions:
PT TAKING INSULIN 4 TIMES A DAY
Discharge Orders:
Discharge Patient (As Directed); Ordered 08/29/25
Ordered By: Yao José
Care Plan Goals
Care Plan Goals:
Problem: Readiness for enhanced knowledge related to diagnosis and treatment plan
Goal: Understand your diagnosis and treatment plan needs, including medications if applicable.
Instructions: Know your diagnosis, underlying causes and treatment plan options, including medications if applicable. Consult with your health care team to learn about your diagnosis and treatment plan, including medications if applicable.
Discharge Date and Time
Print Language: PERSIAN
--- NOTE | 2025-08-29 13:27 | CM ---
spoke to pt in room, she is prev indep, lives with her grandmother, mother and father in a 2 story home with a ramp to enter. she denies any dc plannng needs or dme's. plan is for dc to home when medically stable.
[2025-08-29 13:28] LABS: Hematocrit 35.8 % (37.0-47.0); Hemoglobin 11.9 g/dL (12.0-16.0); Mean Corp Hgb Conc. 33.2 g/dL (33.0-37.0); Mean Corpuscular Volume 84.4 fL (81.0-99.0); Nucleated Red Blood Cells % 0 %; Platelet Count 332 10^3/uL (130-400); Red Cell Dist. Width 12.7 % (11.5-14.5)
[2025-08-29] MEDS: IMDUR (EXTENDED RELEASE) 30 MG PO (13:43)
--- NOTE | 2025-08-29 16:25 | PTCARENOTE ---
Pt's IV line & monitoring specialist D/C'd & D/C instructions discussed w/pt & pt's father. Pt ambulated out w/staff escort w/her father driving her home. 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
== END 2025-08-29 16:27 | disposition home or self-care (01) | DRG 313 ==
LOC: IVU 04:44
PROVIDERS: Nurse Practitioner Family; Physician Assistant; ADMITTING PHYSICIAN Hospitalist; ATTENDING PHYSICIAN Internal Medicine; CONSULT PHYSICIAN Student in an Organized Health Care Education/Training Program; EMERGENCY PHYSICIAN Emergency Medicine; FAMILY PHYSICIAN Family Medicine
DX: R07.89 Other chest pain (principal); I50.20 Unspecified systolic (congestive) heart failure; Z87.891 Personal history of nicotine dependence; I25.10 Atherosclerotic heart disease of native coronary artery without angina pectoris; I11.0 Hypertensive heart disease with heart failure; E10.9 Type 1 diabetes mellitus without complications; Z79.4 Long term (current) use of insulin; E03.9 Hypothyroidism, unspecified; E66.01 Morbid (severe) obesity due to excess calories; E27.8 Other specified disorders of adrenal gland; Z79.02 Long term (current) use of antithrombotics/antiplatelets; Z79.82 Long term (current) use of aspirin; Z79.899 Other long term (current) drug therapy
CPT/HCPCS: 71046; 71275; 80053; 82962; 84443; 84484; 84703; 85025; 85379; 85730; 93005; 96374; 96376; 99285; Q9967

== ENCOUNTER → 2025-09-19 07:01 | Outpatient (REF) | payer OTHER, SELFPAY | LOC: RAD 07:01 | PROVIDERS: ATTENDING PHYSICIAN Family Medicine | DX: R20.2 Paresthesia of skin (principal); E11.59 Type 2 diabetes mellitus with other circulatory complications; I25.10 Atherosclerotic heart disease of native coronary artery without angina pectoris; I10 Essential (primary) hypertension; E78.5 Hyperlipidemia, unspecified; R51.9 Headache, unspecified | CPT/HCPCS: 70496; 70498; Q9967 ==

== ENCOUNTER 2025-09-22 04:55 | Inpatient (IN) | payer OTHER, SELFPAY ==
[2025-09-15 12:25] VITALS: BMI 41.4
[2025-09-15 13:09] LABS: Hematocrit 35.9 % (37.0-47.0); Hemoglobin 12.3 g/dL (12.0-16.0); Mean Corp Hgb Conc. 34.3 g/dL (33.0-37.0); Mean Corpuscular Volume 83.5 fL (81.0-99.0); Nucleated Red Blood Cells % 0 %; Platelet Count 284 10^3/uL (130-400); Red Cell Dist. Width 13.1 % (11.5-14.5)
[2025-09-15 13:12] LABS: Urine Character Clear (Clear)
[2025-09-15 13:19] LABS: INR 1.04; PT 13.7 Sec (11.4-14.6)
[2025-09-15 13:37] LABS: ALT (SGPT) 15 U/L (0-35); AST (SGOT) 16 U/L (14-36); Albumin 4.2 g/dl (3.5-5.0); Alkaline Phosphatase 70 U/L (38-126); Blood Urea Nitrogen 7 mg/dl (7-17); Calcium 9.5 mg/dl (8.4-10.2); Carbon Dioxide 26 mmol/L (22-30); Chloride 104 mmol/L (98-107); Estimated Creatinine Clearance > 125 ml/min; Glucose 116 mg/dl (70-99); Potassium 3.7 mmol/L (3.5-5.1); Sodium 138 mmol/L (135-145); Total Protein 7.8 g/dl (6.3-8.2); eGFR > 60.00
[2025-09-15 13:42] LABS: Urine Red Blood Cell 0-2 /HPF (0-2)
[2025-09-15 14:17] LABS: Glycohemoglobin (HgbA1c) 8.2 % (4.0-5.9)
--- NOTE | 2025-09-15 14:55 | CM ---
spoke with pt in PAT, we discussed preop CABG teaching including sternal and driving restrictions. she is prev indep, lives with her mother and grandmother in a 2 story home with a ramp to enter. she denies any dc planning needs. she has the ct educ
book, soap and instructions. she is agreeable to a f/u visit from the ct transitional care nurse after dc. plan is for dc to CABG 09/22, cm role explained and all questions answered.
[2025-09-22] VITALS (16 sets, daily range): BP systolic 60–160; BP diastolic 31–106; BMI 40.3
--- NOTE | 2025-09-22 05:32 | PTCARENOTE ---
admitted pt into 2264. pt confirmed 2 showers and NPO since midnight. pt clipped, washed with CHG, full admission and med rec completed. all questions answered, preop teaching given. awaiting CVOR. CTPA notified of 20mm hg difference of BP in arms.
[2025-09-22] MEDS: PROTONIX 40 MG PO (05:33)
[2025-09-22] MEDS: LOPRESSOR 25 MG PO (05:33)
[2025-09-22] MEDS: MAGNESIUM OXIDE 400 MG PO (05:33)
[2025-09-22] MEDS: BACTROBAN 2% OINTMENT 1 APPLIC NASAL ×2 (05:34→21:05)
--- NOTE | 2025-09-22 06:35 | W.CVOR.SURPR ---
CVOR Surgeon Immed Pre Op
-
I have examined this patient prior to performance of the scheduled procedure.
The patient's condition is unchanged from the time of the dictated/written History and
Physical and the patient is able to undergo the scheduled procedure.
[2025-09-22 07:52] LABS: Urine Character Clear (Clear)
[2025-09-22 07:54] LABS: ACT+ - POC 109 Seconds (82-134)
--- NOTE | 2025-09-22 08:50 | CM ---
Reviewed chart Miss Del Cid is in the operating room today. Prior to admission she resides with her mother and grandmother in a two story home with a ramp to enter. Prior to admission she was independent with ambulation and adls. Medical work-up
in progress. The discharge plan is to return home with his mother and grandmother with a home visit by the Transitional Care Nurse when medically stable.
[2025-09-22 09:27] LABS: Urine Red Blood Cell 0-2 /HPF (0-2); Urine Squamous Cell 0-2 /LPF (Few); Urine White Cell 0-2 /HPF (0-5)
[2025-09-22 09:50] LABS: ACT+ - POC 520 Seconds (82-134)
[2025-09-22 10:25] LABS: B.E. - POC -6.7 mmol/L; Glucose - POC 167 mg/dl (70-99); HCO3 - POC 20 mmol/L (21-28); Hematocrit - POC 35 % PCV (37-47); Hemodilution- POC Yes; Hemoglobin Calculated - POC 12.0; Ionized Calcium - POC 1.20 mmol/L (1.15-1.33); Lactate - POC 0.95 mmol/L (0.36-0.75); O2 Saturation %Calculated-POC 99.2 % (94-98); PCO2 - POC 41 mmHg (35-48); PO2 - POC 159 mmHg (83-108); POC Comment PRE; Potassium - POC 3.7 mmol/L (3.5-5.1); Sodium - POC 143 mmol/L (136-145); Specimen Type - POC Arterial; pH - POC 7.29 (7.35-7.45)
[2025-09-22 10:37] LABS: ACT+ - POC 517 Seconds (82-134)
[2025-09-22 11:02] LABS: B.E. - POC -1.4 mmol/L; Glucose - POC 174 mg/dl (70-99); HCO3 - POC 24 mmol/L (21-28); Hematocrit - POC 27 % PCV (37-47); Hemodilution- POC Yes; Hemoglobin Calculated - POC 9.1; Ionized Calcium - POC 1.05 mmol/L (1.15-1.33); Lactate - POC 1.43 mmol/L (0.36-0.75); O2 Saturation %Calculated-POC 99.9 % (94-98); PCO2 - POC 41 mmHg (35-48); PO2 - POC 302 mmHg (83-108); POC Comment CPB; Potassium - POC 5.1 mmol/L (3.5-5.1); Sodium - POC 139 mmol/L (136-145); Specimen Type - POC Arterial; pH - POC 7.37 (7.35-7.45)
[2025-09-22 11:13] LABS: ACT+ - POC 642 Seconds (82-134)
[2025-09-22 11:31] LABS: B.E. - POC -1.7 mmol/L; Glucose - POC 168 mg/dl (70-99); HCO3 - POC 25 mmol/L (21-28); Hematocrit - POC 30 % PCV (37-47); Hemodilution- POC Yes; Hemoglobin Calculated - POC 10.1; Ionized Calcium - POC 1.15 mmol/L (1.15-1.33); Lactate - POC 1.51 mmol/L (0.36-0.75); O2 Saturation %Calculated-POC 99.8 % (94-98); PCO2 - POC 47 mmHg (35-48); PO2 - POC 241 mmHg (83-108); POC Comment CPB; Potassium - POC 4.8 mmol/L (3.5-5.1); Sodium - POC 141 mmol/L (136-145); Specimen Type - POC Arterial; pH - POC 7.33 (7.35-7.45)
[2025-09-22 11:42] LABS: ACT+ - POC 511 Seconds (82-134)
[2025-09-22 12:02] LABS: B.E. - POC -1.6 mmol/L; Glucose - POC 185 mg/dl (70-99); HCO3 - POC 23 mmol/L (21-28); Hematocrit - POC 30 % PCV (37-47); Hemodilution- POC Yes; Hemoglobin Calculated - POC 10.2; Ionized Calcium - POC 1.13 mmol/L (1.15-1.33); Lactate - POC 1.54 mmol/L (0.36-0.75); O2 Saturation %Calculated-POC 99.9 % (94-98); PCO2 - POC 39 mmHg (35-48); PO2 - POC 321 mmHg (83-108); POC Comment CPB; Potassium - POC 4.8 mmol/L (3.5-5.1); Sodium - POC 141 mmol/L (136-145); Specimen Type - POC Arterial; pH - POC 7.38 (7.35-7.45)
[2025-09-22 12:11] LABS: ACT+ - POC 526 Seconds (82-134)
[2025-09-22 12:26] LABS: B.E. - POC -2.7 mmol/L; Glucose - POC 179 mg/dl (70-99); HCO3 - POC 22 mmol/L (21-28); Hematocrit - POC 29 % PCV (37-47); Hemodilution- POC Yes; Hemoglobin Calculated - POC 10.0; Ionized Calcium - POC 1.10 mmol/L (1.15-1.33); Lactate - POC 2.08 mmol/L (0.36-0.75); O2 Saturation %Calculated-POC 99.9 % (94-98); PCO2 - POC 36 mmHg (35-48); PO2 - POC 333 mmHg (83-108); Potassium - POC 4.7 mmol/L (3.5-5.1); Sodium - POC 142 mmol/L (136-145); Specimen Type - POC Arterial; pH - POC 7.39 (7.35-7.45)
[2025-09-22 12:31] LABS: ACT+ - POC 118 Seconds (82-134)
[2025-09-22 13:19] LABS: B.E. - POC -3.2 mmol/L; Glucose - POC 156 mg/dl (70-99); HCO3 - POC 22 mmol/L (21-28); Hematocrit - POC 29 % PCV (37-47); Hemodilution- POC Yes; Hemoglobin Calculated - POC 9.7; Ionized Calcium - POC 1.44 mmol/L (1.15-1.33); Lactate - POC 1.78 mmol/L (0.36-0.75); O2 Saturation %Calculated-POC 99.9 % (94-98); PCO2 - POC 37 mmHg (35-48); PO2 - POC 293 mmHg (83-108); Potassium - POC 4.1 mmol/L (3.5-5.1); Sodium - POC 140 mmol/L (136-145); Specimen Type - POC Arterial; pH - POC 7.38 (7.35-7.45)
[2025-09-22] MEDS: TYLENOL PO (13:33)
[2025-09-22] MEDS: NOVOLOG FLEXPEN SC ×2 (13:33→14:51)
[2025-09-22] MEDS: NEURONTIN PO ×2 (13:33→14:51)
[2025-09-22 14:29] LABS: Glucose - Point of Care 178 mg/dl (70-99)
[2025-09-22 14:36] LABS: Hematocrit 31.5 % (37.0-47.0); Hemoglobin 10.8 g/dL (12.0-16.0); Platelet Count 225 10^3/uL (130-400)
[2025-09-22 14:38] LABS: B.E. -2.5 mmol/L; HCO3 22.5 mmol/L (21-28); O2 Saturation % 99.7 % (94-98); PCO2 39 mmHg (32-35); PO2 130 mmHg (83-108); Potassium 4.3 mMOL/L (3.5-5.1); Sodium 137 mMOL/L (136-145)
--- NOTE | 2025-09-22 14:40 | CON.INTV ---
Consultation
Consultation Request
Date/Time Consultation Requested: 09/22/2025
Date/Time Consultation Performed: 09/22/2025
Requesting Provider: Dr. Hoover
Performing Provider: Dr. Saravanan Zaragoza
Reason for Consultation: Cardiac arrest
Medical History
-
History of Present Illness:
45-year-old morbidly obese female active tobacco smoker with a past medical history of hypertension and hypothyroidism history of ischemic cardiomyopathy with multivessel coronary artery disease-. Recently diagnosed July 2025 with complicated
clinical course at that time - prior stents in the past. Electively admitted for surgical revascularization.
Surgery underwent on 09/22/2025.
Records reviewed. Patient currently in the critical care unit, intubated on mechanical ventilation.
Unable to provide history per
Chest tube in place without significant air leak.
Past Medical History
Past Medical History: Other (See assessment and plan)
Social History
Tobacco: Smoker
Alcohol: None
Drug: None
Family History
Family History: Other (Coronary artery disease in father, type 2 diabetes on father. Lung cancer in maternal grandfather.)
Allergies / Home Medications
Allergies
Allergy/AdvReac Type Severity Reaction Status Date / Time
bee venom protein (honey bee) Allergy breathing Verified 09/14/25 09:46
difficulty
Home Medications
�Medication �Instructions �Recorded �Confirmed �Last Taken �Type
aspirin 81 mg chewable tablet 81 mg PO DAILY #30 tabs 08/14/25 09/22/25 09/21/25 08:00 Rx
blood sugar diagnostic (Contour #100 ea 08/14/25 08/29/25 Unknown Rx
Next Test Strips)
lancets (Microlet Lancet) #100 ea 08/14/25 08/29/25 Unknown Rx
metformin 500 mg tablet 500 mg PO BID@0800,1700 Diabetes 08/14/25 09/22/25 09/21/25 17:00 Rx
#60 tabs
metoprolol succinate 50 mg 50 mg PO DAILY #30 tabs 08/14/25 09/22/25 09/21/25 08:00 Rx
tablet,extended release 24 hr
pen needle, diabetic 32 gauge x #200 ea 08/14/25 08/29/25 Unknown Rx
532' (Matilde 2nd Gen Pen Needle)
rosuvastatin 20 mg tablet 40 mg (2 x 20 mg) PO QPM #30 tabs 08/14/25 09/22/25 09/21/25 18:00 Rx
spironolactone 25 mg tablet 25 mg PO DAILY #30 tabs 08/14/25 09/22/25 09/19/25 08:00 Rx
ticagrelor 90 mg tablet 90 mg PO BID #60 tabs 08/14/25 09/22/25 09/16/25 07:47 Rx
valsartan 80 mg tablet 80 mg PO DAILY #30 tabs 08/14/25 09/22/25 09/19/25 07:42 Rx
insulin glargine 100 unit/mL (3 3 unit SC HS Diabetes 08/29/25 09/22/25 09/21/25 22:00 History
mL) subcutaneous pen (Lantus
Solostar U-100 Insulin)
isosorbide mononitrate 30 mg 30 mg PO DAILY #30 tabs 08/29/25 09/22/25 09/19/25 07:30 Rx
tablet,extended release 24 hr
acetaminophen 325 mg tablet 650 mg PO Q4HPRN PRN pain 09/14/25 09/22/25 09/21/25 08:00 History
insulin aspart U-100 100 unit/mL 5 unit SC AC PRN if glucose >140 09/14/25 09/22/25 09/08/25 08:00 History
(3 mL) subcutaneous pen (Novolog
FlexPen U-100 Insulin aspart)
nitroglycerin 0.4 mg sublingual 0.4 mg sublingual Q5-15M PRN chest 09/14/25 09/22/25 Unknown History
tablet pain
Review of Systems
-
History Source: Patient
All other systems: Negative unless noted
Vitals / Labs / Diagnostic Testing
Vital Signs
Temp Pulse Resp BP Pulse Ox
99 F 77 14 129/86 99
09/22/25 05:46 09/22/25 05:46 09/22/25 05:46 09/22/25 05:08 09/22/25 05:46
Diagnostic Testing:
Physical Exam
-
HEENT: Normocephalic
Cardiovascular: S1/S2
Respiratory: Non-Labored Respirations
GI: Soft and Non Distended
Neurology: Other (Sedated and on mechanical ventilation.)
Skin: Warm
General: Comfortable
Assessment
-
Assessment: 45-year-old morbidly obese female active tobacco smoker with a past medical history of hypertension and hypothyroidism history of ischemic cardiomyopathy with multivessel coronary artery disease. Prior stents in the past. Electively
admitted for surgical revascularization.
Surgery underwent on 09/22/2025.
Status postcoronary artery bypass 09/22/2025--Dr. Hoover
Postoperative mechanical ventilator
-
Conditions present prior admission:
#Inferior ST elevation MT s/p C with suction aspiration thrombectomy of RCA + PCI of mid RCA lesion with JACQUE x 1 placed
#Ischemic cardiomyopathy/acute HFmrEF (EF: 45-50% on left ventriculography during C on 08/10/2025)
#In-hospital cardiac arrest (VF arrest occurred during cardiac catheterization at the end of diagnostic portion and recurrent VF arrest during therapeutic portion)
#Multifocal pneumonia (CAP) likely due to aspiration during her cardiac arrest on 08/10/2025
#DM type II c/b hyperglycemia requiring insulin gtt
#Tobacco use disorder (carries an approximate [id number] history, currently smoking 2 PPD; started smoking as a teenager with average use of 1 PPD; quit for 9 years at one point)
#Hypertension
#History of hypothyroidism
Plan:
She is doing well postop-currently on mechanical ventilation and appears comfortable.
ABG reviewed: Adequate oxygenation and ventilation.
Continue SIMV mode with no change
Spontaneous breathing trial per protocol once sedation wears off.
Anemia noted-no evidence of acute bleeding
Follow H&H serially
Hemodynamics -acceptable low-dose Levophed. To be weaned off.
Normal renal function.
Noel in place-follow urinary output.
Chest tube with no excessive drainage-no air leak.
Chest x-ray reviewed: With no pneumothorax or fluid collections.
Remain nothing by mouth
Head of the bed elevation
Glycemic control per protocol
DVT prophylaxis when safe from the surgical perspective.
Critical care statement: A total of 32 minutes of critical care time was provided for this patient today. This includes management of unstable vital signs, evaluation of the patient at bedside, reviewing the patient's pertinent medical records
including ventilator settings, arterial blood gases, radiographs, microbiology, laboratory evaluations and discussion with primary team, critical care nursing, and respiratory therapy.
--- NOTE | 2025-09-22 14:42 | PTCARENOTE ---
Received pt from [facility]. Intubated and sedated on the vent. ETT # 8 @ 22 cm. SIMV 40% 14 550 5/ 5 pulse ox 100%. SR on monitor w/ first degree AVB. 8's RT IJ cordis with swan at 40 cm. Lt radial A line transducing. Lines leveled, recalibrated
and flushed. Epicardial pacemaker set to back up of VVI 50. Received on levophed , precedex, and insulin. See flow sheet for totals/titrations. Abdomen obese, hypoactive bowel sounds noted. Noel draining clear yellow urine. Surgical sites
c,d,i. DP pulses palpable. Post op plan discussed with team on handoff.
[2025-09-22 14:48] LABS: INR 1.47; PT 18.0 Sec (11.4-14.6)
[2025-09-22 14:49] LABS: APTT 30.6 Sec (23.4-35.0)
[2025-09-22] MEDS: ANCEF 10 IV ×2 (14:50)
[2025-09-22 14:51] LABS: Blood Urea Nitrogen 8 mg/dl (7-17); Estimated Creatinine Clearance > 125 ml/min; Glucose 179 mg/dl (70-99); Magnesium 2.7 mg/dl (1.6-2.3)
[2025-09-22] MEDS: PACERONE PO (14:51)
[2025-09-22] MEDS: NSS 500 IV (14:51)
[2025-09-22] MEDS: CALCIUM GLUCONATE 100 IV (14:51)
--- NOTE | 2025-09-22 14:58 | W.PN.CT.SURG ---
CT Surgery Operative Note
-
CARDIAC SURGERY OPERATIVE REPORT
Preoperative Diagnosis: Multivessel Coronary Artery Disease with prior STEMI and angina
Postoperative Diagnosis: Same
Procedure(s) Performed:
1. Standard Sternotomy with Aortic and Right Atrial Cannulation
2. Internal Mammary Artery Harvesting, Left
3. Coronary artery bypass grafting x 4 (In situ BOWERS to LAD, Ao to RSVG to OM and diagonal sequential, Ao to RSVG to PDA)
4. Endoscopic vein harvesting of right saphenous vein
5. Transesophageal echocardiography
6. Placement of Temporary Ventricular Pacing Wires
7. Left atrial appendage ligation using atrial clip device
Date of Surgery: 09/22/2025
Comorbidities:
1. DM 2
2. Hypertension
3. STEMI
Attending Surgeon: Ai Hoover MD, MPH
Assistants: Concha Feng PA-C, Beth Jones PA-C (present and necessary to construction project assistant, endoscopic vein harvest, retraction, suction, exposure, suture management, and wound closure under my direction)
Anesthesiology: Carlos Dee MD and Lili Britt CRNA
Scrub and Circulating RNs: Earline Carmen, BENEDICTO, Madisyn Saldivar RN
Farm Laborer: Ortiz Blakely CCP
Anesthesia: GETA
EBL: per perfusion records
Products: None
CPB Time: 115 minutes
Aortic Cross Clamp Time: 105 minutes
Indication(s) for Procedures: This is a 45-year-old female who presented 1 month after STEMI with PCI to RCA for evaluation of multivessel coronary disease. During her STEMI she had cardiac arrest requiring ACLS with ROSC. The PCI to the RCA was
successful and appropriately reestablished flow. She had remaining disease in her LAD both proximal before diagonal and in the mid vessel and moderate to severe disease in OM branch.
Conduit(s) Quality:
BOWERS -decent size vessel with good flow
RSVG -good-sized vessel mostly uniform in size though does get smaller in the distal end. Mildly thickened but no significant sclerosis or varicosities
Target(s) Quality:
PDA -good-sized vessel, area of arteriotomy free of disease with good lumen easily probing 1 mm. Flow with cardioplegia is 45 cc/min at 80 mmHg and flow probe shows 28 cc/min with PI 1.9
OM -moderate-sized vessel, mild disease in the area of the arteriotomy mostly on the posterior wall but easily if probes 1 mm. Flow with cardioplegia 35 cc/min at 80 mmHg and flow probe 65 cc/minute with PI 3.2 has a sequential.
Diagonal -this was a decent sized vessel that was larger than our OM and is affected by disease in the proximal LAD. Great lumen at site of arteriotomy with flow on cardioplegia 55 cc/min at 80 mmHg as a sequential. On flow probe there is 65
cc/min with PI 3.2 as a sequential.
LAD -moderate-sized vessel reaching down to the apex with excellent lumen at site of arteriotomy and no disease. Easily able to pass 1 mm probe distal and proximal. On flow probe 25 cc/min with PI 2.8.
Findings: A ELISABET was performed prior to the procedure showing normal EF without regional wall motion abnormalities and normal valves. Postprocedure the ELISABET showed EF 55 to 60% with improved contractility and no new regional wall motion
abnormalities. She was able to come off bypass without requiring pacing and internal conduction showing normal sinus rhythm. The BOWERS was harvested in a pedicled fashion. Following bypass grafting, test dose cardioplegia was given down each distal
and confirmed patency and hemostasis. Each distal was probed both proximally and distally to confirm disease and patency, respectively.
Description of Procedure: The patient was taken to the operating room. Their identity and procedure to be performed were verified and they were positioned supine on the operating table. Induction via general anesthesia with endotracheal intubation
was performed and central venous access and arterial monitoring were inserted. A preoperative transesophageal echocardiogram was performed to assess cardiac function and valvular function. The patient was then prepped and draped from chin to feet in
a sterile fashion. A preoperative time-out was performed with all members of the team present. A midline chest incision was performed along with median sternotomy. Simultaneous endoscopic access of the right lower extremity for saphenous vein
harvest was obtained along with administration of an initial 5,000 units of IV heparin. A RulTract sternal retractor was positioned to exposure the left internal mammary bed. The mammary was harvested and found to have good flow. A medium clip was
applied to the distal end of the mammary after dividing it. It was wrapped in a papaverine soaked RayTec and replaced back into the left hemithorax. The RulTract was exchanged for a median sternal retractor. The innominate vein was isolated. Full
heparinization was given (a total of 60,000 units). We created a pericardial well. The aortic cannulation site was chosen where it was soft, pliable, and free of calcium. Cannulation was performed with an arterial cannula in the ascending aorta and
a triple-stage venous cannula through the right atrial appendage. The arterial cannula line had an appropriate bounce and correlating pressures with test dosing. Next, a root vent/antegrade cannula was inserted into the ascending aorta. The ACT was
confirmed to be over 400 and retrograde autologous priming was performed before commencing cardiopulmonary bypass. The pulmonary artery was away from the aorta to facilitate a clamp site. The aortic cross-clamp was placed after decreasing
the flow on the bypass and mean arterial pressure. A total of 1.2L initial dose of antegrade Del-Nido cardioplegia solution was given and planned for re-dosing every 75 minutes as necessary. There was rapid electro-mechanical arrest of the heart at
230 cc of cardioplegia. The left ventricle was observed for distention on echocardiogram and manual palpation. Cold slush was placed into a sponge and topically on the RV while we systemically cooled to 34 degrees centigrade.
First I position the heart to expose the left atrial appendage which was notably small. I released the ligament of Serafin and using visual inspection shows a 35mm Atriclip. The clip placed placed across the appendage at the base with
satisfactory positioning. Next I positioned the heart to expose obtuse marginal artery and the lateral wall. A inaja blade was used to expose the coronary and perform the arteriotomy. Coronary Schroeder scissors were used to enlarge the incision. The
saphenous vein was trimmed and beveled to an appropriate size. The distal anastomosis was performed using 7-0 prolene in an end-to-side fashion. Antegrade cardioplegia was administered into the graft. Appropriate hemostasis and flow were confirmed.
The graft was measured for length to the diagonal and confirmed that a sequential could be performed with good course leading to the aorta. A suitable site on the diagonal branch was chosen. We dissected and prepared the distal target in a similar
fashion. A [id number] anastomosis was created with a 7-0 prolene. Antegrade cardioplegia was administered into the graft. Appropriate hemostasis and flow were confirmed. The graft was measured for length to the aorta and cut. Then I positioned
the heart to expose the posterior descending artery from the right coronary on the posterior wall of the heart. A Mayes blade was used to expose the coronary and perform the arteriotomy. Coronary Schroeder scissors were used to enlarge the incision.
The distal anastomosis was performed using 7-0 Prolene in an end-to-side fashion. Antegrade cardioplegia was administered into the graft. Appropriate hemostasis and flow were confirmed. The graft was measured for length to the aorta and cut. A
suitable target on the mid left anterior descending was identified. We dissected and prepared the distal target in a similar fashion. We retrieved the BOWERS from the chest and created a pericardial opening while being cognizant of the phrenic nerve
to facilitate the course of the mammary. The distal end of the mammary was prepped and beveled to size. We verified orientation and length of the DEVORAH and found brisk flow. An end-to-side anastomosis was created with a 7-0 prolene. We temporarily
released the bulldog clamp on the mammary to inspect flow. Perfusion to the LAD territory was visualized and hemostasis was confirmed. The bull clamp was replaced on the mammary. The heart was filled and the root was distended with antegrade
cardioplegia to make final assessment of graft length and orientation. We created 2 aortotomies using a #11 blade then a 4.0mm aortic punch. The proximal anastomoses were created in an end-to-side fashion using 6-0 prolene. At the the same time, we
re-warmed to 36.5 degrees centigrade. The bulldog clamp was removed from the mammary. Temporary bipolar ventricular pacing wires were placed on the base of the right ventricle. The patient was placed in a Trendelenburg position and flows on bypass
were lowered. The aortic cross clamp was removed and flows were slowly brought back up. All bypass grafts were inspected and were free from kinking or twisting. The distal and proximal anastomoses appeared hemostatic. Once transesophageal
echocardiography appeared satisfactory for de-airing, the flows were temporarily lowered for root vent removal. After verifying acceptable parameters, we initiated weaning from cardiopulmonary bypass. Once we were off cardiopulmonary bypass, the
venous cannula was clamped and removed. A test dose of protamine was administered and the patient was monitored for any adverse reaction before resuming protamine. Once half of the protamine dose was delivered, pump suckers were turned off and the
systolic blood pressure was lowered for aortic decannulation. The aortic cannula was removed and pursestrings were tied down. All cannulation sites were oversewn with a 4-0 prolene. The mammary bed was inspected and hemostasis was confirmed. Once
the mediastinum was hemostatic, 24Fr Brian drain was placed in the left pleural cavity and two 24Fr Brian drains were placed within the pericardium. The sternum was approximated with 4 #8 double stainless steel wires and 3 titanium plates. Fascia
was approximated with #1 vicryl suture. The subcutaneous, dermis and epidermis were closed in layers in a running fashion. The skin wound was cleansed and dressed.
All instrument, sponge, and needle counts were confirmed to be correct x 2 at the end of the operation. The patient was transferred to the cardiac intensive care unit in critical but stable condition.
I, Dr. Ai Hoover, was present, scrubbed for, and performed all critical elements of this procedure.
Ai Hoover MD, MPH
Cardiothoracic Surgeon
[facility]
This operative dictation was created using the [employer] dictation system. Please excuse any grammatical, typographical, or 'sound alike' errors
[2025-09-22 15:03] LABS: Glucose - Point of Care 171 mg/dl (70-99)
--- NOTE | 2025-09-22 15:56 | PTCARENOTE ---
Awakes spontaneously, Able to follow commands . Moves all extremities. Respiratory therapist called for CPAP trial
[2025-09-22 16:03] LABS: Glucose - Point of Care 172 mg/dl (70-99)
[2025-09-22] MEDS: ZOFRAN 4 MG IV (16:06)
[2025-09-22] MEDS: OFIRMEV 100 IV (16:09)
[2025-09-22 16:36] LABS: B.E. - POC -1.7 mmol/L; Blood Urea Nitrogen - POC 8 mg/dl (3-120); Chloride - POC 109 mmol/L (96-111); Creatinine - POC 0.59 mg/dl (0.3-1.0); Glucose - POC 185 mg/dl (70-99); HCO3 - POC 24 mmol/L (21-28); Hematocrit - POC 34 % PCV (37-47); Hemodilution- POC Yes; Hemoglobin Calculated - POC 11.5; Ionized Calcium - POC 1.30 mmol/L (1.15-1.33); Lactate - POC 1.19 mmol/L (0.36-0.75); O2 Saturation %Calculated-POC 97.3 % (94-98); PCO2 - POC 41 mmHg (35-48); PO2 - POC 97 mmHg (83-108); Potassium - POC 4.2 mmol/L (3.5-5.1); Sodium - POC 142 mmol/L (136-145); Specimen Type - POC Arterial; pH - POC 7.37 (7.35-7.45)
--- NOTE | 2025-09-22 16:50 | PTCARENOTE ---
Extubated to 6 L NC at 1640. Able to preform 750 on IS. Washed with CHG wipes, gown applied.
[2025-09-22 16:59] LABS: Glucose - Point of Care 145 mg/dl (70-99)
--- NOTE | 2025-09-22 17:18 | W.PN.CD ---
Addendum entered and electronically signed by Will Campos MD 09/22/25 18:14:
I reviewed and agree with the note by MIRNA Otero and it accurately reflects our care.
I saw and evaluated the patient, and I provided the substantive portion of the medical decision making. My assessment and plan is below:
45F with hypertension, prior smoking, hyperlipidemia, diabetes, and obesity who is s/p�inferior STEMI s/p PCI with JACQUE to RCA 08/10/25. Residual prox LAD disease was noted and she is now s/p CABG.
Physical exam: Awake, opens eyes to voice, follows commands, RRR, well-approximated sternal wound, [address], lungs clear anteriorly, no lower extremity edema
CAD s/p CABG: Doing well, extubated and off all drips. Continue aspirin, statin, and beta-fely. Routine postop care per CT surgery.
Ischemic cardiomyopathy: Resume GDMT as tolerated.
Cardiology will continue to follow along.
Original Note:
Today's Communication / Plan
-
Close post-op monitoring and care per CT surgery/CVICU protocol
ASA, statin, BB
Impression / Plan
-
45 year old female with hypertension, smoking (now quit),�hyperlipidemia, DM2 (recently discovered),�and obesity who is s/p�inferior STEMI s/p PCI with JACQUE to RCA 08/10/25. Required ACLS during this. Residual prox LAD disease was noted. For this,
plan is for CT surgery evaluation for revascularization and she is now s/p CABG.
CAD:
-hx STEMI with PCI to RCA 08/10/25- was on ASA/Brilinta, but Brilinta held since 09/16 for surgery
-now s/p Coronary artery bypass grafting x 4 (In situ BOWERS to LAD, Ao to RSVG to OM and diagonal sequential, Ao to RSVG to PDA), RAFI clip Dr. Hoover 09/22/25
-intra-op ELISABET EF 55-60%
-EKG and telemetry NSR
-extubated, on O2 by NC
-CT's, fang, pacer wire in place
-ASA, statin, BB
ICM EF 45-50%: resolved
-echo 07/2025: EF 45-50% with hypokinesis of the basal to apical inferior/inferoseptal valles.�Intra-op ELISABET EF 55-60%.
-monitor volume post-op
-OP meds: BB/ARB/MRA; SGLT2I and Entresto were cost prohibitive per chart.�
DM2:
-recent diagnosis
-on insulin drip post-op per protocol
Tobacco use:
-continue to remain smoke-free
HTN:
-monitor post-op
Dyslipidemia:
-statin
Physical Exam
Vital Signs/Labs
Vital Signs
Temp Pulse Resp BP Pulse Ox
98.8 F 86 0 89/62 98
09/22/25 16:57 09/22/25 17:00 09/22/25 17:00 09/22/25 17:00 09/22/25 17:00
09/21/25 09/22/25 09/23/25
06:59 06:59 06:59
Actual Weight 238 lb 5.115 oz
09/22/25 14:18
PT 18.0 Sec (11.4-14.6) H 09/22/25 14:18
INR 1.47 09/22/25 14:18
APTT 30.6 Sec (23.4-35.0) 09/22/25 14:18
Magnesium 2.7 mg/dl (1.6-2.3) H 09/22/25 14:18
Physical Exam
Constitutional: No acute distress
EENT: Anicteric
Cardiovascular: Rhythm & rate is regular
Respiratory: Respiratory effort normal, Lungs clear to auscul. and Other (on O2 by NC)
Neuro/Psych: AO x 3
Other: Skin (midsternal incision well-approximated)
Data Reviewed
-
Date of Service: September 22, 2025
EKG: Tracing Personally Visualized and interpreted (NSR)
Echo: Report Reviewed by me (ELISABET as noted)
Labs: Labs Reviewed by me
[2025-09-22] MEDS: ROXICODONE 5 MG PO (17:45)
[2025-09-22] MEDS: LOW STRENGTH ASPIRIN 81 MG PO (17:45)
[2025-09-22 18:01] LABS: Glucose - Point of Care 108 mg/dl (70-99)
[2025-09-22 18:04] LABS: Hematocrit 30.6 % (37.0-47.0); Hemoglobin 10.6 g/dL (12.0-16.0); Platelet Count 256 10^3/uL (130-400)
[2025-09-22] MEDS: DILAUDID 0.5 MG IV (18:15)
[2025-09-22] MEDS: CRESTOR PO (18:16)
--- NOTE | 2025-09-22 18:19 | PTCARENOTE ---
Pt wiggling around in bed, moaning in pain. Turned and repositioned by RN. Despite po pain medication pt continues to figit and moan out. IV dilaudid administered. will monitor.
--- NOTE | 2025-09-22 19:00 | PTCARENOTE ---
assumed care of patient @ 1900. received pt laying in bed-
Neuro- Aox3. afebrile
CV- SR on tele HR 80s. BP goal 90-110, currently 104. no edema, good pulses. V wire was inappropriately pacing earlier, currently unhooked from box.
Lungs- Lungs clear, decreased at bases on 4L satting 100 percent. no cough or sputum. 2 meds and 1 pleural chest tube to wall suction no air leak, tidaling or crepitus noted
GI- Obese round hypoactive, tolerated ice chips
- Noel present draining clear yellow urine
Skin- MSI CDI AIRCRAFT LOG CLERK, surgical bra intact CT dressing CDI, R SVG sites CDI covered with hubert wrap
Lines- R IJ cordis with swan floated to 40, L bracial A line, piv all patent. central lines zeroed, flushed.
Meds- received on insulin per protocol
pt resting with call pelayo within reach .
[2025-09-22 19:04] LABS: Glucose - Point of Care 141 mg/dl (70-99)
[2025-09-22 21:03] LABS: Glucose - Point of Care 136 mg/dl (70-99)
[2025-09-22] MEDS: ANCEF 5 IV (21:04)
[2025-09-22] MEDS: SENOKOT PO (21:11)
[2025-09-22] MEDS: TYLENOL 975 MG PO (21:57)
[2025-09-22] MEDS: PACERONE 200 MG PO (21:57)
[2025-09-22] MEDS: NEURONTIN 100 MG PO (21:58)
[2025-09-22 23:04] LABS: Glucose - Point of Care 119 mg/dl (70-99)
--- NOTE | 2025-09-22 23:07 | PTCARENOTE ---
pt resting comfortably , no acute change in assessment .
[2025-09-23] VITALS (35 sets, daily range): BP systolic 76–119; BP diastolic 44–88; PULSE 98; O2SAT 96–98; BMI 41.0
[2025-09-23] MEDS: ROXICODONE 5 MG PO ×3 (01:03→18:17)
[2025-09-23 01:08] LABS: Glucose - Point of Care 136 mg/dl (70-99)
[2025-09-23 03:13] LABS: Glucose - Point of Care 119 mg/dl (70-99)
[2025-09-23 03:29] LABS: Hematocrit 29.6 % (37.0-47.0); Hemoglobin 9.9 g/dL (12.0-16.0); Mean Corp Hgb Conc. 33.4 g/dL (33.0-37.0); Mean Corpuscular Volume 84.3 fL (81.0-99.0); Platelet Count 229 10^3/uL (130-400); Red Cell Dist. Width 13.4 % (11.5-14.5)
[2025-09-23 03:53] LABS: Blood Urea Nitrogen 13 mg/dl (7-17); Calcium 8.4 mg/dl (8.4-10.2); Carbon Dioxide 25 mmol/L (22-30); Chloride 110 mmol/L (98-107); Estimated Creatinine Clearance > 125 ml/min; Glucose 106 mg/dl (70-99); Magnesium 2.4 mg/dl (1.6-2.3); Potassium 4.2 mmol/L (3.5-5.1); Sodium 139 mmol/L (135-145); eGFR > 60.00
[2025-09-23] MEDS: DILAUDID 0.5 MG IV (04:40)
[2025-09-23] MEDS: ANCEF 5 IV ×2 (04:40→13:04)
[2025-09-23 04:58] LABS: Glucose - Point of Care 108 mg/dl (70-99)
--- NOTE | 2025-09-23 05:43 | W.PN.CARD.SR ---
Sheath/IABP Sheath Removal
Sheath Removal
Left Arterial Brachial:
Site appearance prior to sheath removal: Intact
Size of hematoma in cm: 0
Sheath removed by:: Physician printing assistant
Name of associate removing sheath: Erik Rizzo
Time of sheath removal: 05:25
Time hemostasis achieved: 05:40
Site appearance post sheath removal: Intact
Size of hematoma in cm: 0
Method of Hemostasis Post Sheath Removal: Manual Pressure
Dressing dry and intact?: Yes
Comments: no hematoma or ecchymosis. radial pulse is palpable 2+, hand is warm with sensation intact
[2025-09-23 06:22] LABS: Glucose - Point of Care 99 mg/dl (70-99)
--- NOTE | 2025-09-23 06:30 | W.PN.CT ---
Today's Communication / Plan
-
-pod #1
-no issues overnight
-CI 2.55, CO 5.37, SVR 968. Drips: insulin
-CT outputs: 2 meds 115/175, L pleur 65/105 in 12/24 hrs
-deline
-continue insulin
-d/c Noel
-current meds (ASA, Plavix, Crestor, Lopressor, Amio, Protonix)
-encourage IS, OOB
Assessment / Plan
-
- mv-CAD - s/p CABG x 4 (In situ BOWERS to LAD, Ao to RSVG to OM and diagonal sequential, Ao to RSVG to PDA); RAFI ligation by Dr. Hoover, pod #1
- Intraop ELISABET: preop normal EF without regional wall motion abnormalities and normal valves. Postprocedure the ELISABET showed EF 55 to 60% with improved contractility and no new regional wall motion abnormalities.
- STEMI with cardiac arrest 1 month ago, s/p PCI to RCA
- HTN/HLD
- DM II
- Acute postop blood loss anemia
- Acute postop atelectasis
- Acute postop hypovolemia with subsequent hypervolemia
Discussed patient care with: Nursing and Care Team
Subjective
-
Date of Service: September 22, 2025
Objective Data
-
Lab Results
09/22/25 17:57
09/22/25 14:18
PT 18.0 Sec (11.4-14.6) H 09/22/25 14:18
INR 1.47 09/22/25 14:18
APTT 30.6 Sec (23.4-35.0) 09/22/25 14:18
Vital Signs
Vital Signs
Temp Pulse Resp BP Pulse Ox
99.5 F 88 0 83/47 98
09/22/25 22:00 09/22/25 22:15 09/22/25 22:15 09/22/25 22:00 09/22/25 22:15
CT Intake/Output/Weight
09/22/25 09/22/25 09/23/25
06:59 18:59 06:59
Intake Total 263.7 / 385.7 122 / 385.7
Output Total 635 / 880 245 / 880
Balance -371.3 / -494.3 -123 / -494.3
SaO2: 98
Physical Exam
-
General: Awake and AOx3
Cardiovascular: Regular rate & rhythm, No Murmurs and Rub
Respiratory: Decreased Breath Sounds
Sternum: Stable
Incision: Clean, Dry and Intact
Extremities: Other (trace edema b/l, 1+DPs b/l)
Abdomen: soft, nontender, nondistended, +decreased abdominal sounds
Data Reviewed
-
Lab Results: Results Reviewed
Medications: Active Meds Reviewed
Chest X-Ray: Report Reviewed and Image Reviewed
ECG: Report Reviewed and Image Reviewed
[2025-09-23] MEDS: TYLENOL 975 MG PO ×3 (07:08→20:04)
[2025-09-23] MEDS: ZOFRAN 4 MG IV (07:08)
[2025-09-23 07:11] LABS: Glucose - Point of Care 125 mg/dl (70-99)
--- NOTE | 2025-09-23 07:12 | PTCARENOTE ---
brachial A line removed by CTPA. sebastián removed by this RN. pt stood to scale and to chair with steady gait. now resting comfortably in chair with call pelayo within reach .
[2025-09-23] MEDS: NOVOLIN R INSULIN INFUSION 100 IV (07:15)
--- NOTE | 2025-09-23 07:55 | W.PN.ANS.POP ---
Anesthesia Post Operative
- Anesthesia Post Op Note
Vital Signs Stable-See Nursing Note: Yes
Airway Patent: Yes
Adequate Pain Control: Yes
Change in Mental Status: No
Current Postoperative Nausea & Vomiting: No
Anesthesia Complications: No
General Anesthetic Recall: No
Unplanned Admission: No
Post Op Hydration Adequate: Yes
--- NOTE | 2025-09-23 08:00 | PTCARENOTE ---
pt received from previous RN, oriented, OOB in chair. SR on the monitor, HR 90s. V wires in place, box off. SBP 80-90s, MAPs >65. pt denies lightheadedness or dizziness. PA aware. palpable pulses, trace generalized edema. pt on 2LNC, 94-96% POX.
lungs diminished in bases. IS encouraged. CTx3, no air leak or crepitus noted. pt abdomen round, s/n, denies n/v. tolerating clears. hypoactive BS. DTV post fang removal. sternal incision CLARIBEL, approximated. surgical bra in place. chest tube site
c/d/i. RLE PAUL bandage in place. RIJ Cordis maintained. PIV. insulin gtt running as ordered. see worklist for VS, I&O, and assessment.
[2025-09-23 08:20] LABS: Glucose - Point of Care 138 mg/dl (70-99)
[2025-09-23] MEDS: PACERONE 200 MG PO ×3 (08:40→20:05)
[2025-09-23] MEDS: NOVOLOG FLEXPEN SC (08:40)
[2025-09-23] MEDS: LOW STRENGTH ASPIRIN 81 MG PO (08:40)
[2025-09-23] MEDS: PLAVIX 75 MG PO (08:40)
[2025-09-23] MEDS: NEURONTIN 100 MG PO ×3 (08:41→20:05)
[2025-09-23] MEDS: SENOKOT 8.6 MG PO ×2 (08:41→20:05)
[2025-09-23] MEDS: ROXICODONE 2.5 MG PO (08:41)
[2025-09-23] MEDS: PROTONIX 40 MG PO (08:41)
[2025-09-23] MEDS: MAGNESIUM OXIDE 400 MG PO ×2 (08:41→20:05)
[2025-09-23] MEDS: LIDOCAINE 4% PATCH 1 PATCH TOPICAL (08:42)
[2025-09-23] MEDS: BACTROBAN 2% OINTMENT 1 APPLIC NASAL ×2 (08:42→20:06)
[2025-09-23 10:11] LABS: Glucose - Point of Care 103 mg/dl (70-99)
[2025-09-23] MEDS: LR 250 ML IV ×3 (10:18→17:37)
--- NOTE | 2025-09-23 10:54 | W.PN.INTV ---
Today's Communication / Plan
Recommendations
Continue postoperative care
Follow chest tube output
Follow hemoglobin
Follow daily chest x-ray
Increase mobility as able
Sign off
Assessment
-
Assessment: 45-year-old morbidly obese female active tobacco smoker with a past medical history of hypertension and hypothyroidism history of ischemic cardiomyopathy with multivessel coronary artery disease. Prior stents in the past. Electively
admitted for surgical revascularization.
Surgery underwent on 09/22/2025.
Status postcoronary artery bypass 09/22/2025--Dr. Hoover
Postoperative mechanical ventilation
-
Conditions present prior admission:
#Inferior ST elevation ME s/p LHC with suction aspiration thrombectomy of RCA + PCI of mid RCA lesion with JACQUE x 1 placed
#Ischemic cardiomyopathy/acute HFmrEF (EF: 45-50% on left ventriculography during LHC on 08/10/2025)
#In-hospital cardiac arrest (VF arrest occurred during cardiac catheterization at the end of diagnostic portion and recurrent VF arrest during therapeutic portion)
#Multifocal pneumonia (CAP) likely due to aspiration during her cardiac arrest on 08/10/2025
#DM type II c/b hyperglycemia requiring insulin gtt
#Tobacco use disorder (carries an approximate [id number]-[id number] history, currently smoking 2 PPD; started smoking as a teenager with average use of 1 PPD; quit for 9 years at one point)
#Hypertension
#History of hypothyroidism
Plan:
Postoperative day 1
Extubated
On room air - sitting out of bed..
Encourage incentive spirometry
Increase activity as able
Analgesia with narcotics as needed-watch respiratory status closely.
Anemia noted-no evidence of acute bleeding
Follow H&H serially
Hemodynamics stable hide vasoactive drugs weaned off.
Normal renal function.
Noel in place-follow urinary output.
Chest tube with no excessive drainage-no air leak.
Chest x-ray reviewed 09/23/2025: With no pneumothorax or fluid collections.
Advance diet as tolerated
Head of the bed elevation
Glycemic control per protocol
DVT prophylaxis when safe from the surgical perspective.
No additional critical care recommendations.
Sign off
Subjective Dataa
Subjective Data
Date of Service:
Date of Service: September 23, 2025
Chief Complaint: Statistics Tutor Follow Up (Status post coronary artery bypass)
Subjective:
No overnight issues
Extubated
Denies significant pain
Review of Systems
Cardiopulmonary: Dyspnea (none at rest)
GI: Abdominal Pain (n) and Nausea (n)
Objective Data
Data Reviewed
Vital Signs / I&O / Oxygen:
Vital Signs
Temp Pulse Resp BP Pulse Ox
97.9 F 97 26 97/67 95
09/23/25 08:00 09/23/25 10:00 09/23/25 10:00 09/23/25 10:00 09/23/25 09:29
Intake and Output
09/22/25 09/23/25 09/24/25
06:59 06:59 06:59
Intake Total 597.4 / 618.5 64.1 / 64.1
Output Total 1210 / 1245 50 / 50
Balance -612.6 / -626.5 14.1 / 14.1
SaO2 [SIMV] 100
SaO2 95
Nasal Cannula flow liters per 2
minute
Physical Exam
General: Comfortable
HEENT: Normocephalic
Cardiovascular: S1-S2
Respiratory: Clear and Chest Tube (No excessive drainage, no early)
GI: Soft and Non Distended
Neurology: Awake and Alert
Skin: Warm
Labs/Micro/Reports
Lab Data
09/23/25 03:07
09/23/25 03:07
Laboratory Results
09/22/25
14:18
PT 18.0 H
INR 1.47
APTT 30.6
pH 7.37
pCO2 39 H
pO2 130 H
HCO3 22.5
O2 Delivery Level
[2025-09-23] MEDS: LOPRESSOR PO (11:17)
[2025-09-23] MEDS: NOVOLOG FLEXPEN 4 UNITS SC ×2 (11:53→17:05)
[2025-09-23 11:54] LABS: Glucose - Point of Care 121 mg/dl (70-99)
--- NOTE | 2025-09-23 12:00 | PTCARENOTE ---
pt VSS, LR bolus x1 given per PA d/t lightheadedness when standing w/ CR. OOB in chair for lunch. IS encouraged.
[2025-09-23] MEDS: NSS IV (12:08)
[2025-09-23 14:17] LABS: Glucose - Point of Care 130 mg/dl (70-99)
--- NOTE | 2025-09-23 14:40 | PTCARENOTE ---
pt able to void on BSC, claire urine, PVR 4ml. fluid intake encouraged. pt placed back to bed x2 assist. Roxicodone 5mg PO given for pain w/ decrease in pain. L pleural CT dc'd as ordered, dressing c/d/i. V wire insulated as ordered. unable to flush
ALFREDO garcia aware. RIJ Cordis dc'd as ordered, dressing c/d/i. PIV placed by VAT team. RLE PAUL bandage removed. sequentials in place, resting between care.
[2025-09-23 16:20] LABS: Glucose - Point of Care 94 mg/dl (70-99)
--- NOTE | 2025-09-23 16:30 | PTCARENOTE ---
pt VSS, pt ambulated in hallway w/ assist. OOB in chair for dinner.
[2025-09-23] MEDS: CRESTOR 40 MG PO (17:05)
[2025-09-23 18:12] LABS: Glucose - Point of Care 144 mg/dl (70-99)
--- NOTE | 2025-09-23 19:00 | PTCARENOTE ---
assumed care of patient @ 1900. received pt sitting in chair -
Neuro- Aox3. afebrile
CV- SR on tele HR 90s. no edema, good pulses. V wire insulated
Lungs- Lungs clear, decreased at bases on RA satting 95 percent. no cough or sputum. 2 meds to wall suction no air leak, tidaling or crepitus noted
GI- Obese round hypoactive, tolerated diet
- Voiding clear claire urine in hat
Skin- MSI CDI CLARIBEL, surgical bra intact CT dressing CDI, R SVG sites CDI
Lines- piv x2 patent.
Meds- received on insulin per protocol
pt resting with call pelayo within reach .
[2025-09-23] MEDS: LOPRESSOR 12.5 MG PO (20:05)
[2025-09-23] MEDS: REMOVE LIDOCAINE PATCH 1 PATCH REMOVE (20:06)
[2025-09-23 20:11] LABS: Glucose - Point of Care 123 mg/dl (70-99)
[2025-09-24] VITALS (28 sets, daily range): BP systolic 78–117; BP diastolic 54–80; BMI 41.8
[2025-09-24] MEDS: ROXICODONE 5 MG PO (00:08)
[2025-09-24 00:14] LABS: Glucose - Point of Care 92 mg/dl (70-99)
[2025-09-24 00:14] LABS: Glucose - Point of Care 120 mg/dl (70-99)
--- NOTE | 2025-09-24 00:21 | PTCARENOTE ---
pt placed on 2L for pox of 88 on RA while sleeping. otherwise pt assessment unchanged.
[2025-09-24 02:06] LABS: Glucose - Point of Care 108 mg/dl (70-99)
[2025-09-24 04:25] LABS: Glucose - Point of Care 102 mg/dl (70-99)
[2025-09-24 04:28] LABS: Hematocrit 25.7 % (37.0-47.0); Hemoglobin 8.7 g/dL (12.0-16.0); Mean Corp Hgb Conc. 33.9 g/dL (33.0-37.0); Mean Corpuscular Volume 86.0 fL (81.0-99.0); Platelet Count 215 10^3/uL (130-400); Red Cell Dist. Width 13.5 % (11.5-14.5)
[2025-09-24 04:47] LABS: Blood Urea Nitrogen 13 mg/dl (7-17); Calcium 8.3 mg/dl (8.4-10.2); Carbon Dioxide 26 mmol/L (22-30); Chloride 105 mmol/L (98-107); Estimated Creatinine Clearance > 125 ml/min; Glucose 89 mg/dl (70-99); Magnesium 2.2 mg/dl (1.6-2.3); Potassium 4.2 mmol/L (3.5-5.1); Sodium 133 mmol/L (135-145); eGFR > 60.00
--- NOTE | 2025-09-24 05:14 | PTCARENOTE ---
labs drawn and sent, pt resting comfortably , no change in assessment .
--- NOTE | 2025-09-24 05:28 | W.PN.CT ---
Addendum entered and electronically signed by Ai Hoover MD 09/24/25 12:01:
I have seen and evaluated the patient, agree with documentation below.
Doing well today. BP borderline and did require volume resus yesterday. She is off pressors and tolerating low dose BB. She is doing well ambulating without dizziness, off O2 and weight only up by 4 kg without significant edema. Will hold diuresis
given borderline BP. Continue ambulating and pulm toilet. DC pacing wires and meds.
Original Note:
Today's Communication / Plan
-
-pod #2
-no issues overnight
-orthostasis improved with IVF yesterday, BB resumed
-delined, L pl DC'd, fang out
-CT outputs: 2 meds 65/155, in 12/24 hrs
-current meds (ASA, Plavix, Crestor, Lopressor, Amio, Protonix)
-encourage IS, OOB
Assessment / Plan
-
- mv-CAD - s/p CABG x 4 (In situ BOWERS to LAD, Ao to RSVG to OM and diagonal sequential, Ao to RSVG to PDA); RAFI ligation by Dr. Hoover, pod #2
- Intraop ELISABET: preop normal EF without regional wall motion abnormalities and normal valves. Postprocedure the ELISABET showed EF 55 to 60% with improved contractility and no new regional wall motion abnormalities.
- STEMI with cardiac arrest 1 month ago, s/p PCI to RCA
- HTN/HLD
- DM II
- Acute postop blood loss anemia
- Acute postop atelectasis
- Acute postop hypovolemia with subsequent hypervolemia
Subjective
-
Date of Service: September 24, 2025
Objective Data
-
Lab Results
09/24/25 04:19
09/24/25 04:19
PT 18.0 Sec (11.4-14.6) H 09/22/25 14:18
INR 1.47 09/22/25 14:18
APTT 30.6 Sec (23.4-35.0) 09/22/25 14:18
Vital Signs
Vital Signs
Temp Pulse Resp BP Pulse Ox
98.0 F 97 16 117/74 97
09/24/25 00:00 09/24/25 05:00 09/23/25 20:00 09/24/25 05:00 09/24/25 05:00
CT Intake/Output/Weight
09/23/25 09/23/25 09/24/25
06:59 18:59 06:59
Intake Total 333.7 / 618.5 1794.1 / 1815.7 21.6 / 1815.7
Output Total 575 / 1245 365 / 630 265 / 630
Balance -241.3 / -626.5 1429.1 / 1185.7 -243.4 / 1185.7
SaO2: 97
Physical Exam
-
General: Awake and Oriented
Cardiovascular: Regular rate & rhythm, No Murmurs and No Rub
Respiratory: Clear and Equal
Sternum: Stable
Incision: Clean, Dry and Intact
Extremities: No Edema
Data Reviewed
-
Lab Results: Results Reviewed
Medications: Active Meds Reviewed
Chest X-Ray: Report Reviewed
ECG: Report Reviewed
[2025-09-24 06:31] LABS: Glucose - Point of Care 121 mg/dl (70-99)
[2025-09-24] MEDS: TYLENOL 975 MG PO ×3 (07:20→20:14)
--- NOTE | 2025-09-24 08:00 | PTCARENOTE ---
pt received from previous RN, oriented, OOB in chair. SR/ST on the monitor, HR 90-100s. V wires insulated. SBP 70-90s, MAPs >65. pt denies lightheadedness or dizziness. PA aware. palpable pulses, trace generalized edema. pt on RA, 92-97% POX. lungs
diminished in bases. IS encouraged. CTx2, no air leak or crepitus noted. pt abdomen round, s/n, denies n/v. tolerating diet. +BS, +flatus. voiding in bathroom, ambulates w/ assist. sternal incision AEROGRAPHER, approximated. surgical bra in place. chest
tube site c/d/i. RLE incision CLARIBEL. PIVx2. insulin gtt running as ordered. see worklist for VS, I&O, and assessment.
[2025-09-24 08:11] LABS: Glucose - Point of Care 128 mg/dl (70-99)
[2025-09-24] MEDS: PACERONE 200 MG PO ×3 (08:23→20:13)
[2025-09-24] MEDS: ROXICODONE 2.5 MG PO (08:23)
[2025-09-24] MEDS: MAGNESIUM OXIDE 400 MG PO ×2 (08:23→20:13)
[2025-09-24] MEDS: LIDOCAINE 4% PATCH 1 PATCH TOPICAL (08:23)
[2025-09-24] MEDS: LOW STRENGTH ASPIRIN 81 MG PO (08:23)
[2025-09-24] MEDS: NEURONTIN 100 MG PO ×3 (08:23→20:13)
[2025-09-24] MEDS: PLAVIX 75 MG PO (08:23)
[2025-09-24] MEDS: PROTONIX 40 MG PO (08:23)
[2025-09-24] MEDS: SENOKOT 8.6 MG PO ×2 (08:23→20:14)
[2025-09-24] MEDS: NOVOLOG FLEXPEN 4 UNITS SC ×2 (08:24→13:50)
[2025-09-24] MEDS: BACTROBAN 2% OINTMENT 1 APPLIC NASAL ×2 (08:24→20:16)
[2025-09-24] MEDS: GLUCOPHAGE 500 MG PO ×2 (09:17→17:07)
[2025-09-24] MEDS: LOPRESSOR 12.5 MG PO (09:17)
[2025-09-24] MEDS: NSS IV (09:28)
[2025-09-24 10:27] LABS: Glucose - Point of Care 105 mg/dl (70-99)
--- NOTE | 2025-09-24 11:44 | W.PN.UPDATE ---
Update Note
Progress Note Update
bipolar epicardial V wire removed by me without incident. pt tolerated well. bedrest x1 hour with q15 BP checks. If no significant CT output, will remove mediastinal drains as well.
--- NOTE | 2025-09-24 11:51 | PTCARENOTE ---
pt VSS, pt ambulated in hallway w/ stand by assist. voided in bathroom. pt placed back to bed, V wire pulled by PA. bedrest x1hr, q15 VS completed.
[2025-09-24 12:15] LABS: Glucose - Point of Care 112 mg/dl (70-99)
--- NOTE | 2025-09-24 14:00 | PTCARENOTE ---
pt ambulated 1hr post wire removal, no dumping from CTs. placed back to bed. Med CT x2 dc'd as ordered, dressing c/d/i. pt ambulating in hallway w/ stand by assist.
[2025-09-24 14:43] LABS: Glucose - Point of Care 92 mg/dl (70-99)
--- NOTE | 2025-09-24 15:30 | PTCARENOTE ---
pt VSS, no changes in assessment. pt ambulated in hallway. no c/o pain. IS encouraged. insulin gtt dc'd as ordered.
[2025-09-24] MEDS: NOVOLOG FLEXPEN-MODERATE RESISTANCE SC (17:05)
[2025-09-24 17:06] LABS: Glucose - Point of Care 113 mg/dl (70-99)
[2025-09-24] MEDS: CRESTOR 40 MG PO (17:07)
--- NOTE | 2025-09-24 19:30 | PTCARENOTE ---
Neuro- Aox3. afebrile
CV- SR on tele HR 90s. no edema, good pulses.
Lungs- Lungs clear, decreased at bases on RA satting 95 percent. no cough or sputum.
GI- Obese round hypoactive, tolerated diet
- Voiding clear claire urine in hat
Skin- MSI CDI CLARIBEL, surgical bra intact CT dressing CDI, R SVG sites CDI
Lines- piv x2 patent.
pt resting with call pelayo within reach .
[2025-09-24] MEDS: MUCINEX 1200 MG PO (20:12)
[2025-09-24] MEDS: LOPRESSOR 25 MG PO (20:14)
[2025-09-24] MEDS: REMOVE LIDOCAINE PATCH 1 PATCH REMOVE (20:15)
[2025-09-24] MEDS: LANTUS 0.05 UNITS SC (20:21)
[2025-09-24 20:22] LABS: Glucose - Point of Care 142 mg/dl (70-99)
[2025-09-25] VITALS (16 sets, daily range): BP systolic 85–119; BP diastolic 59–80; PULSE 102; O2SAT 96–98; BMI 41.5
[2025-09-25] MEDS: ROXICODONE 5 MG PO (04:13)
[2025-09-25 05:00] LABS: Hematocrit 23.4 % (37.0-47.0); Hemoglobin 7.9 g/dL (12.0-16.0); Mean Corp Hgb Conc. 33.8 g/dL (33.0-37.0); Mean Corpuscular Volume 86.0 fL (81.0-99.0); Platelet Count 223 10^3/uL (130-400); Red Cell Dist. Width 13.2 % (11.5-14.5)
[2025-09-25 05:27] LABS: Blood Urea Nitrogen 9 mg/dl (7-17); Calcium 7.9 mg/dl (8.4-10.2); Carbon Dioxide 24 mmol/L (22-30); Chloride 101 mmol/L (98-107); Estimated Creatinine Clearance > 125 ml/min; Glucose 126 mg/dl (70-99); Magnesium 2.2 mg/dl (1.6-2.3); Potassium 4.1 mmol/L (3.5-5.1); Sodium 131 mmol/L (135-145); eGFR > 60.00
--- NOTE | 2025-09-25 05:48 | W.PN.CT ---
Addendum entered and electronically signed by Ai Hoover MD 09/26/25 07:48:
I have seen and evaluated the patient, agree with documentation below.
BP still borderline, asymptomatic. Mobilize, try diuresis.
Original Note:
Today's Communication / Plan
-
-pod #3
-no issues overnight
-epicardial V wire removed yesterday,
-BB restarted yesterday, no dizziness but BP soft
-CTs DCd
-current meds (ASA, Plavix, Crestor, Lopressor 25 mg, Amio, Protonix)
-encourage IS, OOB
Assessment / Plan
-
- mv-CAD - s/p CABG x 4 (In situ BOWERS to LAD, Ao to RSVG to OM and diagonal sequential, Ao to RSVG to PDA); RAFI ligation by Dr. Hoover, pod #3
- Intraop ELISABET: preop normal EF without regional wall motion abnormalities and normal valves. Postprocedure the ELISABET showed EF 55 to 60% with improved contractility and no new regional wall motion abnormalities.
- STEMI with cardiac arrest 1 month ago, s/p PCI to RCA
- HTN/HLD
- DM II
- Acute postop blood loss anemia
- Acute postop atelectasis
- Acute postop hypovolemia with subsequent hypervolemia
Subjective
-
Date of Service: September 25, 2025
Objective Data
-
Lab Results
09/25/25 04:46
09/25/25 04:46
PT 18.0 Sec (11.4-14.6) H 09/22/25 14:18
INR 1.47 09/22/25 14:18
APTT 30.6 Sec (23.4-35.0) 09/22/25 14:18
Vital Signs
Vital Signs
Temp Pulse Resp BP Pulse Ox
98 F 96 16 107/72 97
09/24/25 20:40 09/24/25 20:30 09/24/25 20:40 09/24/25 20:13 09/24/25 20:40
CT Intake/Output/Weight
09/24/25 09/24/25 09/25/25
06:59 18:59 06:59
Intake Total 21.6 / 1819.2 744.5 / 744.5
Output Total 635 / 1000 630 / 830 200 / 830
Balance -613.4 / 819.2 114.5 / -85.5 -200 / -85.5
SaO2: 97
Physical Exam
-
General: Awake and Oriented
Cardiovascular: Regular rate & rhythm, No Murmurs and No Rub
Respiratory: Clear and Equal
Sternum: Stable
Incision: Clean, Dry and Intact
Extremities: No Edema and No Erythema
Data Reviewed
-
Lab Results: Results Reviewed
Medications: Active Meds Reviewed
Chest X-Ray: Report Reviewed
ECG: Report Reviewed
[2025-09-25] MEDS: TYLENOL 975 MG PO ×3 (07:16→23:50)
--- NOTE | 2025-09-25 08:00 | PTCARENOTE ---
Assumed care of patient. Walking rounds completed with previous RN. Pt assessed while she was sitting in the chair. Pt alert and oriented x4. Denies pain, shortness of breath, and nausea. SALAS with equal strength throughout. Standby assist to stand
from the chair and ambulate to the bathroom. ST on tele with rates in the low 100s. BP 105/64. Bilateral radial and DP pulses weakly palpable. +1 edema to b/l lower extremities. POX 96% on RA. Lungs diminished in the bases. Occasional productive
cough with clear sputum as per patient. IS encouraged-750mL achieved. Abdomen soft, round, obese, nontender. +BS. Pt reports passing gas. Tolerating meals. Pt voiding claire urine in the toilet, missed hat. Sternal incision approximated with skin
glue, RAILROAD MAINTENANCE CLERK. Old chest tube dressing CDI. Right groin puncture site approximated, RAILROAD MAINTENANCE CLERK. Right SVG harvest site approximated, CLARIBEL. PIV x2 intact. See MAR for medication administration. See worklist for complete nursing assessment. Plan of care reviewed
and patient in agreement.
[2025-09-25 08:01] LABS: Glucose - Point of Care 132 mg/dl (70-99)
[2025-09-25] MEDS: NOVOLOG FLEXPEN-MODERATE RESISTANCE SC ×2 (08:25→12:43)
[2025-09-25] MEDS: BACTROBAN 2% OINTMENT 1 APPLIC NASAL ×2 (08:26→23:47)
[2025-09-25] MEDS: LIDOCAINE 4% PATCH 1 PATCH TOPICAL (08:26)
[2025-09-25] MEDS: LASIX 40 MG IV (08:26)
[2025-09-25] MEDS: LOW STRENGTH ASPIRIN 81 MG PO (08:27)
[2025-09-25] MEDS: SENOKOT 8.6 MG PO ×2 (08:27→23:48)
[2025-09-25] MEDS: NEURONTIN 100 MG PO ×3 (08:27→23:49)
[2025-09-25] MEDS: PROTONIX 40 MG PO (08:27)
[2025-09-25] MEDS: PLAVIX 75 MG PO (08:27)
[2025-09-25] MEDS: GLUCOPHAGE 500 MG PO ×2 (08:27→16:41)
[2025-09-25] MEDS: TOPROL XL 25 MG PO (08:27)
[2025-09-25] MEDS: PACERONE 200 MG PO ×3 (08:27→23:49)
[2025-09-25] MEDS: MUCINEX 1200 MG PO ×2 (08:27→23:48)
[2025-09-25] MEDS: NSS IV (08:28)
[2025-09-25] MEDS: MAGNESIUM OXIDE 400 MG PO ×2 (08:28→23:47)
[2025-09-25] MEDS: CALCIUM GLUCONATE 100 IV (08:43)
--- NOTE | 2025-09-25 10:06 | CM ---
Reviewed chart. Met with Miss Del Cid and her father to review discharge plans. She states she is feeling okay. She states she has been residing, in [place], [place] with her grandmother in a two story home with a ramp to enter. She states
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 Grandmother can transfer with a transfer board. He father and mother came in from [place] to assist in her care, but her mother got an injury while her and the mother
is getting [facility] with [facility] and home care. 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 Her father is currently working as the learning program manager while she is recovering from surgery.
He will also be staying in the apartment above the bar. She states she has friends that she can call to assist in her care if needed. Her father also states he will be available to assist in her care also. We reviewed a home visit by the
Transitional Care Nurse. She is agreeable to a home visit. The address for the apartment is [address] [place] [address]. Medical work-up in progress. The discharge plan is to return to the apartment with father and supportive friends with
a home visit by the Transitional Care Nurse when medically stable.
[2025-09-25 12:45] LABS: Glucose - Point of Care 135 mg/dl (70-99)
--- NOTE | 2025-09-25 12:45 | PTCARENOTE ---
Pt reassessed. ST with rates in the low 100s. BP 85/59. Pt denies dizziness and lightheadedness. States she feels 'tired'. POX 99% on RA. Surgical sites stable. Ambulated in the moreira with standby assist, tolerated. Pt voiding adequate amounts of
clear yellow urine. No other acute changes from previous assessment.
--- NOTE | 2025-09-25 13:12 | PN.CDI ---
CDI
- -
CDI:
Physician Documentation Request
Admit Date: 09/22/25 04:55
Dear Doctor Sneha
Operative note diagnosis includes 'Multivessel Coronary Artery Disease with prior STEMI and angina'
Please provide further specificity to the patients angina:
unstable angina
refractory angina
Stable
Other
Use of terms such as suspected, likely, concern for, or probable (associated with a specific diagnosis that is being evaluated, monitored, or treated as if it exists) are acceptable and can be coded in the inpatient setting, when documented at the
time of discharge.
Thank you,
Danna Chew RN, BSN
CDI Specialist
tiger text
Please use your independent medical judgment in providing your response.
--- NOTE | 2025-09-25 13:21 | W.PN.UPDATE ---
Update Note
Progress Note Update
CDI: Unstable angina
[2025-09-25] MEDS: NOVOLOG FLEXPEN-MODERATE RESISTANCE 1 UNITS SC (16:26)
[2025-09-25 16:29] LABS: Glucose - Point of Care 150 mg/dl (70-99)
--- NOTE | 2025-09-25 16:30 | PTCARENOTE ---
Pt reassessed. SR-ST 90s-100s. BP 86/66, CT LAND DEGRADATION ANALYST notified, orders to hold IV lasix. Denies dizziness. Pt rates sternal pain /, refuses pain medication. Labs obtained. Pt ambulating in the moreira with standby assistance.
[2025-09-25] MEDS: LASIX IV (16:39)
[2025-09-25] MEDS: CRESTOR 40 MG PO (16:42)
[2025-09-25 16:57] LABS: Hematocrit 24.0 % (37.0-47.0); Hemoglobin 8.1 g/dL (12.0-16.0); Mean Corp Hgb Conc. 33.8 g/dL (33.0-37.0); Mean Corpuscular Volume 84.8 fL (81.0-99.0); Platelet Count 249 10^3/uL (130-400); Red Cell Dist. Width 13.2 % (11.5-14.5)
[2025-09-25 17:10] LABS: Blood Urea Nitrogen 10 mg/dl (7-17); Calcium 8.1 mg/dl (8.4-10.2); Carbon Dioxide 25 mmol/L (22-30); Chloride 98 mmol/L (98-107); Estimated Creatinine Clearance > 125 ml/min; Glucose 137 mg/dl (70-99); Potassium 4.1 mmol/L (3.5-5.1); Sodium 129 mmol/L (135-145); eGFR > 60.00
[2025-09-25] MEDS: FLEXBUMIN 100 IV (17:28)
[2025-09-25] MEDS: LASIX 20 MG IV (19:11)
--- NOTE | 2025-09-25 21:30 | PTCARENOTE ---
Report received from BENEDICTO Jeffery. Walking rounds done. Pt assessed. VS done. Pt awake, alert, oriented x 4. Speech clear. Helped to BR to void clear, yellow urine. Pt in SR. SBP 90-100's. Denies lightheadedness, dizziness when walking, and with
position change. Audible heart tones. Weak radial and DP pulses. For wound assessments, see flowsheets. Surgibra intact. Belly soft, nontender, obese. Hypoactive bs x 4. Reports passing flatus. No BM yet. Ongoing plan of care.
--- NOTE | 2025-09-25 23:30 | PTCARENOTE ---
Pt helped to BR. C/O dizziness when sitting up to side of bed x 1. None with standing and walking. Scheduled meds given. HS glucose 143. CHG bath given. Dressing change done to old CT site. Pt going to bed for evening. Remains in SR. Sats on 2L/NC
are 95-96%.
[2025-09-25 23:46] LABS: Glucose - Point of Care 143 mg/dl (70-99)
[2025-09-25] MEDS: REMOVE LIDOCAINE PATCH 1 PATCH REMOVE (23:48)
[2025-09-25] MEDS: KCL 40 MEQ PO (23:48)
[2025-09-25] MEDS: LANTUS 0.05 UNITS SC (23:49)
[2025-09-26] VITALS (16 sets, daily range): BP systolic 91–122; BP diastolic 56–80; PULSE 84; O2SAT 100; BMI 41.0
[2025-09-26] MEDS: FLEXBUMIN 100 IV ×2 (01:32→09:34)
--- NOTE | 2025-09-26 02:30 | PTCARENOTE ---
Pt given Albumin 25% scheduled. Remains in SR. 2L/NC. Sats 95-97%. Sleeping.
--- NOTE | 2025-09-26 05:04 | PTCARENOTE ---
Labs drawn and sent. VS done. See flowsheet. Pt helped to BR to void 900 mls. Pt weighed on standing scale. Pt helped to bed, then to chair per request.
[2025-09-26 05:09] LABS: Hematocrit 22.0 % (37.0-47.0); Hemoglobin 7.4 g/dL (12.0-16.0); Mean Corp Hgb Conc. 33.6 g/dL (33.0-37.0); Mean Corpuscular Volume 85.6 fL (81.0-99.0); Platelet Count 231 10^3/uL (130-400); Red Cell Dist. Width 13.2 % (11.5-14.5)
[2025-09-26 05:35] LABS: Blood Urea Nitrogen 8 mg/dl (7-17); Calcium 8.6 mg/dl (8.4-10.2); Carbon Dioxide 25 mmol/L (22-30); Chloride 98 mmol/L (98-107); Estimated Creatinine Clearance 122 ml/min; Glucose 127 mg/dl (70-99); Magnesium 2.3 mg/dl (1.6-2.3); Potassium 3.9 mmol/L (3.5-5.1); Sodium 134 mmol/L (135-145); eGFR > 60.00
--- NOTE | 2025-09-26 06:00 | W.PN.CT ---
Today's Communication / Plan
-
Plan:
-No major issues overnight. Hemodynamically and neurologically intact
-Off all drips
-BP has been soft postop
-H/h 7.4 today, will transfuse and diurese. Did receive albumin yesterday, wt up 4lb from preop. C/O dizziness when OOB
-Cont. current meds (ASA, Plavix, Crestor, Toprol XL, Amio, Protonix)
-Encourage use of IS
-Will change 2-view cxr for tomorrow
-OOB into chair
-Home likely tomorrow
Assessment / Plan
-
- mv-CAD - s/p CABG x 4 (In situ BOWERS to LAD, Ao to RSVG to OM and diagonal sequential, Ao to RSVG to PDA); RAFI ligation by Dr. Hoover, pod #4
- Intraop ELISABET: preop normal EF without regional wall motion abnormalities and normal valves. Postprocedure the ELISABET showed EF 55 to 60% with improved contractility and no new regional wall motion abnormalities.
- STEMI with cardiac arrest 1 month ago, s/p PCI to RCA
- HTN/HLD
- DM II
- Acute postop blood loss anemia (will transfuse 1u PRBC 09/26/25)
- Acute postop hypotension
- Acute postop atelectasis
- Acute postop hypovolemia with subsequent hypervolemia
- Acute postop hyponatremia
Discussed patient care with: Cardiology, Nursing, Respiratory Therapy, Pharmacy and Care Team
Subjective
-
Date of Service: September 26, 2025
Pt c/o mild incisional pain and dizziness when OOB
Objective Data
-
Lab Results
09/26/25 04:52
09/26/25 04:52
PT 18.0 Sec (11.4-14.6) H 09/22/25 14:18
INR 1.47 09/22/25 14:18
APTT 30.6 Sec (23.4-35.0) 09/22/25 14:18
Vital Signs
Vital Signs
Temp Pulse Resp BP Pulse Ox
98.4 F 83 17 105/66 95
09/26/25 04:16 09/26/25 04:16 09/26/25 04:16 09/26/25 04:16 09/26/25 04:16
CT Intake/Output/Weight
09/25/25 09/25/25 09/26/25
06:59 18:59 06:59
Intake Total 580 / 580
Output Total 650 / 1280 1525 / 3995 2470 / 3995
Balance -650 / -535.5 -945 / -3415 -2470 / -3415
SaO2: 95 (RA)
Physical Exam
-
General: Awake, Oriented and AOx3
Cardiovascular: Regular rate & rhythm, No Murmurs, No Rub and No Gallop
Respiratory: Decreased Breath Sounds (at bases, otherwise clear )
Sternum: Stable
Incision: Clean, Dry, Intact and Dressing Intact
Extremities: Other (+trace edema)
Data Reviewed
-
Lab Results: Results Reviewed
Medications: Active Meds Reviewed
Chest X-Ray: Report Reviewed and Image Reviewed
ECG: Report Reviewed and Image Reviewed
[2025-09-26] MEDS: TYLENOL 975 MG PO ×3 (06:49→23:03)
--- NOTE | 2025-09-26 08:00 | PTCARENOTE ---
1 unit PRBC finished infusing. Pt tolerated. No s/s reaction.
[2025-09-26 08:47] LABS: Glucose - Point of Care 138 mg/dl (70-99)
--- NOTE | 2025-09-26 09:15 | PTCARENOTE ---
Resumed care of patient. Walking rounds completed with previous RN. Pt assessed while she was sitting in the chair. Pt alert and oriented x4. Pt rates pain 1/10 at sternal incision. Denies shortness of breath and nausea. SALAS with equal strength
throughout. Standby assist to ambulate in the room. SR on tele with rates in the 80s. BP 95/67. Bilateral radial pulses palpable. Bilateral DP pulses weakly palpable. Bilateral lower extremity edema +1. POX 99% on RA. Lungs diminished in the bases.
IS encouraged-750mL achieved. Abdomen soft, round, obese, nontender. +BS. Tolerating food, states her 'taste buds are different than normal'. Voiding claire urine in the toilet. Sternal incision approximated, CLARIBEL. Old chest tube sites AD OPERATIONS SPECIALIST. Right
groin and Right SVG sites approximated, AD OPERATIONS SPECIALIST. Right AC PIV leaking, dressing changed. Left wrist 22g PIV tender to flush, d/c. New left AC 20g PIV placed. See MAR for medication administration. See worklist for complete nursing assessment. Plan of
care reviewed and patient in agreement.
[2025-09-26] MEDS: NOVOLOG FLEXPEN-MODERATE RESISTANCE SC ×2 (09:33→17:04)
[2025-09-26] MEDS: LIDOCAINE 4% PATCH 1 PATCH TOPICAL (09:34)
[2025-09-26] MEDS: BACTROBAN 2% OINTMENT 1 APPLIC NASAL (09:34)
[2025-09-26] MEDS: KCL 40 MEQ PO ×2 (09:35→20:52)
[2025-09-26] MEDS: PACERONE 400 MG PO ×3 (09:35→23:02)
[2025-09-26] MEDS: TOPROL XL 12.5 MG PO ×2 (09:35→20:53)
[2025-09-26] MEDS: LOW STRENGTH ASPIRIN 81 MG PO (09:35)
[2025-09-26] MEDS: SENOKOT 8.6 MG PO ×2 (09:35→20:53)
[2025-09-26] MEDS: MUCINEX 1200 MG PO ×2 (09:35→20:52)
[2025-09-26] MEDS: PROTONIX 40 MG PO (09:36)
[2025-09-26] MEDS: NSS IV (09:36)
[2025-09-26] MEDS: NEURONTIN 100 MG PO ×3 (09:36→23:02)
[2025-09-26] MEDS: GLUCOPHAGE 500 MG PO ×2 (09:36→17:27)
[2025-09-26] MEDS: PLAVIX 75 MG PO (09:36)
--- NOTE | 2025-09-26 11:28 | CM ---
Reviewed chart. Met with Miss Del Cid and her father to review discharge plans. She states she is feeling better. She states she maybe able to go home soon. She states she is planning on going to the apartment in [place], [place]. We reviewed a home
visit by the Transitional Care Nurse. Also reviewed VNA P.T for after TCRN visit. Her father states he will be around to check on her. Medical work-up in progress. The discharge plan is to go to the apartment with her father checking on her and
a home visit by the Transitional Care Nurse when medically stable.
[2025-09-26] MEDS: CALCIUM GLUCONATE 130 MG IV ×2 (11:35→20:52)
[2025-09-26] MEDS: LASIX 40 MG IV (11:35)
--- NOTE | 2025-09-26 11:45 | PTCARENOTE ---
Pt reassessed. Pt sitting up in the chair with family at bedside. SR with rates in the 80s. BP 98/66. POX 96% on RA. Surgical sites stable. Denies pain. No other acute changes.
[2025-09-26] MEDS: NOVOLOG FLEXPEN-MODERATE RESISTANCE 1 UNITS SC (12:05)
[2025-09-26 12:07] LABS: Glucose - Point of Care 166 mg/dl (70-99)
--- NOTE | 2025-09-26 13:28 | W.PN.CD ---
Today's Communication / Plan
-
- PRBC and albumin infusion and then diuresis
- Continue ASA, Plavix, Crestor, Toprol XL, Amio
Impression / Plan
-
45 year old female with hypertension, smoking (now quit),�hyperlipidemia, DM2 (recently discovered),�and obesity who is s/p�inferior STEMI s/p PCI with JACQUE to RCA 08/10/25. Required ACLS during this. Residual prox LAD disease was noted. For this,
plan is for CT surgery evaluation for revascularization and she is now s/p CABG.
CAD:
-hx STEMI with PCI to RCA 08/10/25- was on ASA/Brilinta, but Brilinta held since 09/16 for surgery
-now s/p Coronary artery bypass grafting x 4 (In situ BOWERS to LAD, Ao to RSVG to OM and diagonal sequential, Ao to RSVG to PDA), RAFI clip Dr. Hoover 09/22/25
-intra-op ELISABET EF 55-60%
-EKG and telemetry NSR
-anemic - s/p PRBC and albumin infusing.
- on O2 by NC
-CT's, fang, pacer wire in place
-ASA, statin, BB
ICM EF 45-50%: resolved
-echo 07/2025: EF 45-50% with hypokinesis of the basal to apical inferior/inferoseptal valles.�Intra-op ELISABET EF 55-60%.
-monitor volume post-op
-OP meds: BB/ARB/MRA; SGLT2I and Entresto were cost prohibitive per chart.�
DM2:
-recent diagnosis
-on insulin drip post-op per protocol
Tobacco use:
-continue to remain smoke-free
HTN:
-monitor post-op
Dyslipidemia:
-statin
Physical Exam
Vital Signs/Labs
Vital Signs
Temp Pulse Resp BP Pulse Ox
97.4 F 101 16 98/66 96
09/26/25 11:41 09/26/25 12:00 09/26/25 11:41 09/26/25 11:41 09/26/25 11:41
09/25/25 09/26/25 09/27/25
06:59 06:59 06:59
Actual Weight 111.3 kg 110 kg
09/26/25 04:52
09/26/25 04:52
PT 18.0 Sec (11.4-14.6) H 09/22/25 14:18
INR 1.47 09/22/25 14:18
APTT 30.6 Sec (23.4-35.0) 09/22/25 14:18
Magnesium 2.3 mg/dl (1.6-2.3) 09/26/25 04:52
Physical Exam
Constitutional: No acute distress and Comfortable
EENT: Anicteric and Moist mucous membranes
Cardiovascular: Rhythm & rate is regular, Pedal edema is absent and JVD pressure is normal
Respiratory: Respiratory effort normal, Lungs clear to auscul. and Wheeze Absent
GI: Soft, Normal bowel sounds and Distention present
Neuro/Psych: Alert and Oriented
Data Reviewed
-
Date of Service: September 26, 2025
Medical Decision Making: Reviewed Test Results, Test Interpretation and Review of Case with other Provider
EKG: Tracing Personally Visualized and interpreted
X-Ray/CT/US/MRI/NUC/PET: Image Personally Visualized and interpreted
Labs: Labs Reviewed by me
Old Records: Reviewed
--- NOTE | 2025-09-26 16:20 | PTCARENOTE ---
Pt reassessed. Ambulating in the halls with standby assist. VSS. SR with rates in the 80s. BP 122/80. POX 99%. Surgical sites stable. Pt denies dizziness, pain. Voiding adequate amounts of clear yellow urine in the toilet. No acute changes.
[2025-09-26 17:04] LABS: Glucose - Point of Care 113 mg/dl (70-99)
[2025-09-26] MEDS: CRESTOR 40 MG PO (17:27)
[2025-09-26] MEDS: REMOVE LIDOCAINE PATCH 1 PATCH REMOVE (20:53)
--- NOTE | 2025-09-26 21:00 | PTCARENOTE ---
Report received from BENEDICTO Jeffery. Walking rounds done. Pt awake, alert, oriented x 4. Speech clear. Equal strength x 4 extremities. Room air in chair: sats 96-97%. In bed, 2L/NC applied. Sats 98-99%. BBS present. Decreased B bases. CDB, IS
encouraged. Audible heart tones. BP 96-100's systolic. Ca Gluc 3 GM IV given per order. Pt in SR. For pulse and wound assessments, see flowsheets. Belly soft, nontender. Obese. No BM yet. Hypoactive bs x 4. Helped to BR , 1-RN assist, to void 450
clear, yellow urine. Pt helped back to bed. Sternal incision tender. States she prefers her scheduled Tylenol and gabapentin for pain. Ongoing plan of care.
[2025-09-26 22:59] LABS: Glucose - Point of Care 130 mg/dl (70-99)
[2025-09-26] MEDS: LANTUS 0.05 UNITS SC (23:01)
--- NOTE | 2025-09-26 23:30 | PTCARENOTE ---
Pt given CHG bath. Gown changed, leads changed. VS recorded. Helped to BR to void. Pt back in bed. Attempting to go to sleep. Remains in SR. Sats on 2L/NC are 99%.
[2025-09-27 02:00] VITALS: BP 119/79
[2025-09-27 02:06] VITALS: BMI 40.9
--- NOTE | 2025-09-27 03:30 | PTCARENOTE ---
Helped to BR, had very small, formed, brown BM. Voided. Pt weighed on standing scale. Labs drawn and sent. VS recorded. See flowsheet.
[2025-09-27 04:01] LABS: Hematocrit 24.1 % (37.0-47.0); Hemoglobin 8.0 g/dL (12.0-16.0); Mean Corp Hgb Conc. 33.2 g/dL (33.0-37.0); Mean Corpuscular Volume 84.9 fL (81.0-99.0); Platelet Count 257 10^3/uL (130-400); Red Cell Dist. Width 13.3 % (11.5-14.5)
[2025-09-27 04:29] LABS: Blood Urea Nitrogen 8 mg/dl (7-17); Calcium 9.3 mg/dl (8.4-10.2); Carbon Dioxide 23 mmol/L (22-30); Chloride 103 mmol/L (98-107); Estimated Creatinine Clearance > 125 ml/min; Glucose 118 mg/dl (70-99); Magnesium 1.9 mg/dl (1.6-2.3); Potassium 4.5 mmol/L (3.5-5.1); Sodium 134 mmol/L (135-145); eGFR > 60.00
--- NOTE | 2025-09-27 05:47 | W.PN.CT ---
Today's Communication / Plan
-
Plan:
-No major issues overnight. Hemodynamically and neurologically intact
-Off all drips
-BP has been soft postop, improved, however will not tolerated home dose of 50 mg Qdaily, will send home on 25 Qdaily. Hold on home dose Valsartan and Isosorbide Mononitrate
-Received 1u PRBC yesterday 09/26 for h/h 7.4/22, stable @ 8.0/24.1 today. Dizziness has resolved
-Cont. current meds (ASA, Plavix, Crestor, Toprol XL, Amio, Protonix)
-Encourage use of IS
-F/U 2-view cxr
-OOB into chair/Ambulate
-Home today
Assessment / Plan
-
- mv-CAD - s/p CABG x 4 (In situ BOWERS to LAD, Ao to RSVG to OM and diagonal sequential, Ao to RSVG to PDA); RAFI ligation by Dr. Hoover, pod #5
- Intraop ELISABET: preop normal EF without regional wall motion abnormalities and normal valves. Postprocedure the ELISABET showed EF 55 to 60% with improved contractility and no new regional wall motion abnormalities.
- STEMI with cardiac arrest 1 month ago, s/p PCI to RCA
- HTN/HLD
- DM II
- Acute postop blood loss anemia (will transfuse 1u PRBC 09/26/25)
- Acute postop hypotension
- Acute postop atelectasis
- Acute postop hypovolemia with subsequent hypervolemia
- Acute postop hyponatremia
Discussed patient care with: Cardiology, Nursing, Respiratory Therapy, Pharmacy and Care Team
Subjective
-
Date of Service: September 27, 2025
Pt c/o mild incisional pain, otherwise feels well. Dizziness has resolved, ambulating without difficulty
Objective Data
-
Lab Results
09/27/25 03:23
09/27/25 03:23
PT 18.0 Sec (11.4-14.6) H 09/22/25 14:18
INR 1.47 09/22/25 14:18
APTT 30.6 Sec (23.4-35.0) 09/22/25 14:18
Vital Signs
Vital Signs
Temp Pulse Resp BP Pulse Ox
97.6 F 73 16 119/79 99
09/27/25 02:00 09/27/25 04:00 09/27/25 02:00 09/27/25 02:00 09/27/25 02:00
CT Intake/Output/Weight
09/26/25 09/26/25 09/27/25
06:59 18:59 06:59
Intake Total 1200 / 1630 430 / 1630
Output Total 2470 / 3995 2775 / 4025 1250 / 4025
Balance -2470 / -3415 -1575 / -2395 -820 / -2395
SaO2: 99 (RA)
Physical Exam
-
General: Awake, Oriented and AOx3
Cardiovascular: Regular rate & rhythm, No Murmurs, No Rub and No Gallop
Respiratory: Decreased Breath Sounds (at bases, otherwise clear)
Sternum: Stable
Incision: Clean, Dry, Intact and Dressing Intact
Extremities: No Edema
Data Reviewed
-
Lab Results: Results Reviewed
Medications: Active Meds Reviewed
Chest X-Ray: Report Reviewed and Image Reviewed
ECG: Report Reviewed and Image Reviewed
[2025-09-27 05:48] VITALS: BP 102/66
[2025-09-27] MEDS: TYLENOL 975 MG PO (05:50)
--- NOTE | 2025-09-27 05:53 | PTCARENOTE ---
Pt helped to chair. VS done. Tylenol given as scheduled.
[2025-09-27 06:00] VITALS: BMI 40.9
[2025-09-27 08:06] VITALS: BP 99/67
[2025-09-27 08:06] LABS: Glucose - Point of Care 130 mg/dl (70-99)
--- NOTE | 2025-09-27 08:21 | W.PN.CD ---
Today's Communication / Plan
-
- Stable for discharge
- Need Lasix at home and labs within a week.
Impression / Plan
-
45 year old female with hypertension, smoking (now quit),�hyperlipidemia, DM2 (recently discovered),�and obesity who is s/p�inferior STEMI s/p PCI with JACQUE to RCA 08/10/25. Required ACLS during this. Residual prox LAD disease was noted. For this,
plan is for CT surgery evaluation for revascularization and she is now s/p CABG.
CAD:
-hx STEMI with PCI to RCA 08/10/25- was on ASA/Brilinta, but Brilinta held since 09/16 for surgery
-now s/p Coronary artery bypass grafting x 4 (In situ BOWERS to LAD, Ao to RSVG to OM and diagonal sequential, Ao to RSVG to PDA), RAFI clip Dr. Hoover 09/22/25
-intra-op ELISABET EF 55-60%
-EKG and telemetry NSR
- s/p PRBC and albumin - stable now.
- Still 2+ edema/
- Room air now.
-CT's, irwin fang removed.
-ASA, statin, BB
ICM EF 45-50%: resolved
-echo 07/2025: EF 45-50% with hypokinesis of the basal to apical inferior/inferoseptal valles.�Intra-op ELISABET EF 55-60%.
-monitor volume post-op
-OP meds: BB/ARB/MRA; SGLT2I and Entresto were cost prohibitive per chart.�
DM2:
-recent diagnosis
-on insulin drip post-op per protocol
Tobacco use:
-continue to remain smoke-free
HTN:
-monitor post-op
Dyslipidemia:
-statin
Physical Exam
Vital Signs/Labs
Vital Signs
Temp Pulse Resp BP Pulse Ox
97.6 F 76 16 102/66 99
09/27/25 05:48 09/27/25 05:48 09/27/25 02:00 09/27/25 05:48 09/27/25 05:59
09/26/25 09/27/25 09/28/25
06:59 06:59 06:59
Actual Weight 110 kg 109.8 kg
09/27/25 03:23
09/27/25 03:23
PT 18.0 Sec (11.4-14.6) H 09/22/25 14:18
INR 1.47 09/22/25 14:18
APTT 30.6 Sec (23.4-35.0) 09/22/25 14:18
Magnesium 1.9 mg/dl (1.6-2.3) 09/27/25 03:23
Physical Exam
Constitutional: No acute distress and Comfortable
EENT: Anicteric and Moist mucous membranes
Cardiovascular: Rhythm & rate is regular, Systolic murmur absent, Pedal edema present and JVD present
Respiratory: Respiratory effort normal, Wheeze Absent and Crackles Absent
GI: Soft, Non tender and Normal bowel sounds
Neuro/Psych: Alert, Oriented and AO x 3
Other: Skin
Data Reviewed
-
Date of Service: September 27, 2025
Medical Decision Making: Reviewed Test Results, Test Interpretation and Review of Case with other Provider
EKG: Tracing Personally Visualized and interpreted
Echo: Report Reviewed by me
Labs: Labs Reviewed by me
Old Records: Reviewed
[2025-09-27] MEDS: NOVOLOG FLEXPEN-MODERATE RESISTANCE SC (08:43)
[2025-09-27] MEDS: LASIX 40 MG IV (08:53)
[2025-09-27] MEDS: LIDOCAINE 4% PATCH 1 PATCH TOPICAL (08:53)
[2025-09-27] MEDS: SENOKOT 8.6 MG PO (08:54)
[2025-09-27] MEDS: TOPROL XL 25 MG PO (08:54)
[2025-09-27] MEDS: PLAVIX 75 MG PO (08:54)
[2025-09-27] MEDS: PROTONIX 40 MG PO (08:54)
[2025-09-27] MEDS: NEURONTIN 100 MG PO (08:54)
[2025-09-27] MEDS: MUCINEX 1200 MG PO (08:54)
[2025-09-27] MEDS: PACERONE 200 MG PO (08:54)
[2025-09-27] MEDS: GLUCOPHAGE 500 MG PO (08:55)
[2025-09-27] MEDS: LOW STRENGTH ASPIRIN 81 MG PO (08:55)
[2025-09-27 09:32] VITALS: BP 112/70
--- NOTE | 2025-09-27 09:32 | PTCARENOTE ---
Patient received from hourly shift manager RN; AAOx3, responds spontaneously to RN and follows commands; VSS; NSR on monitor; +2 B/L LE edema; +2 radial pulses and +1 DP pulses; Shallow respirations; Lungs diminished at bases; Occasional, productive cough
with clear, thin sputum; SpO2 98-100% on RA; Patient urinating clear, claire urine; Patient with hard BM this AM - wants scheduled laxative; Surgical wounds intact; PIVx2; 2 view CXR completed; See nursing documentation for further information;
[2025-09-27 09:39] VITALS: BP 114/70
[2025-09-27 09:52] VITALS: BP 112/72; BP 114/70; PULSE 83; O2SAT 94; O2SAT 98
--- NOTE | 2025-09-27 10:38 | W.DCSUMMARY ---
Discharge Summary
Discharge Data
Date of Admission: 09/22/25
Date of Discharge: 09/27/25
-
Pending Results: No
Hospital Course
Primary care physician: Adrianna Bird
Outpatient computational biologist: Librado Wang
Inpatient consultants: [facility] cardiology, pulmonary kayak maker
Procedures:
1. CABG, left atrial appendage clip
Primary Diagnosis:
1. multivessel coronary disease
Secondary Diagnoses:
1. STEMI with cardiac arrest 1 month ago, s/p PCI to RCA
2. HTN
3. HLD
4. T2 diabetes (A1C 8.2)
- Acute postop blood loss anemia (1u PRBC 09/26/25)
- Acute postop hypotension
- Acute postop pulmonary insufficiency
- Acute postop hypovolemia with subsequent hypervolemia
- Acute postop hyponatremia
HPI: 45-year-old female with a limited 10/23/2024 for CABG due to multivessel coronary disease. She had history of STEMI with V-fib during left heart cath 1 month prior and received a drug-eluting stent to the right coronary artery.
Hospital course: Patient was taken to the operating room and underwent a CABG x 4 with BOWERS to LAD, SVG to PDA, SVG to OM and sequenced to the diagonal, and left atrial appendage #35mm clip by Dr. Ai Hoover. For further details, please see
operative note. Patient received no intraoperative blood products and returned to CVICU on Levophed, Precedex, and insulin. Patient was extubated at 1640 the day of surgery. On postoperative day 1, patient was delined and Noel removed. Patient's
blood pressure remained low normal and diuretics held. On postoperative day #2, temporary pacing wires were removed and chest tube discontinued. On post op day #4, patient received 1 packed RBC for hemoglobin 7.4, followed by diuresis. Home
insulin regimen was reinstituted. Patient remained with lower normal range blood pressure and spironolactone and valsartan were not resumed. Patient experienced no dysrhythmia postoperatively and amiodarone was discontinued on discharge. Patient
is sent home with as needed Lasix prescription for weight gain of more than 2 pounds in a day or 5 pounds in 1 week.
Home medication changes:
STOP Spironolactone, Brilinta, valsartan, Imdur
Metoprolol decreased from 50 to 25mg daily
Discharge Plan
-
Patient Disposition: Home (Routine Discharge)
Discharge Diagnosis/Procedures: CABG x 4, left atrial appendage clip (09/22/25)
Condition: Good
Diet: Low Cholesterol, Low Sodium and Diabetic, Carb Controlled
Activity: No strenuous activity
Driving Restrictions: Not until seen by your Dr
Bathing Restrictions: OK to Shower
Other Services: Cardiac Rehab
Specialty Instructions: Weigh Daily- Call MD for wt gain/loss 3 lbs overnight/5 lbs in 1 week
Referrals:
CT Transitional Care Nurse [Outside] - in one to two days
Referral Note:
The Cardiothoracic Transitional Care Nurse will call you to set up a visit in 1-2 days.
[facility]. Cardiac Rehab [Outside] - 10/27/25 9:00 am
Referral Note: Cardiac Rehab Orientation appointment is on 10/27/25 at 9 AM
The Cardiac Rehab gym is located on the first floor of the [facility].
Lore Covington CRNP [Specified Professional Personl, Cardiology] - 11/06/25 1:40 pm
Adrianna Bird MD [Family Provider, Family Practice] - in four to six weeks
Referral Note: Please make an apppointment in four to six weeks.
Ai Hoover MD [Active, Cardiac Surgery] - 10/25/25 10:30 am
Prescriptions:
New
clopidogrel 75 mg Tablet
75 mg PO DAILY Qty: 30 2RF
pantoprazole 40 mg Tablet,Delayed Release (/Ec)
40 mg PO DAILY Qty: 30 2RF
metoprolol succinate 25 mg Tablet Extended Release 24 Hr
25 mg PO DAILY Qty: 30 2RF
cyclobenzaprine 10 mg Tablet
5 mg PO Q8HPRN PRN (Reason: muscle spasm) Qty: 10 0RF
oxycodone 5 mg Tablet
5 mg PO Q4HPRN PRN (Reason: severe pain) Qty: 10 0RF
furosemide [Lasix] 20 mg tablet
20 mg PO .daily prn Qty: 7 0RF
Rx Instructions:
daily as needed for weight gain more than 2 pounds per day or 5 pounds in a week
Continued
(DME) Contour Next Test Strips Strip
Qty: 100 0RF
Rx Instructions:
Pt Testing 4 times a day
(DME) lancets [Microlet Lancet] Misc
Qty: 100 0RF
Rx Instructions:
Pt testing 4 times a day
(DME) pen needle, diabetic [Matilde 2nd Gen Pen Needle] 32 gauge x 5/32' Needle
Qty: 200 0RF
Rx Instructions:
Pt testing 4 times a day
metformin 500 mg Tablet
500 mg PO BID@0800,1700 Qty: 60 0RF
Rx Instructions:
Pt testing 4 times a day
insulin glargine [Lantus Solostar U-100 Insulin] 100 unit/mL (3 mL) insulin pen
3 unit SC HS
Rx Instructions:
PT TAKING INSULIN 4 TIMES A DAY
acetaminophen 325 mg tablet
650 mg PO Q4HPRN PRN (Reason: pain)
insulin aspart U-100 [Novolog FlexPen U-100 Insulin] 100 unit/mL (3 mL) insulin pen
5 unit SC AC PRN (Reason: if glucose >140)
Rx Instructions:
PT TAKING INSULIN 4 TIMES A DAY
aspirin 81 mg tablet,chewable
81 mg PO DAILY
rosuvastatin 20 mg Tablet
40 mg PO QPM Qty: 30 3RF
Discontinued
nitroglycerin 0.4 mg Tablet, Sublingual
0.4 mg SUBLINGUAL Q5-15M PRN (Reason: chest pain)
Patient Comments:
Has not taken
metoprolol succinate 50 mg tablet extended release 24 hr
50 mg PO DAILY
isosorbide mononitrate 30 mg tablet extended release 24 hr
30 mg PO DAILY
valsartan 80 mg tablet
80 mg PO DAILY
spironolactone 25 mg tablet
25 mg PO DAILY
ticagrelor 90 mg tablet
90 mg PO BID
Discharge Orders:
Discharge Patient (As Directed); Ordered 09/27/25
Ordered By: Elisa Land
Discharge Date and Time
Discharge Date/Time: 09/27/25 10:55
Print Language: [place]
--- NOTE | 2025-09-27 10:59 | PTCARENOTE ---
pt showered, IV and tele dc'd. pt dressed self. discharge instructions reviewed w/ patient and father. home meds reviewed, questions answered. pt left w/ all belongings via wheelchair by volunteer escort.
--- NOTE | 2025-09-27 11:13 | CM ---
Reviewed chart. Met [facility] Miss Del Cid to review discharge plans. She states she is feeling well and maybe able to go home soon. We reviewed a home visit by the Transitional Care Nurse. she is agreeable to a home visit. She is planning on going
to the apartment in [place], [place]. Her father will be around to check on her. Medical work-up in progress. The discharge plan is to go to the apartment with her father checking on her and a home visit by the Transitional Care Nurse when medically
stable.
== END 2025-09-27 10:55 | disposition home or self-care (01) | DRG 235 ==
LOC: CVICU 04:55
PROVIDERS: Anesthesiology; Clinical Nurse Specialist Acute Care; Physician Assistant Medical; ADMITTING PHYSICIAN Student in an Organized Health Care Education/Training Program; CONSULT PHYSICIAN Internal Medicine Critical Care Medicine; CONSULT PHYSICIAN Student in an Organized Health Care Education/Training Program; FAMILY PHYSICIAN Family Medicine
PROC: 02L70CK Occlusion of Left Atrial Appendage with Extraluminal Device, Open Approach (ICD-10-PCS; 2025-09-22)
PROC: 5A1221Z Performance of Cardiac Output, Continuous (ICD-10-PCS; 2025-09-22)
PROC: B24BZZ4 Ultrasonography of Heart with Aorta, Transesophageal (ICD-10-PCS; 2025-09-22)
PROC: 06BP4ZZ Excision of Right Saphenous Vein, Percutaneous Endoscopic Approach (ICD-10-PCS; 2025-09-22)
PROC: 021209W Bypass Coronary Artery, Three Arteries from Aorta with Autologous Venous Tissue, Open Approach (ICD-10-PCS; 2025-09-22)
PROC: 02100Z9 Bypass Coronary Artery, One Artery from Left Internal Mammary, Open Approach (ICD-10-PCS; 2025-09-22)
PROC: 30233N1 Transfusion of Nonautologous Red Blood Cells into Peripheral Vein, Percutaneous Approach (ICD-10-PCS; 2025-09-26)
DX: I25.110 Atherosclerotic heart disease of native coronary artery with unstable angina pectoris (principal); J95.1 Acute pulmonary insufficiency following thoracic surgery; D62 Acute posthemorrhagic anemia; E87.1 Hypo-osmolality and hyponatremia; Z68.41 Body mass index [BMI] 40.0-44.9, adult; J98.11 Atelectasis; I95.81 Postprocedural hypotension; E87.70 Fluid overload, unspecified; E86.1 Hypovolemia; E11.65 Type 2 diabetes mellitus with hyperglycemia; E66.01 Morbid (severe) obesity due to excess calories; I25.5 Ischemic cardiomyopathy; E03.9 Hypothyroidism, unspecified; I10 Essential (primary) hypertension; E78.5 Hyperlipidemia, unspecified; F17.210 Nicotine dependence, cigarettes, uncomplicated; Y83.2 Surgical operation with anastomosis, bypass or graft as the cause of abnormal reaction of the patient, or of later complication, without mention of misadventure at the time of the procedure; I25.2 Old myocardial infarction; Z86.74 Personal history of sudden cardiac arrest; Z95.5 Presence of coronary angioplasty implant and graft; Z82.49 Family history of ischemic heart disease and other diseases of the circulatory system; Z79.4 Long term (current) use of insulin
CPT/HCPCS: 36415; 71045; 71046; 80048; 80053; 81003; 81015; 82248; 82330; 82565; 82805; 82810; 82947; 82962; 83036; 83735; 84132; 84302; 84520; 85014; 85018; 85025; 85027; 85049; 85610; 85730; 86850; 86900; 86901; 86920; 87070; 88738; 93005; 93312; 93320; 93325; 94002; 94010; 94727; 94729; P9016; P9047